=== PATIENT | male | born 1975 | race Caucasian/White ===

== ENCOUNTER 2022-11-07 12:41 | Inpatient (IN) | payer BC ==
--- OUTSIDE RECORDS SUMMARY | 2022-11-07 12:44 | XMS REPORT | Continuity of Care Document ---
:1975 Author Organization [facility] t Address [address] [place] [address] Care Team Providers Name Role Phone Ena Gray MD Primary Care Physician Ghulam Felipe MD Attending Clinician Ena Gray MD Attending Clinician Doctor Unassigned, [place] Attending Clinician Unavailable Lupis Price Attending Clinician LUPIS MYERS Attending Clinician Unavailable Lab, Adc Fam Pob I Attending Clinician Unavailable ENA GRAY Attending Clinician Unavailable WELLINGTON TURNER Attending Clinician Unavailable Yohan Ponce PA-C Attending Clinician Payers Payer Name Policy Type Policy Number Effective Date Expiration Date S ource Problems Condition Condition Condition Status Onset Resolution Last Treating Co mments Source Name Details Category Date Date Treatment Clinician Date Attention Attention Disease Active Uni vers deficit deficit 4-26 ity of disorder disorder 00:00: [place] (ADD) (ADD) 00 Medical without without Branch hyperactiv hyperactiv ity ity Seasonal Seasonal Disease Active 2015-06 Unive rs allergic allergic 0-14 ity of rhinitis rhinitis 00:00: [place] due to due to 00 Medical pollen pollen Branch Bronchitis Bronchitis Disease Active 2015-06 U nivers 0-14 ity of 00:00: [place] 00 Medical Branch Allergies, Adverse Reactions, Alerts This patient has no known allergies or adverse reactions. Social History Social Habit Start Date Stop Date Quantity Comments Source History [facility] o f Alcohol Frequency [place] edical Branch History SDOH University o f Alcohol Std [place] Medical Drinks Branch History [facility] o f Alcohol Binge [place] Medic al Branch Exposure to 2022-01-29 2022-02-08 Not sure University SARS-CoV-2 00:00:00 12:20:00 [facility] (event) Branch Alcohol intake 2022-02-08 2022-02-08 Current drinker Unive rsity of 00:00:00 00:00:00 of alcohol [facility] (finding) [place] Tobacco use and 2016-03-24 2016-03-24 Smokeless tobacco Un iversity of exposure 00:00:00 00:00:00 non-user [facility] Alcohol Comment 2016-03-24 2016-03-24 rare Universit y of 00:00:00 00:00:00 [facility] Sex Ass[birth year] At [birth year] Universit y of 00:00:00 00:00:00 [facility] Smoking Status Start Date Stop Date Source Never smoked tobacco [facility] Medications Ordered Filled Start Stop Current Ordering Indication Dosage Frequency Signature Comments Components Source Medication Medication Date Date Medication? Clinician (SIG) Name Name amphetamine Yes [id number] 30mg Take 1 Univers -dextroamph 9-13 capsule by it y of etamine 30 00:00: mouth [place] mg 24 hr 00 every Medical capsule morning. Branch amphetamine Yes [id number] 30mg Take 1 Univers -dextroamph 9-13 capsule by it y of etamine 30 00:00: mouth [place] mg 24 hr 00 every Medical capsule morning. Branch cefadroxil Yes [id number] 500mg Take 1 Univers 500 mg 8-31 capsule by ity of capsule 00:00: mouth in [place] the Medical morning Branch and 1 capsule in the evening. lisdexamfet 2021- Yes [id number] 60mg Take 1 Univers amine 60 mg 8-31 capsule by it y of capsule 00:00: mouth [place] 00 every Medical morning. Branch cefadroxil Yes [id number] 500mg Take 1 Univers 500 mg 8-31 capsule by ity of capsule 00:00: mouth in [place] the Medical morning Branch and 1 capsule in the evening. lisdexamfet 2021- Yes [id number] 60mg Take 1 Univers amine 60 mg 8-31 capsule by it y of capsule 00:00: mouth [place] 00 every Medical morning. Branch cefadroxil Yes [id number] 500mg Take 1 Univers 500 mg 8-31 capsule by ity of capsule 00:00: mouth in [place] [address] the Medical morning Branch and 1 capsule in the evening. lisdexamfet Yes [id number] 60mg Take 1 Univers amine 60 mg 8-31 capsule by it y of capsule 00:00: mouth [place] [address] every Medical morning. Branch OMEPRAZOLE Yes Take by [facility] ers MAGNESIUM 4-26 mouth. ity of (PRILOSEC 14:16: [place] OTC ORAL) Medical Branch cetirizine Yes 10mg Take 10 mg U nivers (ZYRTEC) 10 4-26 by mouth ity of mg tablet 14:16: daily. [place] [address] Medical Branch OMEPRAZOLE Yes Take by [facility] ers MAGNESIUM 4-26 mouth. ity of (PRILOSEC 14:16: [place] OTC ORAL) Medical Branch cetirizine Yes 10mg Take 10 mg U nivers (ZYRTEC) 10 4-26 by mouth ity of mg tablet 14:16: daily. [place] [address] Medical Branch OMEPRAZOLE Yes Take by [facility] ers MAGNESIUM 4-26 mouth. ity of (PRILOSEC 14:16: [place] OTC ORAL) Medical Branch cetirizine Yes 10mg Take 10 mg U nivers (ZYRTEC) 10 4-26 by mouth ity of mg tablet 14:16: daily. [place] [address] Medical Branch mometasone 2017-06 Yes [id number] 2 sprays Univers 50 0-25 in each ity of mcg/actuati 00:00: nostril [place] as on nasal 00 daily Medical spray Branch mometasone 2017-06 Yes [id number] 2 sprays Univers 50 0-25 in each ity of mcg/actuati 00:00: nostril [place] as on nasal 00 daily Medical spray Branch mometasone 2017-06 Yes [id number] 2 sprays Univers 50 0-25 in each ity of mcg/actuati 00:00: nostril [place] as on nasal 00 daily Medical spray Branch Immunizations Ordered Filled Immunization Date Status Comments [facility] e Immunization Name Name TDAP 2020-10-04 Completed University of 00:00:00 [facility] TDAP 2020-10-04 Completed University of 00:00:00 [facility] TDAP 2020-10-04 Completed University of 00:00:00 [facility] SARS-COV-2 COVID-19 2020-09-17 Completed Unive rsity of PFIZER VACCINE 00:00:00 [facility] SARS-COV-2 COVID-19 2020-09-17 Completed Unive rsity of PFIZER VACCINE 00:00:00 [facility] SARS-COV-2 COVID-19 2020-09-17 Completed Unive rsity of PFIZER VACCINE 00:00:00 [facility] SARS-COV-2 COVID-19 2020-08-27 Completed Unive rsity of PFIZER VACCINE 00:00:00 [facility] SARS-COV-2 COVID-19 2020-08-27 Completed Unive rsity of PFIZER VACCINE 00:00:00 [facility] SARS-COV-2 COVID-19 2020-08-27 Completed Unive rsity of PFIZER VACCINE 00:00:00 [facility] Procedures Procedure Date / Time Performing Clinician Source Performed INSURANCE CORRESPONDENCE 2022-02-11 05:01:00 Doctor Unassigned, [facility] [place] [facility] Encounters Start End Encounter Admission Attending Care Care Encounter Source Date/Time Date/Time Type Type Clinicians Facility Department ID 2022-11-07 2022-11-07 Telephone Destinee [facility] [id number] Univers 00:00:00 00:00:00 [facility] [id number] it y of Anselmo LAWSON 4.2.7.2.686 [place] as PEEWEE?BLEA [id number] [address] MEDICAL OFFICE BUILDING 2022-02-14 2022-02-14 Telephone FleiceRUST [id number] Univers 00:00:00 00:00:00 Ena HEALTH [id number] it y of [place] 4.2.7.2.686 [place] as PEEWEE?BLEA [phone] [address] MEDICAL OFFICE BUILDING 2022-02-11 2022-02-11 Orders Doctor ALMANZAR [id number] Univers 00:00:00 00:00:00 Only Unassigned, JOSEPH [id number] ity of [place] [facility] [id number] [place] as [id number] [address] 2022-02-08 2022-02-08 Office Ena Gray [facility] [id number] Univers 13:00:00 13:15:00 Visit Lupis Myers [facility] [id number] ity of [facility] 4.2.7.2.686 [place] as PEEWEE?BLEA [id number] [address] MEDICAL OFFICE [facility] 2022-02-08 2022-02-08 Outpatient R ANNIE [facility] [id number] Univers 13:00:00 13:00:00 LUPISLESVIA [facility] 2022-02-08 2022-02-08 Outpatient R ANNIE [facility] [id number] Univers 13:00:00 12:47:51 LUPIS ity [facility] 2022-02-08 2022-02-08 Telephone FeliceRUST [id number] Univers 00:00:00 00:00:00 Ena HEALTH [id number] it y of [facility] 4.2.7.2.686 Babatunde as PEEWEE?BLEA [id number] [facility] [address] [place] MEDICAL OFFICE [facility] 2022-02-07 2022-02-07 Refill FeliceRUST [id number] Univers 00:00:00 00:00:00 Ena HEALTH 350.1.13.10 it y of [facility] 4.2.7.2.686 Babatunde as PEEWEE?BLEA [phone] [facility] [address] [place] MEDICAL OFFICE [facility] 2022-01-02 2022-01-02 Orders Doctor ALMANZAR [id number] Univers 00:00:00 00:00:00 Only Unassigned, JOSEPH [id number] ity of [place] [facility] 4.2.7.2.686 Bab[place] as [id number] [address] 2021-12-16 2021-12-16 Orders Doctor YOHAN [id number] [id number] Univers 00:00:00 00:00:00 Only Unassigned, JOSEPH [id number] ity of [place] [facility] 4.2.7.2.686 Babatunde as [id number] [address] 2021-08-31 2021-08-31 Refill FeliceRUST [id number] Univers 00:00:00 00:00:00 [facility] [id number] it y of [facility] 4.2.7.2.686 Babatunde as PEEWEE?BLEA [id number] [address] OFFICE BUILDING 2020-10-06 2020-10-06 Telephone FeliceRUST [id number] Univers 00:00:00 00:00:00 [facility] [id number] it y of [place] 4.2.7.2.686 Babatunde as Professio [id number] [address] Office Building [facility] 2020-10-04 2020-10-04 Office FeliceRUST [id number] Univers 13:51:51 15:19:55 Visit [facility] [id number] it y of [place] 4.2.7.2.686 Babatunde as Professio [phone] [address] Office [facility] 2020-10-04 2020-10-04 Personnel Consultant Lab, Adc Fam Pob I [facility] 1.2. [id number] Univers 14:48:58 15:08:58 Visit Felice Ena [facility] [id number] ity of [place] 4.2.7.2.686 Babatunde as Professio [phone] [address] Office [facility] 2020-10-04 2020-10-04 Outpatient R GRAY [facility] [id number] Univers 14:15:00 14:15:00 [facility] 2020-10-04 2020-10-04 Orders Doctor ALMANZAR [id number] [id number] Univers 00:00:00 00:00:00 Only Unassigned, JOSEPH 350.1.13.10 ity of [place] [facility] 4.2.7.2.686 Babatunde as [id number] [address] 2020-09-17 2020-09-17 Outpatient R JOHNNY, [facility] [id number] Univers 08:10:00 08:10:00 [place] ity [facility] 2020-08-27 2020-08-27 [facility] [id number] Univers 08:10:00 08:10:00 [place] ity [facility] 2020-08-24 2020-08-24 Telephone GrayRUST [id number] Univers 00:00:00 00:00:00 Ena Health 350.1.13.10 it y of [place] 4.2.7.2.686 Babatunde as Professio [phone] [address] Office [facility] 2020-04-01 2020-04-01 Telephone Annie [facility] [id number] Univers 00:00:00 00:00:00 Lupis A Health 350.1.13.10 i ty of [place] 4.2.7.2.686 Babatunde as Professio [id number] [facility] nal [address] [place] [address] 2020-03-31 2020-03-31 Laboratory Lab, Adc Fam Pob I [facility] 1.2. [id number] [id number] Univers 16:27:59 16:47:59 Only Yohan Ponce Health 350.1.13.10 ity of [place] 4.2.7.2.686 Babatunde as Professio [phone] Tn dical nal [address] [place] [address] Office [facility] 2020-03-31 2020-03-31 Outpatient R [facility] [id number] Univers 16:40:00 16:40:00 ity of [facility] 2020-03-31 2020-03-31 Letter Doctor ALMANZAR 1.2.840.114 [id number] Univers 00:00:00 00:00:00 (Out) Unassigned, JOSEPH 350.1.13.10 ity of [place] [facility] 4.2.7.2.686 Bab[place]unde as [phone] [place] [address] Branch 2020-03-31 2020-03-31 Letter Doctor YOHAN 1.2.840.114 [id number] 00:00:00 00:00:00 (Out) Unassigned, JOSEPH 350.1.13.10 ity of [place] [facility] 4.2.7.2.686 [place] as [phone] [place] [address] Branch Results This patient has no known results.
[2022-11-07 13:15] LABS: Absolute Lymphocytes (CBC) 1.5 K/uL (0.7-4.9); Hematocrit 43.5 % (39.6-49.0); Lymphocytes % 26.6 % (15.3-44.8); MCV 72.6 fL (80-100); MPV 10.1 fL (7.6-11.3); RBC Red Blood Cell Count 5.99 M/uL (4.33-5.43)
[2022-11-07 13:35] LABS: ALT/SGPT 62 U/L (16-61); AST/SGOT 31 U/L (15-37); Albumin 3.8 g/dL (3.4-5.0); Alkaline Phosphatase 72 U/L (45-117); BUN Blood Urea Nitrogen 19 mg/dL (7-18); Bicarbonate 25 mEq/L (21-32); Bilirubin Direct 0.1 mg/dL (0-0.2); Bilirubin Indirect, Calculated 0.7 mg/dL (0.2-0.8); Bilirubin Total 0.8 mg/dL (0.2-1.0); Glomerular Filtration Rate 93 ml/min (=/>90); Glucose Level 226 mg/dL (74-106); Magnesium 1.9 mg/dL (1.6-2.4); Potassium 3.3 mEq/L (3.5-5.1); Protein, Total 8.4 g/dL (6.4-8.2); Sodium Level 132 mEq/L (136-145)
[2022-11-07 13:37] LABS: NT PRO-BNP < 5 pg/mL (<125)
[2022-11-07 13:38] LABS: Troponin High Sensitivity 62.4 pg/mL (<58.9)
--- NOTE | 2022-11-07 14:02 | EDPHYS ---
Physician Documentation [facility] Name: Edmund Sarabia Age: 47 yrs Sex: Male : 1975 Arrival Date: 11/07/2022 Time: 12:41 Bed 5 Private MD: ED Physician Jeremy Ruiz HPI: 11/07 14:50 This 47 yrs old Male presents to ER via Ambulatory with complaints of Chest Pain. kb 14:50 The patient or guardian reports chest pain that is located primarily in the substernal kb area. Onset: this morning, at 09:00. The pain radiates to the left arm. Associated signs and symptoms: Pertinent positives: shortness of breath. The chest pain is described as aching. Duration: The patient or guardian reports a single episode. Modifying factors: The symptoms are alleviated by NTG, X1. the symptoms are aggravated by nothing. Severity of pain: At its worst the pain was moderate in the emergency department the pain has resolved. The patient has not experienced similar symptoms in the past. The patient has not recently seen a physician. Historical: - Allergies: 12:45 No Known Allergies; jl7 - Home Meds: 12:45 None [Active]; jl7 - PMHx: 12:45 None; jl7 - Immunization history:: Adult Immunizations unknown. - Social history:: Smoking status: Patient denies any tobacco usage or history of. ROS: 14:48 Constitutional: Negative for fever, chills, and weight loss. kb 14:48 Cardiovascular: Positive for chest pain, Negative for edema, orthopnea, palpitations, paroxysmal nocturnal dyspnea. 14:48 Respiratory: Positive for shortness of breath. 14:48 All other systems are negative. Exam: 14:48 Constitutional: This is a well developed, well nourished patient who is awake, alert, kb and in no acute distress. Head/Face: Normocephalic, atraumatic. ENT: Moist Mucous membranes Chest/axilla: Normal chest wall appearance and motion. Cardiovascular: Regular rate and rhythm with a normal S1 and S2. No gallops, murmurs, or rubs. No pulse deficits. Respiratory: Respirations even and unlabored. No increased work of breathing. Talking in full sentences Abdomen/GI: Soft, non-tender. No distention Skin: Warm, dry with normal turgor. Normal color. MS/ Extremity: Pulses equal, no cyanosis. Neurovascular intact. Full, normal range of motion. Neuro: Awake and alert, GCS 15, oriented to person, place, time, and situation. Moves all extremities. Normal gait. Vital Signs: 12:43 BP 150 / 91; Pulse 80; Resp 15; Temp 97.9; Pulse Ox 96% ; Weight 90.72 kg; Height 6 ft. jl7 0 in. ; Pain 4/10; 13:06 BP 145 / 87; Pulse 85; Resp 15; Pulse Ox 96% ; jl7 19:41 BP 128 / 82; Pulse 73; Resp 17; Temp 98.1(O); Pulse Ox 96% on R/A; rv 12:43 Body Mass Index 27.12 (90.72 kg, 182.88 cm) jl7 12:43 Pain Scale: Adult jl7 MDM: 12:46 Patient medically screened. kb 14:48 Data reviewed: vital signs, nurses notes. kb 14:48 Differential diagnosis: abnormal EKG, acute myocardial infarction, coronary artery kb disease chest wall pain. 14:49 Consideration of Admission/Observation Patient was admitted/placed on observation. kb Management of patient was discussed with the following: Hospitalist: Jean Claude accepts pt for admission under Dr Perez. Historians other than the Patient: EMS: [facility]. Counseling: I had a detailed discussion with the patient and/or guardian regarding: the historical points, exam findings, and any diagnostic results supporting the discharge/admit diagnosis, lab results, radiology results, the need for further work-up and treatment in the hospital. 11/07 12:55 Order name: Basic Metabolic Panel; Complete Time: 13:39 kb 11/07 12:55 Order name: CBC with Diff; Complete Time: 13:21 kb 11/07 12:55 Order name: D-Dimer; Complete Time: 13:21 kb 11/07 12:55 Order name: LFT's; Complete Time: 13:39 kb 11/07 12:55 Order name: Magnesium; Complete Time: 13:39 kb 11/07 12:55 Order name: NT PRO-BNP; Complete Time: 13:39 kb 11/07 12:55 Order name: Troponin HS; Complete Time: 13:39 kb 11/07 16:19 Order name: Hemoglobin A1c; Complete Time: 17:46 EDMS 11/07 16:19 Order name: Magnesium; Complete Time: 17:08 EDNE 11/07 16:19 Order name: Phosphorus; Complete Time: 17:08 [facility]NE 11/07 16:19 Order name: T4 Free; Complete Time: 17:08 [facility] 11/07 16:19 Order name: Thyroid Stimulating Hormone; Complete Time: 17:08 [facility] 11/07 16:19 Order name: Urinalysis w/ reflexes [facility] 11/07 16:19 Order name: Basic Metabolic Panel [facility] 11/07 16:19 Order name: Basic Metabolic Panel [facility] 11/07 16:20 Order name: CBC with Automated Diff [facility] 11/07 16:20 Order name: CBC with Automated Diff [facility] 11/07 16:20 Order name: Lipid Profile [facility] 11/07 16:20 Order name: Lipid Profile [facility] 11/07 16:20 Order name: Troponin High Sensitivity [facility] 11/07 16:20 Order name: Troponin High Sensitivity [facility] 11/07 16:20 Order name: Troponin High Sensitivity [facility] 11/07 12:55 Order name: XRAY Chest (1 view); Complete Time: 14:34 kb 11/07 16:19 Order name: Echo with Doppler [facility] 11/07 12:55 Order name: EKG; Complete Time: 12:56 kb 11/07 16:19 Order name: CONS Physician Consult [facility] 11/07 16:19 Order name: Heart Healthy [facility] 11/07 12:55 Order name: Cardiac monitoring; Complete Time: 13:07 kb 11/07 12:55 Order name: EKG - Nurse/Tech; Complete Time: 13:07 kb 11/07 12:55 Order name: IV Saline Lock; Complete Time: 13:07 kb 11/07 12:55 Order name: Labs collected and sent; Complete Time: 13:07 kb 11/07 12:55 Order name: O2 Per Protocol; Complete Time: 13:07 kb 11/07 12:55 Order name: O2 Sat Monitoring; Complete Time: 13:07 kb Administered Medications: 15:06 Drug: Aspirin PO Chewable Tablet 324 mg Route: PO; ll1 19:43 Follow up: Response: No adverse reaction rv Disposition: 11/08 08:31 Co-signature as Attending Physician, Jeremy Ruiz MD I reviewed the patient's care rn provided by the Advanced Practice Provider and agree with the diagnosis and treatment plan. Disposition Summary: 11/07/22 14:01 Hospitalization Ordered Hospitalization Status: Inpatient Admission kb Provider: Caleb Perez Condition: Stable kb Problem: new kb Symptoms: are unchanged kb Bed/Room Type: Standard kb Location: Telemetry/MedSurg (Inpatient)(11/07/22 17:52) bd Room Assignment: 214(11/07/22 17:52) bd Diagnosis - Chest pain, unspecified - NSTEMI kb Forms: - Medication Reconciliation Form kb - SBAR form kb Signatures: Dispatcher [employer] EDMS Judie Teixeira, SUSANA-C PHOTOVOLTAIC PANEL INSTALLER-Ckb Aleida Caba Roman, MD MD rn Orville Posadas RN RN jl7 Hue Mccormick RN RN ll1 Giles Jeffers RN rv Corrections: (The following items were deleted from the chart) 11/07 14:50 14:48 The patient was not given aspirin in the Emergency Department. Administered by EMS. jovani 17:08 14:01 Telemetry/MedSurg (Inpatient) jovani jl7 17:08 14:01 jovani jl7 17:52 17:08 [facility] ER HOLD jl7 bd 17:52 17:08 ERHOLD- jl7 bd
--- NOTE | 2022-11-07 14:02 | ER ---
Nurse's Notes [facility] Name: Edmund Sarabia Age: 47 yrs Sex: Male : 1975 Arrival Date: 11/07/2022 Time: 12:41 Bed 5 Private MD: Diagnosis: Chest pain, unspecified-NSTEMI Presentation: 11/07 12:43 Chief complaint: EMS states: Toned out for chest pain, squeezing, radiates to left arm, jl7 rated 5/10; 1 nitro given in route, pain down to 4/10. BGL 218, no hx. Coronavirus screen: At this time, the client does not indicate any symptoms associated with coronavirus-19. Ebola Screen: No symptoms or risks identified at this time. Initial Sepsis Screen: Does the patient meet any 2 criteria? No. Patient's initial sepsis screen is negative. Does the patient have a suspected source of infection? No. Patient's initial sepsis screen is negative. Risk Assessment: Do you want to hurt yourself or someone else? Patient reports no desire to harm self or others. Onset of symptoms was November 07, 2022 at 09:30. 12:43 Method Of Arrival: Ambulatory jl7 12:43 Acuity: IRASEMA 2 jl7 Triage Assessment: 13:06 General: Appears in no apparent distress. uncomfortable, Behavior is cooperative, jl7 appropriate for age, anxious. Pain: Complains of pain in anterior aspect of left upper chest Pain radiates to left arm Pain currently is 4 out of 10 on a pain scale. at worst was 5 out of 10 on a pain scale. Quality of pain is described as squeezing, tingling, Pain began 4 hours ago. Neuro: Level of Consciousness is awake, alert, obeys commands, Oriented to person, place, time, situation. Cardiovascular: Patient's skin is warm and dry. Rhythm is regular. Respiratory: Reports shortness of breath Airway is patent Respiratory effort is even, unlabored, Respiratory pattern is regular, symmetrical. Derm: Skin is pink, warm \T\ dry. Historical: - Allergies: 12:45 No Known Allergies; jl7 - Home Meds: 12:45 None [Active]; jl7 - PMHx: 12:45 None; jl7 - Immunization history:: Adult Immunizations unknown. - Social history:: Smoking status: Patient denies any tobacco usage or history of. Screenin:07 [facility] ED Fall Risk Assessment (Adult) History of falling in the last 3 months, jl7 including since admission No falls in past 3 months (0 pts) Score/Fall Risk Level 0 - 2 = Low Risk Oriented to surroundings, Maintained a safe environment. Abuse screen: Denies threats or abuse. Denies injuries from another. Nutritional screening: No deficits noted. Tuberculosis screening: No symptoms or risk factors identified. Assessment: 15:06 Reassessment: No changes from previously documented assessment. Patient and/or family ll1 updated on plan of care and expected duration. Pain level reassessed. 17:59 Reassessment: Attempted to call report, Jesenia Schulz RN will be the nurse, she jl7 will call back after hanging TPN on another pt. Vital Signs: 12:43 BP 150 / 91; Pulse 80; Resp 15; Temp 97.9; Pulse Ox 96% ; Weight 90.72 kg; Height 6 ft. jl7 0 in. ; Pain 4/10; 13:06 BP 145 / 87; Pulse 85; Resp 15; Pulse Ox 96% ; jl7 19:41 BP 128 / 82; Pulse 73; Resp 17; Temp 98.1(O); Pulse Ox 96% on R/A; rv 12:43 Body Mass Index 27.12 (90.72 kg, 182.88 cm) jl7 12:43 Pain Scale: Adult jl7 ED Course: 12:43 Patient arrived in ED. jl7 12:45 Triage completed. jl7 12:45 Arm band placed on right wrist. jl7 12:46 Judie Teixeira FNP-C [facility]. kb 12:46 Jeremy Ruiz MD is Attending Physician. kb 13:00 Orville Posadas RN is Primary Nurse. jl7 13:07 Patient has correct armband on for positive identification. Placed in gown. Bed in low jl7 position. Call light in reach. Side rails up X 1. Client placed on continuous cardiac and pulse oximetry monitoring. NIBP monitoring applied. 13:07 Initial lab(s) drawn, by ED staff, sent to lab. EKG done, by ED staff, reviewed by eileen ARRIETA. Inserted saline lock: 20 gauge in right antecubital area, using aseptic technique. Blood collected. Patient maintains SpO2 saturation greater than 95% on room air. 13:29 XRAY Chest (1 view) In Process Unspecified. EDMS 14:01 Caleb Perez is Hospitalizing Provider. kb 19:08 Primary Nurse role handed off by Orville Posadas, PARMINDER jl7 19:41 Giles Jeffers, RN is Primary Nurse. rv 19:59 No provider procedures requiring assistance completed. Patient admitted, IV remains in rv place. Administered Medications: 15:06 Drug: Aspirin PO Chewable Tablet 324 mg Route: PO; ll1 19:43 Follow up: Response: No adverse reaction rv Medication: 13:07 VIS not applicable for this client. jl7 Outcome: 14:01 Decision to Hospitalize by Provider. kb 19:59 Admitted to Med/surg accompanied by tech, via wheelchair, room 214, with chart, Report rv called to Isaac ZURITA 19:59 Condition: good 19:59 Instructed on the need for admit. 20:00 Patient left the ED. rv Signatures: Dispatcher [employer] EDMS Judie Teixeira, DIALYSIS SOCIAL WORKER-C DIALYSIS SOCIAL WORKER-Ckb Orville Posadas, RN RN jl7 Giles Jeffers, RN RN Hue Nunez RN RN ll1
--- NOTE | 2022-11-07 14:32 | RAD REPORT ---
EXAM DESCRIPTION: Roland Single View11/07/2022 1:28 pm CLINICAL HISTORY: Chest pain COMPARISON: none FINDINGS: The lungs appear clear of acute infiltrate. The heart is normal size IMPRESSION: No acute abnormalities displayed
[2022-11-07] MEDS ORDERED: ASPIRIN 81 MG CHEWABLE TABLET ONE (15:11)
[2022-11-07] MEDS ORDERED: HYDROCODONE/APAP 5/325 MG TAB PO PRN (16:14)
[2022-11-07] MEDS ORDERED: ONDANSETRON 4 MG/2 ML VIAL IV PRN (16:17)
[2022-11-07] MEDS ORDERED: POTASSIUM CL SA 10 MEQ TAB PO ONE (16:20)
--- NOTE | 2022-11-07 16:20 | P.HP ---
Certification for Inpatient Patient admitted to: Observation With expected LOS: <2 Midnights Patient will require the following post-hospital care: None Practitioner: I am a practitioner with admitting privileges, knowledge of patient current condition, hospital course, and medical plan of care. Services: Services provided to patient in accordance with Admission requirements found in Title 42 Section 412.3 of the Code of Federal Regulations Patient History Date of Service: 11/07/22 Reason for admission: chest pain History of Present Illness: Patient is a 47-year-old male with no known past medical history presents with complaint of chest pain located in the substernal area onset this morning while at work. Patient reported that he was standing when he started experiencing pain at work today. Patient rated pain as 6/10 in severity and described pain as tightness in quality. Patient stated that pain radiates to the back of his neck. Patient reported associated signs and symptoms of headache, left hand numbness and dizziness. Patient denies any other signs or symptoms. Symptoms are aggravated or relieved by nothing. Patient was brought to the hospital for medical evaluation. Allergies No Known Allergies Allergy (Unverified 11/07/22 17:05) - Past Medical/Surgical History Past Surgical History: Reviewed- Non-Contributory - Family History Family History: Reviewed- Non-Contributory - Social History Smoking Status: Never smoker Alcohol use: Yes CD- Drugs: No Caffeine use: No Place of Residence: Home Review of Systems General: Unremarkable Eyes: Unremarkable ENT: Unremarkable Respiratory: Unremarkable Cardiovascular: Chest Pain Gastrointestinal: Unremarkable Genitourinary: Unremarkable Musculoskeletal: Neck Pain Integumentary: Unremarkable Neurological: Numbness, Other (Headache, dizziness) Physical Examination - Physical Exam General: Alert, In no apparent distress, Oriented x3, Cooperative HEENT: Atraumatic, PERRLA, Mucous membr. moist/pink, EOMI, Sclerae nonicteric Neck: Supple, 2+ carotid pulse no bruit, No LAD, Without JVD or thyroid abnormality Respiratory: Clear to auscultation bilaterally, Normal air movement Cardiovascular: No edema, Regular rate/rhythm, Normal S1 S2 Capillary refill: <2 Seconds Gastrointestinal: Normal bowel sounds, Soft and benign, No tenderness Musculoskeletal: No clubbing, No swelling, No tenderness Integumentary: No rashes, No tenderness/swelling Neurological: Normal speech, Normal tone, Normal affect Lymphatics: No axilla or inguinal lymphadenopathy - Studies Laboratory Data (last 24 hrs) 11/07/22 13:02: WBC 5.70, Hgb 14.1, Hct 43.5, Plt Count 195 11/07/22 13:02: Sodium 132 L, Potassium 3.3 L, BUN 19 H, Creatinine 0.99, Glucose 226 H, Magnesium 1.9, Total Bilirubin 0.8, AST 31, ALT 62 H, Alkaline Phosphatase 72 Assessment and Plan - Plan --Chest pain. To rule out ACS. Troponin elevated--62.4. Will trend serial troponins. Telemetry to monitor for any significant arrhythmia. Echocardiogram pending to assess cardiac structures and functions. Patient placed on weight- based Lovenox subQ. Cardiology consulted. We will await further recommendations. --New onset DM2. Hemoglobin A1c is 11.8. BS monitoring with sliding scale insulin. Diabetic education consult initiated. --Hypokalemia. Replete as needed. --Acute pain. We will manage pain with current pain medication regimen. --Headache. Tylenol as needed. --DVT prophylaxis with Lovenox subQ. Discharge Plan: Home Plan to discharge in: 48 Hours - Advance Directives Does patient have a Living Will: No Does patient have a Durable POA for Healthcare: No - Code Status/Comfort Care Code Status Assessed: Yes Physician Review: Patient Assessed, Agree with Above Assessment and Plan Critical Care: No
[2022-11-07] MEDS ORDERED: ENOXAPARIN 40 MG/0.4 ML SQ SCH (17:00)
[2022-11-07 17:07] LABS: Magnesium 1.9 mg/dL (1.6-2.4); Phosphorus 3.1 mg/dL (2.5-4.9); Thyroid Stimulating Hormone 1.29 uIU/mL (0.358-3.740)
[2022-11-07] MEDS ORDERED: ENOXAPARIN 80 MG/0.8 ML SQ SCH ×2 (18:44→21:00)
[2022-11-07] MEDS ORDERED: GLUCAGON 1 MG/VIAL IM PRN (19:17)
[2022-11-07] MEDS ORDERED: D50W 25 GM/50 ML SYRINGE IV PRN (19:17)
[2022-11-07] MEDS: ACETAMINOPHEN 325 MG TABLET PO PRN (20:54)
[2022-11-07] MEDS: ENOXAPARIN 100 MG/ML SYR SQ SCH (20:55)
[2022-11-07 21:06] VITALS: BMI 26.9
[2022-11-07] MEDS: INSULIN -REGULAR HUMAN 50 UNIT/0.5 ML ML SQ SCH (22:35)
[2022-11-08 03:40] LABS: Absolute Lymphocytes (CBC) 2.3 K/uL (0.7-4.9); Hematocrit 42.3 % (39.6-49.0); Lymphocytes % 39.6 % (15.3-44.8); MCV 72.6 fL (80-100); MPV 10.8 fL (7.6-11.3); RBC Red Blood Cell Count 5.82 M/uL (4.33-5.43)
[2022-11-08 03:59] LABS: BUN Blood Urea Nitrogen 21 mg/dL (7-18); Bicarbonate 28 mEq/L (21-32); Glomerular Filtration Rate 92 ml/min (=/>90); Glucose Level 181 mg/dL (74-106); HDL Cholesterol 25 mg/dL (40-60); Potassium 3.8 mEq/L (3.5-5.1); Sodium Level 135 mEq/L (136-145)
[2022-11-08 04:15] LABS: LDL, Direct 81 mg/dL (100-129)
[2022-11-08] MEDS ORDERED: POTASSIUM CL SA 10 MEQ TAB PO ONE (09:00)
[2022-11-08] MEDS: ENOXAPARIN 100 MG/ML SYR SQ SCH (09:14)
[2022-11-08] MEDS: INSULIN -REGULAR HUMAN 50 UNIT/0.5 ML ML SQ SCH ×4 (09:14→21:23)
[2022-11-08] MEDS: ACETAMINOPHEN 325 MG TABLET PO PRN (09:14)
[2022-11-08] MEDS: ASPIRIN 81 MG CHEWABLE TABLET PO SCH (09:14)
[2022-11-08] MEDS: PANTOPRAZOLE 40MG TABLET PO SCH (10:28)
--- NOTE | 2022-11-08 11:09 | CON ---
Date of Consultation: 11/08/2022 Reason For Consultation: [id number] myocardial infarction. History Of Present Illness: Mr. Sarabia is 47. He is unaware that he has any past medical history. He came into the hospital with chest pain radiating to the left arm, numbness in the left arm, positi ve troponin of 65, hypokalemic. His glucose was 280, triglyceride was 645. He denied diabetes himse lf. Denied hypertension, dyslipidemia. Denied family history and denied tobacco use. 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 Never has any past medical history or cardiac history before until no w. Past Medical History: Negative. Allergies: NONE. Medications: At home none. Review of Systems: Negative. Social History: Negative. Family History: Negative. Physical Examination: Vital Signs: Stable, afebrile. HEENT: Negative. Neck: Supple with no bruit. Chest: Clear. Cardiac: Reveals regular rhythm and rate. No murmurs, gallops, or rubs. Abdomen: Benign. Extremities: Revealed no clubbing, cyanosis, or edema. Diagnostic Data: EKG is nonspecific. Chest x-ray is negative. Glucose was 280, triglyceride of 645 . Troponin is 65. Potassium is 3.3. Impression And Plan: 1.Non-ST segment elevation myocardial infarction. 2.New onset diabetes. 3.New onset hypertriglyceridemia. 4.Hypokalemia. Needs to be corrected. He needs to be on Lovenox, aspirin, insulin, Tricor. We tess l plan a heart catheterization on him sometimes either today or tomorrow. Echocardiogram is pending. The patient understands the risk and the benefits of the procedure and he agrees to proceed. VIOLA/QUETA Voice ID: [id number] Report ID: [id number]
[2022-11-08] MEDS ORDERED: LIDOCAINE 1% 20 ML MDV ONE (13:32)
[2022-11-08] MEDS ORDERED: HEPA 1000U/500MLS 2,000 UNIT/1,000 ML BAG IV ONE (13:32)
[2022-11-08] MEDS ORDERED: FENTANYL CITR 100 MCG/2 ML ONE (13:33)
[2022-11-08] MEDS ORDERED: MIDAZOLAM HCL 2 MG/2 ML INJ ONE (13:33)
[2022-11-08] MEDS ORDERED: TICAGRELOR 90 MG TABLET PO ONE (13:34)
[2022-11-08] MEDS ORDERED: ASPIRIN 325 MG TAB ONE (13:34)
[2022-11-08] MEDS ORDERED: VERAPAMIL HCL 10 MG/4 ML VIAL IV ONE (13:34)
[2022-11-08] MEDS ORDERED: HEPARIN 5000 UNIT/ML 1 ML VIAL ONE (13:34)
[2022-11-08] MEDS ORDERED: CLOPIDOGREL 75 MG TABLET ONE (13:34)
[2022-11-08] MEDS ORDERED: HEPARIN 10,000 UNIT/10 ML VIAL IV ONE (13:34)
[2022-11-08] MEDS ORDERED: ATROPINE SULF 1 MG/10 ML SYR IV ONE (13:35)
[2022-11-08] MEDS ORDERED: NA CHLORIDE 0.9% 500 ML ONE (13:42)
--- NOTE | 2022-11-08 13:53 | P.PN ---
Subjective Date of Service: 11/08/22 Chief Complaint: chest pain Patient reports 2 intermittent episodes of of mild left-sided chest pain. He is also complaining of headache. Physical Examination - Vital Signs Temperature: 97.6 F Blood Pressure: 138/79 Pulse: 73 Respirations: 18 Pulse Ox (%): 96 - Physical Exam General: Alert, In no apparent distress, Oriented x3 HEENT: Mucous membr. moist/pink Neck: JVD not distended Respiratory: Clear to auscultation bilaterally, Normal air movement Cardiovascular: No edema, Regular rate/rhythm, Normal S1 S2, No murmurs Gastrointestinal: Normal bowel sounds, Soft and benign, Non-distended, No tenderness Musculoskeletal: No swelling, No tenderness Integumentary: No rashes, No cyanosis Neurological: Normal speech, Normal strength at 5/5 x4 extr Assessment And Plan - Current Problems (Diagnosis) (1) Chest pain Current Visit: Yes Status: Acute (2) Hypertriglyceridemia Current Visit: Yes Status: Chronic (3) Type 2 diabetes mellitus Current Visit: Yes Status: Chronic - Plan Troponin mildly elevated. Seen by cardiology who recommended cardiac cath today. Echocardiogram ordered. Hold Lovenox for cardiac cath today Newly diagnosed diabetes. Insulin sliding scale for glucose management. Start Lantus insulin. Monitor fingerstick glucose. Headache likely related to nitroglycerin. Blood pressure readings improved. Start fenofibrate.
--- NOTE | 2022-11-08 14:39 | EKG ---
Test Date: 2022-11-07 Test Time: 12:56:11 Cafeteria Cashier: JAZZ MEASUREMENT RESULTS: Intervals: Rate: 84 WA: 148 QRSD: 90 QT: 352 QTc: 415 [place]: P: 53 WA: 148 QRS: 22 T: 49 INTERPRETIVE STATEMENTS: Normal sinus rhythm T wave abnormality, consider inferior ischemia Abnormal ECG No previous ECG available for comparison Electronically Signed On 11-08-22 14:36:56 CDT by Tucker Pablo
--- NOTE | 2022-11-08 15:55 | OP ---
Date of Procedure: 11/08/2022 Surgeon: VEENA JACK Procedures Performed: 1.Selective coronary angiogram. 2.Left heart catheterization. 3.Balloon angioplasty of totally occluded proximal right PDA. I used 3.0 x 8 mm Compliant balloon. Indication: Non-ST elevation myocardial infarction. Access: Right radial artery 6-Ugandan closed with TR band. Complications: None. Bleeding: Less than 20 mL. Sedation: None. Description Of Procedure: After risks, benefits, alternatives were explained, the patient agreed to procedure and signed informed consent. The patient was brought into the cardiac catheterization [facility], prepped and draped in the usual sterile fashion. Then, I accessed right radial artery using pediatric micropuncture kit and ultrasound guidance and placed a 6-Ugandan Slender sheath and then too k 5-Ugandan [place] 4.0 catheter into the aortic root over a J-wire, engaged the left main and took gloria dard views and then the RCA and took standard views. Then, the catheter was advanced over the wire i nto the LV, measured the LVEDP, pullback did not record any gradient. The patient already received a full dose of Lovenox around 9 o'clock in the morning, so we gave partial dose of heparin 5000 only a nd then took a 6-Ugandan JR4 guide into the aortic root over a J-wire, engaged the RCA, took a Run-Thr ough wire into the PDA and with the wire passing, there was improvement of flow significantly and the n I took a 3.0 x 8 mm balloon and there was no significant disease. I did balloon angioplasty and th en removed the balloon and did an angiogram. The artery was 100% open with 0% residual stenosis and RUBI-3 flow, improving from RUBI-0 to RUBI-3 flow. I then removed the wire. Final angiogram was sat isfactory. I removed the guide and the sheath, and placed TR band with hemostasis. Findings: 1.Left main; large and normal. 2.LAD; normal proximal and mid segment and then luminal irregularities. Normal diagonal branches. 3.Left circumflex; moderate-sized vessel with luminal irregularities and the OM1 branch has proximal 30% stenosis. 4.RCA; large and dominant with proximal 20% stenosis. Then, the PLV has mid 40% stenosis and PDA wa s proximal 100% occluded with RUBI-0 flow, status post successful balloon angioplasty with restoratio n of RUBI-3 flow and 0% residual stenosis. Conclusion: 1.Severe right PDA stenosis, status post successful balloon angioplasty, likely the occlusion was du e to a thrombus as there is no significant disease of the area of 100% stenosis. 2.Moderate coronary artery disease otherwise. Plan: I recommend dual antiplatelet therapy and another 24 hours of IV heparin for therapeutic PTT a nd then the patient mostly needs high-dose statin and to follow up with me in the office in 4 weeks p ost discharge. At that time, we will obtain an echo. /QUETA Voice ID: [id number] Report ID: [id number]
[2022-11-08] MEDS ORDERED: D10W 250 ML BAG IV PRN (17:00)
[2022-11-08 20:53] LABS: Protime INR 1.03
[2022-11-08] MEDS: TICAGRELOR 90 MG TABLET PO SCH (21:23)
[2022-11-08 21:25] LABS: Urine Bilirubin NEGATIVE (Negative); Urine Blood Negative (Negative); Urine Clarity Clear (Clear); Urine Color Light-Yellow (Yellow); Urine Glucose 4+ (Negative); Urine Protein NEGATIVE (Negative); Urine Urobilinogen Normal (Normal)
[2022-11-08] MEDS: HEPARIN/D5W 25,000 UNIT/500 ML BAG IV PRN (21:30)
[2022-11-09 01:42] LABS: Potassium 3.6 mEq/L (3.5-5.1)
[2022-11-09] MEDS: PANTOPRAZOLE 40MG TABLET PO SCH (06:33)
--- NOTE | 2022-11-09 07:12 | ECHO ---
HEIGHT: 6 ft 0 in WEIGHT: 198 lb 6.4 oz DATE OF STUDY: 11/08/[address]: Rubén Aguirre 2-DIMENSIONAL: YES M.MODE: YES DOPPLER: YES COLOR FLOW: YES TDS: YES PORTABLE: YES DEFINITY: BUBBLE STUDY: DIAGNOSIS: CHEST PAIN CARDIAC HISTORY: CATHERIZATION: NO SURGERY: NO PROSTHETIC VALVE: NO PACEMAKER: NO MEASUREMENTS (cm) DIASTOLIC (NORMALS) SYSTOLIC (NORMALS) IVSd 1.1 (0.6-1.2) LA Diam 2.4 (1.9-4.0) LVEF 54% LVIDd 4.0 (3.5-5.7) LVIDs 2.9 (2.0-3.5) %FS 27% LVPWd 1.1 (0.6-1.2) Ao Diam 2.8 (2.0-3.7) 2 DIMENSIONAL ASSESSMENT: RIGHT ATRIUM: NORMAL LEFT ATRIUM: NORMAL RIGHT VENTRICLE: NORMAL LEFT VENTRICLE: NORMAL TRICUSPID VALVE: NORMAL MITRAL VALVE: NORMAL PULMONIC VALVE: NORMAL AORTIC VALVE: NORMAL PERICARDIAL EFFUSION: NONE AORTIC ROOT: NORMAL LEFT VENTRICULAR WALL MOTION: UNABLE TO ACCURATELY EVALUATE DOPPLER/COLOR FLOW: APPEARS NORMAL COMMENTS: 1. VERY POOR WINDOWS 2. OVERALL LEFT VENTRICULAR EJECTION FRACTION APPEARS NORMAL TECHNOLOGIST: RICHAR ESCOBEDO
[2022-11-09] MEDS ORDERED: FENOFIBRATE 160 MG TAB PO SCH (09:00)
[2022-11-09] MEDS ORDERED: POTASSIUM CL SA 10 MEQ TAB PO ONE (09:00)
[2022-11-09 09:06] VITALS: O2SAT 95
[2022-11-09] MEDS: ASPIRIN 81 MG CHEWABLE TABLET PO SCH (10:30)
[2022-11-09] MEDS: INSULIN -REGULAR HUMAN 50 UNIT/0.5 ML ML SQ SCH ×3 (10:37→17:04)
[2022-11-09] MEDS: TICAGRELOR 90 MG TABLET PO SCH ×2 (10:37→20:25)
--- NOTE | 2022-11-09 11:04 | PN ---
Date of Progress Note: 11/09/2022 Mr. Sarabia came in with a non-STEMI. A heart catheterization yesterday revealed a completely occlude d posterior descending artery of the RCA. However, Dr. Pablo was attempting to open up the artery; the artery opened up spontaneously. It was thought that this was a thrombus or maybe a small rupture d plaque. Nevertheless, patient was taken back to the floor. He is on heparin now for 24 hours. Th is will at 9 p.m. tonight, after which he goes home. He is not having any symptoms. At this point, his right wrist entry site is intact. Telemetry is normal. His blood pressure is normal. He has no chest pain. He will be going home on an aspirin, statin, Brilinta, antidiabetic medicine, an d antihypertriglyceridemia medicine. Case was discussed with Dr. Perez. He will see us in the offi ce in 2 weeks. VIOLA/QUETA Voice ID: [id number] Report ID: [id number]
[2022-11-09 16:27] VITALS: TEMP 98.1
--- NOTE | 2022-11-09 16:30 | P.DS ---
Admission Date: 11/08/22 Discharge Date: 11/09/22 Disposition: ROUTINE DISCHARGE Reason for Admission: chest pain - Problems (1) Chest pain Current Visit: Yes Status: Acute (2) Hypertriglyceridemia Current Visit: Yes Status: Chronic (3) Type 2 diabetes mellitus Current Visit: Yes Status: Chronic (4) CAD (coronary artery disease) Current Visit: Yes Status: Acute Brief History of Present Illness: Patient is a 47-year-old male with no known past medical history presented with complaint of chest pain located in the substernal area onset this morning while at work. Patient reported that he was standing when he started experiencing pain at work today. Patient rated pain as 6/10 in severity and described pain as tightness in quality. Patient stated that pain radiates to the back of his neck. Patient reported associated signs and symptoms of headache, left hand numbness and dizziness. Patient denies any other signs or symptoms. Symptoms are aggravated or relieved by nothing. Patient was brought to the hospital for medical evaluation. His initial troponin was mildly elevated. EKG did not meet STEMI criteria. Patient was hospitalized for further management. Hospital Course: Patient admitted to the medical floor and started on full dose Lovenox, aspirin and Lipitor. Lipid profile showed elevated triglyceride. LDL of 81. Patient was seen and evaluated by cardiology who performed cardiac cath which showed 100% occlusion of the PDA suspected to be secondary to a clot. Balloon angioplasty was done. Patient treated with heparin drip for another 24 hours postcardiac cath. His hemoglobin A1c was elevated to 11. Patient was treated with insulin sliding scale. He is discharged with Lantus insulin and metformin. Patient informed to monitor his blood sugar at home. Diabetic teaching done. Vitals have been stable stable. Patient is deemed stable for discharge. Vital Signs/Physical Exam: Temp Pulse Resp BP Pulse Ox 97.6 F 70 16 118/70 95 11/09/22 12:00 11/09/22 12:00 11/09/22 12:00 11/09/22 12:11/09/22 12:00 General: Alert, In no apparent distress, Oriented x3 HEENT: Mucous membr. moist/pink Neck: JVD not distended Respiratory: Clear to auscultation bilaterally, Normal air movement Cardiovascular: No edema, Regular rate/rhythm, Normal S1 S2 Gastrointestinal: Normal bowel sounds, Soft and benign, Non-distended, No tenderness Musculoskeletal: No swelling, No tenderness Integumentary: No rashes, No cyanosis Neurological: Normal strength at 5/5 x4 extr, Cranial nerves 3-12 intact Lymphatics: No axilla or inguinal lymphadenopathy Laboratory Data at Discharge: WBC 5.70 thou/uL (4.3-10.9) 11/08/22 02:52 Hgb 13.8 g/dL (13.6-17.9) 11/08/22 02:52 Hct 42.3 % (39.6-49.0) 11/08/22 02:52 Plt Count 195 thou/uL (152-406) 11/08/22 02:52 PT 11.3 SECONDS (9.5-12.5) 11/08/22 20:17 INR 1.03 11/08/22 20:17 APTT 42.2 SECONDS (24.3-36.9) H 11/09/22 15:25 Sodium 137 mEq/L (136-145) 11/09/22 01:16 Potassium 3.6 mEq/L (3.5-5.1) 11/09/22 01:16 BUN 21 mg/dL (7-18) H 11/09/22 01:16 Creatinine 0.95 mg/dL (0.70-1.30) 11/09/22 01:16 Glucose 223 mg/dL (74-106) H 11/09/22 01:16 Phosphorus 3.1 mg/dL (2.5-4.9) 11/07/22 16:34 Magnesium 1.9 mg/dL (1.6-2.4) 11/07/22 16:34 Total Bilirubin 0.8 mg/dL (0.2-1.0) 11/07/22 13:02 AST 31 U/L (15-37) 11/07/22 13:02 ALT 62 U/L (16-61) H 11/07/22 13:02 Alkaline Phosphatase 72 U/L (45-117) 11/07/22 13:02 Triglycerides 645 mg/dL (<150) H 11/08/22 02:52 Cholesterol 175 mg/dL (<200) 11/08/22 02:52 LDL Cholesterol Direct 81 mg/dL (100-129) L 11/08/22 02:52 HDL Cholesterol 25 mg/dL (40-60) L 11/08/22 02:52 Cholesterol/HDL Ratio 7.00 11/08/22 02:52 Home Medications: Alcohol Antiseptic Pads [Alcohol Swabs] 1 each TP DAILY #1 box 11/09/22 Aspirin Chewable [Aspirin Chewable*] 81 mg PO DAILY #30 tab.chew 11/09/22 Blood Sugar Diagnostic [Blood Glucose Test Strip] 1 each MC DAILY #30 strip 11/09/22 Blood-Glucose Meter [Blood Glucose Monitoring] 1 each MC DAILY #1 ea 11/09/22 Fenofibrate 160 mg PO DAILY #30 tab 11/09/22 Insulin Detemir [Levemir Flexpen] 15 unit SQ DAILY #15 ml 11/09/22 Lancets [Lancets Thin] 1 each MC DAILY #100 ea 11/09/22 Metformin HCl 500 mg PO BID #60 tab 11/09/22 Pantoprazole [Protonix Tab*] 40 mg PO DAILYAC #30 tab 11/09/22 Pen Needle, Diabetic [Insulin Pen Needle] 1 dis.ndl MC DAILY #100 dis.ndl 11/09/22 Ticagrelor [Brilinta*] 90 mg PO BID #30 tab 11/09/22 New Medications: Alcohol Antiseptic Pads [Alcohol Swabs] 1 each TP DAILY #1 box Aspirin Chewable [Aspirin Chewable*] 81 mg PO DAILY #30 tab.chew Blood-Glucose Meter [Blood Glucose Monitoring] 1 each MC DAILY #1 ea Blood Sugar Diagnostic [Blood Glucose Test Strip] 1 each MC DAILY #30 strip Ticagrelor [Brilinta*] 90 mg PO BID #30 tab Fenofibrate 160 mg PO DAILY #30 tab Pen Needle, Diabetic [Insulin Pen Needle] 1 dis.ndl MC DAILY #100 dis.ndl Lancets [Lancets Thin] 1 each MC DAILY #100 ea Insulin Detemir [Levemir Flexpen] 15 unit SQ DAILY #15 ml Metformin HCl 500 mg PO BID #60 tab Pantoprazole [Protonix Tab*] 40 mg PO DAILYAC #30 tab Diet: ADA Activity: Ad janusz Followup: Lasha Viveros MD [Primary Care Provider] - Tucker Pablo MD [ACTIVE - CAN ADMIT] - 1-2 Weeks Time spent managing pt's care (in minutes): 36
[2022-11-09] MEDS: HEPARIN/D5W 25,000 UNIT/500 ML BAG IV PRN (19:50)
[2022-11-09 22:04] VITALS: BP 125/74
== END 2022-11-09 21:35 | disposition home or self-care (01) | DRG 251 ==
LOC: ER 12:41 → ERHOLD 16:12 → 2ND 20:02 → OBSVTOIN 11-08 16:15
PROVIDERS: ADMIT Internal Medicine; ATTEND Internal Medicine
PROC: 02703ZZ Dilation of Coronary Artery, One Artery, Percutaneous Approach (ICD-10-PCS; principal; 2022-11-08)
PROC: 4A023N7 Measurement of Cardiac Sampling and Pressure, Left Heart, Percutaneous Approach (ICD-10-PCS; 2022-11-08)
PROC: B2111ZZ Fluoroscopy of Multiple Coronary Arteries using Low Osmolar Contrast (ICD-10-PCS; 2022-11-08)
DX: I21.4 Non-ST elevation (NSTEMI) myocardial infarction (principal); I74.8 Embolism and thrombosis of other arteries; E11.9 Type 2 diabetes mellitus without complications; E87.6 Hypokalemia; E78.1 Pure hyperglyceridemia; Z79.4 Long term (current) use of insulin; Z79.82 Long term (current) use of aspirin; Z79.84 Long term (current) use of oral hypoglycemic drugs; Z79.899 Other long term (current) drug therapy
CPT/HCPCS: 36415; 71045; 76937; 80048; 80061; 80076; 81003; 82947; 83036; 83735; 83880; 84100; 84439; 84443; 84484; 85025; 85379; 85610; 85730; 92920; 93005; 93306; 93458; 99285; C1725; C1893; G0378; J0461; J1644; J1650; J1815; J2001; J2250; J3010; J7040; Q9966

== ENCOUNTER 2024-02-21 09:09 | Observation (INO) | payer BC ==
--- OUTSIDE RECORDS SUMMARY | 2024-02-21 09:15 | XMS REPORT | Continuity of Care Document ---
Author Name Unknown Address [address] [facility] [place] [address] [facility] thconnect Address [address] [facility] [address] [place] [address] Care Team Providers Care Craniologist Name Role Phone Lasha Gray MD Primary Care Physician [phone] BOGDAN FERNANDEZ Attending Clinician Unavailabl Elda Cruz MD Attending Clinician [phone] Kota Hassan MD Attending Clinician [phone] Caleb Glez MD Attending Clinician [phone] CALEB GLEZ Attending Clinician Unavaila beto [facility] Attending Clinician Unavailable EDWARD CONLEY Attending Clinician Unavailable EDWARD CONLEY Attending Clinician Unavailable Edward Conley MD Attending Clinician [phone] ELDA CARDENAS Attending Clinician Unavailable ELDA CARDENAS Attending Clinician Unavailable Doctor Unassigned, [place] Attending Clinician U Bogdan Mendez MD Attending Clinician [phone] LE ESCOBEDO Attending Clinician Unavailab LE Montano Attending Clinician Unavailab melvin Gaffney MD, Selina West Attending Clinician + [phone] Elif Jones Attending Clinician [phone] ELIF VILLEDA Attending Clinician Unavailable Emilie Patricio MD Attending Clinician Lasha Gray MD Attending Clinician [phone] Lab, Ang - Db Attending Clinician Unavailable Lupis Price Attending Clinician [phone] LUPIS VALENCIA Attending Clinician Unavailable LASHA GRAY Attending Clinician Unavailable Ghulam Felipe MD Attending Clinician + [phone] Lab, Adc Fam Pob I Attending Clinician Unavailab WELLINGTON Story Attending Clinician Unavailable Dandy Ponce PA-C Attending Clinician [phone] EDWARD CONLEY Admitting Clinician Unavailable Payers Payer Name Policy Type Policy Number Effective Date Expirati on Date Source [facility] [id number] 2015 00:00:00 Problems Condition Name Condition Details Condition Category Status Onset Date Resolution Date Last Treatment Date Treating Clinician Comments Source Encounter for diagnostic colonoscop y due to change in bowel habits Encounter for diagnostic colonoscop y due to change in bowel habits Disease Active 11-14 00:00: 00 [facility] Gastroesop hageal reflux disease, unspecifie d whether esophagiti s present Gastroesop hageal reflux disease, unspecifie d whether esophagiti s present Disease Active 10-24 00:00: 00 [facility] Black stools Black stools Disease Active 10-24 00:00: 00 [facility] Colon cancer screening Colon cancer screening Disease Active 10-24 00:00: 00 [facility] Type 2 diabetes mellitus without complicati on, without long-term current use of insulin Type 2 diabetes mellitus without complicati on, without long-term current use of insulin Disease Active 11-13 00:00: 00 [facility] Coronary artery disease involving [place] coronary artery of [place] heart with angina pectoris Coronary artery disease involving [place] coronary artery of [place] heart with angina pectoris Disease Active 11-13 00:00: 00 [facility] Attention deficit disorder (ADD) without hyperactiv ity Attention deficit disorder (ADD) without hyperactiv ity Disease Active 4-26 00:00: 00 [facility] Seasonal allergic rhinitis due to pollen Seasonal allergic rhinitis due to pollen Disease Active 2015-06 0 00:00: 00 [facility] Bronchitis Bronchitis Disease Active 2015-06 00:00: 00 [facility] Allergies, Adverse Reactions, Alerts Allergy Name Allergy Type Status Severity Reaction(s) Onset Date Inactive Date Treating Clinician Comments Source NO KNOWN ALLERGIE S Drug Class Active [facility] Social History Social Habit Start Date Stop Date Quantity Comments Source History SDOH Alcohol Frequency [facility] History SDOH Alcohol Binge [facility] Alcoholic beverage intake 2024-02-14 00:00:00 2024-02-14 00:00:00 Current drinker of alcohol (finding) [facility] Alcohol intake 2023-09-28 00:00:00 2023-09-28 00:00:00 Current drinker of alcohol (finding) [facility] History of Social function 2023-09-28 00:00:00 2023-09-28 00:00:00 [facility] Exposure to SARS-CoV-2 (event) 2022-01-29 00:00:00 2022-02-08 12:20:00 Not sure [facility] Tobacco use and exposure 2016-03-24 00:00:00 2016-03-24 00:00:00 Smokeless tobacco non-user [facility] Alcohol Comment 2016-03-24 00:00:00 2016-03-24 00:00:00 rare [facility] Sex assigned at 1975 00:00:00 1975 00:00:00 [facility] Smoking Status Start Date Stop Date Source Never smoked tobacco [facility] Medications Ordered Medication Name Filled Medication Name Start Date Stop Date Current Medication? Ordering Clinician Indication Dosage Frequency Signature (SIG) Comments Components Source SUCRALFATE 1 gram tablet 02-17 00:00: 00 Yes [id number] 1g TAKE 1 TABLET BY MOUTH FOUR TIMES DAILY [facility] FAMOTIDINE 20 mg tablet 02-12 00:00: 00 Yes [id number] TAKE 1 TABLET BY MOUTH TWICE DAILY NEEDED FOR HEARTBURN [facility] NAPROXEN 500 mg tablet 01-31 00:00: 00 Yes [id number] TAKE 1 TABLET BY MOUTH TWICE DAILY WITH MEALS NEEDED FOR MODERATE PAIN OR HEADACHE [facility] FAMOTIDINE 20 mg tablet 01-31 00:00: 00 02-12 00:00 :00 No [id number] TAKE 1 TABLET BY MOUTH TWICE DAILY NEEDED FOR HEARTBURN [facility] Fenofibrate 160 mg tablet 01-13 00:00: 00 Yes [id number] 160mg Take 1 tablet by mouth in the morning. [facility] metFORMIN 500 mg tablet 01-13 00:00: 00 Yes [id number] TAKE 2 TABLETS BY MOUTH IN THE MORNING [facility] sucralfate 1 gram tablet 01-13 00:00: 00 02-17 00:00 :00 No [id number] 1g Take 1 tablet by mouth 4 (four) times daily. [facility] famotidine 20 mg tablet 01-13 00:00: 00 01-31 00:00 :00 No [id number] 20mg Take 1 tablet by mouth 2 (two) times daily as needed for Heartburn. [facility] naproxen 500 mg tablet 01-13 00:00: 00 01-31 00:00 :00 No [id number] 500mg Take 1 tablet by mouth 2 (two) times daily with meals as needed for Pain (scale 4-6) (Headache) . [facility] diatrizoate sonu-diatriz oat sod (GASTROGRAF IN) 66-10 % oral solution 20 mL 12-13 19:45: 00 12-13 19:55 :00 No [id number] 20mL 20 mL, Oral, ONCE, 1 dose, On Sun12/14/23 at 1445, Routine [facility] iopamidol (ISOVUE 370-500 mL) injection 84 mL 12-13 19:41: 00 12-13 20:00 :00 No [id number] 84mL 84 mL, Intravenou s, ONCE, 1 dose, On Sun12/14/23 at 1500, Routine [facility] acetaminoph en (OFIRMEV) IV piggyback 1,000 mg 12-13 19:15: 00 12-13 19:09 :00 No 1000mg 1,000 mg, IV Piggyback, at 400 mL/hr Administer over 15 Minutes, ONCE, 1 dose, On Sun12/14/23 at 1415, Routine, Is the patient strict NPO and unable to tolerate oral medication s? Yes [facility] NaCl 0.9% (NS) bolus infusion 1,000 mL 12-13 19:15: 00 12-13 20:00 :00 No 1000mL at 999 mL/hr, 1,000 mL, IV Infusion, ONCE, 1 dose, On Sun12/14/23 at 1415, HUGO [facility] ondansetron (ZOFRAN (PF)) injection 4 mg 12-13 18:30: 00 12-13 18:52 :00 No 4mg 4 mg, Slow IV Push, ONCE, 1 dose, On Sun12/14/23 at 1330, HUGO [facility] water for irrigation irrigation solution 12-13 12:34: 00 12-13 13:45 :47 No PRN, Starting on Sun12/14/23 at 0734, Until Sun12/14/23 at 0845, Routine, Intra-op [facility] simethicone (GAS RELIEF (SIMETHICON E)) 40 mg/0.6 mL drops 12-13 12:34: 00 12-13 13:45 :47 No PRN, Starting on Sun12/14/23 at 0734, Until Sun12/14/23 at 0845, Routine, Intra-op [facility] lactated ringers IV infusion 1,000 mL 12-13 11:45: 00 12-13 11:48 :00 No 1000mL at 42 mL/hr, 1,000 mL, IV Infusion, ONCE, 1 dose, On Sun12/14/23 at 0645, Routine, DSU Pre-op [facility] ondansetron 4 mg disintegrat ing tablet 12-13 00:00: 00 Yes [id number] 4mg Take 1 tablet by mouth every 8 (eight) hours as needed for Nausea and Vomiting (N/V). [facility] amoxicillin -clavulanat e 875-125 mg per tablet 12-13 00:00: 00 12-19 04:59 :00 Yes [id number] 1{tbl} Take 1 tablet by mouth every 12 (twelve) hours for 5 days. [facility] cetirizine (ZYRTEC) 10 mg tablet 11-26 13:19: 58 Yes 10mg Take 1 tablet by mouth at bedtime as needed. [facility] empaglifloz in (JARDIANCE) 25 mg Tab tablet 11-22 00:00: 00 Yes [id number] 25mg Take 1 tablet by mouth in the morning. [facility] semaglutide (OZEMPIC) 0.25 mg or 0.5 mg (2 mg/3 mL) PnIj 11-22 00:00: 00 Yes [id number] .5mg inject 0.5 mg under the skin weekly. DX E11.9 [facility] metFORMIN 500 mg tablet 11-22 00:00: 00 01-13 00:00 :00 No [id number] TAKE 1 TABLET BY MOUTH IN THE MORNING AND IN THE EVENING WITH MEALS [facility] Insulin Detemir (LEVEMIR FLEXPEN) 100 unit/mL (3 mL) injection 11-22 00:00: 00 11-22 00:00 :00 No [id number] 15U inject 15 Units under the skin in the morning. [facility] pantoprazol e 40 mg EC tablet 10-24 00:00: 00 04-23 05:59 :00 No [id number] 40mg Take 1 tablet by mouth in the morning and 1 tablet in the evening. Do all this for 180 days. [facility] peg-electro lyte soln 236-22.74-6 .74 -5.86 gram solution 2024-0 5-16 00:00: 00 12-13 00:00 :00 No [id number] Take as directed before colonoscop y [facility] semaglutide (OZEMPIC) 0.25 mg or 0.5 mg (2 mg/3 mL) PnIj 5-15 00:00: 00 11-22 00:00 :00 No [id number] .5mg inject 0.5 mg under the skin weekly. DX E11.9 [facility] metFORMIN 500 mg tablet 10-07 00:00: 00 11-22 00:00 :00 No [id number] TAKE 1 TABLET BY MOUTH IN THE MORNING AND IN THE EVENING WITH MEALS [facility] Fenofibrate 160 mg tablet 09-30 00:00: 00 01-13 00:00 :00 No [id number] 160mg TAKE 1 TABLET BY MOUTH IN THE MORNING [facility] pantoprazol e 40 mg EC tablet 09-27 00:00: 00 Yes [id number] 40mg Take 1 tablet by mouth in the morning. [facility] empaglifloz in (JARDIANCE) 25 mg Tab 2- 00:00: 00 11-22 00:00 :00 No [id number] 25mg Take 1 tablet by mouth in the morning. [facility] semaglutide (OZEMPIC) 0.25 mg or 0.5 mg (2 mg/3 mL) Ij 2-02 00:00: 00 10-22 00:00 :00 No [id number] .5mg inject 0.5 mg under the skin weekly. [facility] metFORMIN 500 mg tablet 2- 00:00: 00 10-07 00:00 :00 No [id number] 500mg Take 1 tablet by mouth in the morning and 1 tablet in the evening. Take with meals. [facility] lisdexamfet amine 60 mg capsule 2022-06 2- 00:00: 00 Yes [id number] 60mg Take 1 capsule by mouth every morning. [facility] Insulin Detemir (LEVEMIR FLEXPEN) 100 unit/mL (3 mL) injection 2022-06 0-18 00:00: 00 11-22 00:00 :00 No [id number] 15U inject 15 Units under the skin in the morning. [facility] lisdexamfet amine 60 mg capsule 2022-06 018 00:00: 00 05-17 00:00 :00 No [id number] 60mg Take 1 capsule by mouth every morning. [facility] metFORMIN 500 mg tablet 03-09 00:00: 00 07-13 00:00 :00 No [id number] 500mg Take 1 tablet by mouth in the morning and 1 tablet in the evening. Take with meals. [facility] empaglifloz in (JARDIANCE) 25 mg Tab 03-09 00:00: 00 07-13 00:00 :00 No [id number] 25mg Take 1 tablet by mouth in the morning. [facility] Insulin Detemir (LEVEMIR FLEXPEN) 100 unit/mL (3 mL) injection 03-09 00:00: 00 03-28 00:00 :00 No [id number] 15U inject 15 Units under the skin in the morning. [facility] empaglifloz in (JARDIANCE) 10 mg 01-05 00:00: 00 03-09 00:00 :00 No [id number] 10mg Take 1 tablet by mouth in the morning. [facility] lisdexamfet amine 60 mg capsule 12-25 00:00: 00 03-28 00:00 :00 No [id number] 60mg Take 1 capsule by mouth every morning. [facility] metFORMIN 500 mg tablet 12-25 00:00: 00 03-09 00:00 :00 No [id number] 500mg Take 1 tablet by mouth in the morning and 1 tablet in the evening. Take with meals. [facility] Fenofibrate 160 mg tablet 12 00:00: 00 09-30 00:00 :00 No [id number] 160mg Take 1 tablet by mouth in the morning. [facility] rosuvastati n 20 mg tablet 11-29 00:00: 00 Yes 20mg Take 1 tablet by mouth in the morning. [facility] metFORMIN 500 mg tablet 11-10 00:00: 00 12-25 00:00 :00 No [facility] Alcohol Swabs PadM 11-09 00:00: 00 Yes [facility] MICRO THIN LANCETS 33 gauge Misc 11-09 00:00: 00 Yes [facility] BD ULTRAFINE III MINI PEN 31 gauge x 3/16" Ndle 11-09 00:00: 00 Yes [facility] aspirin 81 mg chewable tablet 11-09 00:00: 00 12-13 00:00 :00 No [facility] LEVEMIR FLEXPEN 100 unit/mL (3 mL) injection 11-09 00:00: 00 03-09 00:00 :00 No [facility] BRILINTA 90 mg tablet 11-09 00:00: 00 12-25 00:00 :00 No [facility] Fenofibrate 160 mg tablet 11-09 00:00: 00 12-20 00:00 :00 No [facility] amphetamine -dextroamph etamine 30 mg 24 hr capsule 9-13 00:00: 00 12-25 00:00 :00 No [id number] 30mg Take 1 capsule by mouth every morning. [facility] cefadroxil 500 mg capsule 02-08 00:00: 00 12-13 00:00 :00 No [id number] 500mg Take 1 capsule by mouth in the morning and 1 capsule in the evening. [facility] lisdexamfet amine 60 mg capsule 02-08 00:00: 00 12-25 00:00 :00 No [id number] 60mg Take 1 capsule by mouth every morning. [facility] cetirizine (ZYRTEC) 10 mg tablet 10-04 14:16: Yes 10mg Take 10 mg by mouth daily. [facility] OMEPRAZOLE MAGNESIUM (PRILOSEC OTC ORAL) 10-04 14:16: 09-27 00:00 :00 No Take by mouth. [facility] mometasone 50 mcg/actuati on nasal spray 2017-06 00:00: 00 12-13 00:00 :00 No [id number] 2 sprays in each nostril daily [facility] Immunizations Ordered Immunization Name Filled Immunization Name Date Status Comments Source SARS-COV-2 COVID-19 PFIZER VACCINE 2021-05-25 00:00:00 Completed [facility] SARS-COV-2 COVID-19 PFIZER VACCINE 2021-05-25 00:00:00 Completed [facility] SARS-COV-2 COVID-19 PFIZER VACCINE 2021-05-25 00:00:00 Completed [facility] TDAP 2020-10-04 00:00:00 Completed [facility] TDAP 2020-10-04 00:00:00 Completed [facility] TDAP 2020-10-04 00:00:00 Completed [facility] TDAP 2020-10-04 00:00:00 Completed [facility] TDAP 2020-10-04 00:00:00 Completed [facility] TDAP 2020-10-04 00:00:00 Completed [facility] TDAP 2020-10-04 00:00:00 Completed [facility] TDAP 2020-10-04 00:00:00 Completed [facility] TDAP 2020-10-04 00:00:00 Completed [facility] TDAP 2020-10-04 00:00:00 Completed [facility] TDAP 2020-10-04 00:00:00 Completed [facility] TDAP 2020-10-04 00:00:00 Completed [facility] TDAP 2020-10-04 00:00:00 Completed [facility] TDAP 2020-10-04 00:00:00 Completed [facility] TDAP 2020-10-04 00:00:00 Completed [facility] TDAP 2020-10-04 00:00:00 Completed [facility] SARS-COV-2 COVID-19 PFIZER VACCINE 2020-09-17 00:00:00 Completed [facility] SARS-COV-2 COVID-19 PFIZER VACCINE 2020-09-17 00:00:00 Completed [facility] SARS-COV-2 COVID-19 PFIZER VACCINE 2020-09-17 00:00:00 Completed [facility] SARS-COV-2 COVID-19 PFIZER VACCINE 2020-09-17 00:00:00 Completed [facility] SARS-COV-2 COVID-19 PFIZER VACCINE 2020-09-17 00:00:00 Completed [facility] SARS-COV-2 COVID-19 PFIZER VACCINE 2020-09-17 00:00:00 Completed [facility] SARS-COV-2 COVID-19 PFIZER VACCINE 2020-09-17 00:00:00 Completed [facility] SARS-COV-2 COVID-19 PFIZER VACCINE 2020-09-17 00:00:00 Completed [facility] SARS-COV-2 COVID-19 PFIZER VACCINE 2020-09-17 00:00:00 Completed [facility] SARS-COV-2 COVID-19 PFIZER VACCINE 2020-09-17 00:00:00 Completed [facility] SARS-COV-2 COVID-19 PFIZER VACCINE 2020-09-17 00:00:00 Completed [facility] SARS-COV-2 COVID-19 PFIZER VACCINE 2020-09-17 00:00:00 Completed [facility] SARS-COV-2 COVID-19 PFIZER VACCINE 2020-09-17 00:00:00 Completed [facility] SARS-COV-2 COVID-19 PFIZER VACCINE 2020-09-17 00:00:00 Completed [facility] SARS-COV-2 COVID-19 PFIZER VACCINE 2020-09-17 00:00:00 Completed [facility] SARS-COV-2 COVID-19 PFIZER VACCINE 2020-09-17 00:00:00 Completed [facility] SARS-COV-2 COVID-19 PFIZER VACCINE 2020-08-27 00:00:00 Completed [facility] SARS-COV-2 COVID-19 PFIZER VACCINE 2020-08-27 00:00:00 Completed [facility] SARS-COV-2 COVID-19 PFIZER VACCINE 2020-08-27 00:00:00 Completed [facility] SARS-COV-2 COVID-19 PFIZER VACCINE 2020-08-27 00:00:00 Completed [facility] SARS-COV-2 COVID-19 PFIZER VACCINE 2020-08-27 00:00:00 Completed [facility] SARS-COV-2 COVID-19 PFIZER VACCINE 2020-08-27 00:00:00 Completed [facility] SARS-COV-2 COVID-19 PFIZER VACCINE 2020-08-27 00:00:00 Completed [facility] SARS-COV-2 COVID-19 PFIZER VACCINE 2020-08-27 00:00:00 Completed [facility] SARS-COV-2 COVID-19 PFIZER VACCINE 2020-08-27 00:00:00 Completed [facility] SARS-COV-2 COVID-19 PFIZER VACCINE 2020-08-27 00:00:00 Completed [facility] SARS-COV-2 COVID-19 PFIZER VACCINE 2020-08-27 00:00:00 Completed [facility] SARS-COV-2 COVID-19 PFIZER VACCINE 2020-08-27 00:00:00 Completed [facility] SARS-COV-2 COVID-19 PFIZER VACCINE 2020-08-27 00:00:00 Completed [facility] SARS-COV-2 COVID-19 PFIZER VACCINE 2020-08-27 00:00:00 Completed [facility] SARS-COV-2 COVID-19 PFIZER VACCINE 2020-08-27 00:00:00 Completed [facility] SARS-COV-2 COVID-19 PFIZER VACCINE 2020-08-27 00:00:00 Completed [facility] SARS-COV-2 COVID-19 PFIZER VACCINE Unknown Completed [facility] SARS-COV-2 COVID-19 PFIZER VACCINE Unknown Completed [facility] TDAP Unknown Completed [facility] SARS-COV-2 COVID-19 PFIZER VACCINE Unknown Completed [facility] SARS-COV-2 COVID-19 PFIZER VACCINE Unknown Completed [facility] SARS-COV-2 COVID-19 PFIZER VACCINE Unknown Completed [facility] TDAP Unknown Completed [facility] SARS-COV-2 COVID-19 PFIZER VACCINE Unknown Completed [facility] SARS-COV-2 COVID-19 PFIZER VACCINE Unknown Completed [facility] SARS-COV-2 COVID-19 PFIZER VACCINE Unknown Completed [facility] TDAP Unknown Completed [facility] SARS-COV-2 COVID-19 PFIZER VACCINE Unknown Completed [facility] SARS-COV-2 COVID-19 PFIZER VACCINE Unknown Completed [facility] SARS-COV-2 COVID-19 PFIZER VACCINE Unknown Completed [facility] TDAP Unknown Completed [facility] SARS-COV-2 COVID-19 PFIZER VACCINE Unknown Completed [facility] SARS-COV-2 COVID-19 PFIZER VACCINE Unknown Completed [facility] SARS-COV-2 COVID-19 PFIZER VACCINE Unknown Completed [facility] TDAP Unknown Completed [facility] SARS-COV-2 COVID-19 PFIZER VACCINE Unknown Completed [facility] SARS-COV-2 COVID-19 PFIZER VACCINE Unknown Completed [facility] SARS-COV-2 COVID-19 PFIZER VACCINE Unknown Completed [facility] TDAP Unknown Completed [facility] SARS-COV-2 COVID-19 PFIZER VACCINE Unknown Completed [facility] SARS-COV-2 COVID-19 PFIZER VACCINE Unknown Completed [facility] SARS-COV-2 COVID-19 PFIZER VACCINE Unknown Completed [facility] TDAP Unknown Completed [facility] SARS-COV-2 COVID-19 PFIZER VACCINE Unknown Completed [facility] SARS-COV-2 COVID-19 PFIZER VACCINE Unknown Completed [facility] SARS-COV-2 COVID-19 PFIZER VACCINE Unknown Completed [facility] TDAP Unknown Completed [facility] SARS-COV-2 COVID-19 PFIZER VACCINE Unknown Completed [facility] SARS-COV-2 COVID-19 PFIZER VACCINE Unknown Completed [facility] SARS-COV-2 COVID-19 PFIZER VACCINE Unknown Completed [facility] TDAP Unknown Completed [facility] SARS-COV-2 COVID-19 PFIZER VACCINE Unknown Completed [facility] SARS-COV-2 COVID-19 PFIZER VACCINE Unknown Completed [facility] SARS-COV-2 COVID-19 PFIZER VACCINE Unknown Completed [facility] TDAP Unknown Completed [facility] SARS-COV-2 COVID-19 PFIZER VACCINE Unknown Completed [facility] SARS-COV-2 COVID-19 PFIZER VACCINE Unknown Completed [facility] SARS-COV-2 COVID-19 PFIZER VACCINE Unknown Completed [facility] TDAP Unknown Completed [facility] SARS-COV-2 COVID-19 PFIZER VACCINE Unknown Completed [facility] SARS-COV-2 COVID-19 PFIZER VACCINE Unknown Completed [facility] SARS-COV-2 COVID-19 PFIZER VACCINE Unknown Completed [facility] TDAP Unknown Completed [facility] SARS-COV-2 COVID-19 PFIZER VACCINE Unknown Completed [facility] SARS-COV-2 COVID-19 PFIZER VACCINE Unknown Completed [facility] SARS-COV-2 COVID-19 PFIZER VACCINE Unknown Completed [facility] TDAP Unknown Completed [facility] SARS-COV-2 COVID-19 PFIZER VACCINE Unknown Completed [facility] SARS-COV-2 COVID-19 PFIZER VACCINE Unknown Completed [facility] SARS-COV-2 COVID-19 PFIZER VACCINE Unknown Completed [facility] TDAP Unknown Completed [facility] SARS-COV-2 COVID-19 PFIZER VACCINE Unknown Completed [facility] SARS-COV-2 COVID-19 PFIZER VACCINE Unknown Completed [facility] SARS-COV-2 COVID-19 PFIZER VACCINE Unknown Completed [facility] TDAP Unknown Completed [facility] SARS-COV-2 COVID-19 PFIZER VACCINE Unknown Completed [facility] SARS-COV-2 COVID-19 PFIZER VACCINE Unknown Completed [facility] SARS-COV-2 COVID-19 PFIZER VACCINE Unknown Completed [facility] TDAP Unknown Completed [facility] SARS-COV-2 COVID-19 PFIZER VACCINE Unknown Completed [facility] SARS-COV-2 COVID-19 PFIZER VACCINE Unknown Completed [facility] SARS-COV-2 COVID-19 PFIZER VACCINE Unknown Completed [facility] TDAP Unknown Completed [facility] SARS-COV-2 COVID-19 PFIZER VACCINE Unknown Completed [facility] SARS-COV-2 COVID-19 PFIZER VACCINE Unknown Completed [facility] SARS-COV-2 COVID-19 PFIZER VACCINE Unknown Completed [facility] TDAP Unknown Completed [facility] SARS-COV-2 COVID-19 PFIZER VACCINE Unknown Completed [facility] SARS-COV-2 COVID-19 PFIZER VACCINE Unknown Completed [facility] SARS-COV-2 COVID-19 PFIZER VACCINE Unknown Completed [facility] TDAP Unknown Completed [facility] SARS-COV-2 COVID-19 PFIZER VACCINE Unknown Completed [facility] SARS-COV-2 COVID-19 PFIZER VACCINE Unknown Completed [facility] SARS-COV-2 COVID-19 PFIZER VACCINE Unknown Completed [facility] TDAP Unknown Completed [facility] SARS-COV-2 COVID-19 PFIZER VACCINE Unknown Completed [facility] SARS-COV-2 COVID-19 PFIZER VACCINE Unknown Completed [facility] SARS-COV-2 COVID-19 PFIZER VACCINE Unknown Completed [facility] TDAP Unknown Completed [facility] SARS-COV-2 COVID-19 PFIZER VACCINE Unknown Completed [facility] SARS-COV-2 COVID-19 PFIZER VACCINE Unknown Completed [facility] SARS-COV-2 COVID-19 PFIZER VACCINE Unknown Completed [facility] TDAP Unknown Completed [facility] SARS-COV-2 COVID-19 PFIZER VACCINE Unknown Completed [facility] SARS-COV-2 COVID-19 PFIZER VACCINE Unknown Completed [facility] SARS-COV-2 COVID-19 PFIZER VACCINE Unknown Completed [facility] TDAP Unknown Completed [facility] SARS-COV-2 COVID-19 PFIZER VACCINE Unknown Completed [facility] SARS-COV-2 COVID-19 PFIZER VACCINE Unknown Completed [facility] SARS-COV-2 COVID-19 PFIZER VACCINE Unknown Completed [facility] TDAP Unknown Completed [facility] SARS-COV-2 COVID-19 PFIZER VACCINE Unknown Completed [facility] SARS-COV-2 COVID-19 PFIZER VACCINE Unknown Completed [facility] SARS-COV-2 COVID-19 PFIZER VACCINE Unknown Completed [facility] TDAP Unknown Completed [facility] SARS-COV-2 COVID-19 PFIZER VACCINE Unknown Completed [facility] SARS-COV-2 COVID-19 PFIZER VACCINE Unknown Completed [facility] SARS-COV-2 COVID-19 PFIZER VACCINE Unknown Completed [facility] TDAP Unknown Completed [facility] SARS-COV-2 COVID-19 PFIZER VACCINE Unknown Completed [facility] SARS-COV-2 COVID-19 PFIZER VACCINE Unknown Completed [facility] SARS-COV-2 COVID-19 PFIZER VACCINE Unknown Completed [facility] TDAP Unknown Completed [facility] SARS-COV-2 COVID-19 PFIZER VACCINE Unknown Completed [facility] SARS-COV-2 COVID-19 PFIZER VACCINE Unknown Completed [facility] SARS-COV-2 COVID-19 PFIZER VACCINE Unknown Completed [facility] TDAP Unknown Completed [facility] SARS-COV-2 COVID-19 PFIZER VACCINE Unknown Completed [facility] SARS-COV-2 COVID-19 PFIZER VACCINE Unknown Completed [facility] SARS-COV-2 COVID-19 PFIZER VACCINE Unknown Completed [facility] TDAP Unknown Completed [facility] SARS-COV-2 COVID-19 PFIZER VACCINE Unknown Completed [facility] SARS-COV-2 COVID-19 PFIZER VACCINE Unknown Completed [facility] SARS-COV-2 COVID-19 PFIZER VACCINE Unknown Completed [facility] TDAP Unknown Completed [facility] SARS-COV-2 COVID-19 PFIZER VACCINE Unknown Completed [facility] SARS-COV-2 COVID-19 PFIZER VACCINE Unknown Completed [facility] SARS-COV-2 COVID-19 PFIZER VACCINE Unknown Completed [facility] TDAP Unknown Completed [facility] SARS-COV-2 COVID-19 PFIZER VACCINE Unknown Completed [facility] SARS-COV-2 COVID-19 PFIZER VACCINE Unknown Completed [facility] SARS-COV-2 COVID-19 PFIZER VACCINE Unknown Completed [facility] TDAP Unknown Completed [facility] SARS-COV-2 COVID-19 PFIZER VACCINE Unknown Completed [facility] SARS-COV-2 COVID-19 PFIZER VACCINE Unknown Completed [facility] SARS-COV-2 COVID-19 PFIZER VACCINE Unknown Completed [facility] TDAP Unknown Completed [facility] SARS-COV-2 COVID-19 PFIZER VACCINE Unknown Completed [facility] SARS-COV-2 COVID-19 PFIZER VACCINE Unknown Completed [facility] SARS-COV-2 COVID-19 PFIZER VACCINE Unknown Completed [facility] TDAP Unknown Completed [facility] SARS-COV-2 COVID-19 PFIZER VACCINE Unknown Completed [facility] SARS-COV-2 COVID-19 PFIZER VACCINE Unknown Completed [facility] SARS-COV-2 COVID-19 PFIZER VACCINE Unknown Completed [facility] TDAP Unknown Completed [facility] SARS-COV-2 COVID-19 PFIZER VACCINE Unknown Completed [facility] SARS-COV-2 COVID-19 PFIZER VACCINE Unknown Completed [facility] SARS-COV-2 COVID-19 PFIZER VACCINE Unknown Completed [facility] TDAP Unknown Completed [facility] SARS-COV-2 COVID-19 PFIZER VACCINE Unknown Completed [facility] SARS-COV-2 COVID-19 PFIZER VACCINE Unknown Completed [facility] SARS-COV-2 COVID-19 PFIZER VACCINE Unknown Completed [facility] TDAP Unknown Completed [facility] SARS-COV-2 COVID-19 PFIZER VACCINE Unknown Completed [facility] SARS-COV-2 COVID-19 PFIZER VACCINE Unknown Completed [facility] SARS-COV-2 COVID-19 PFIZER VACCINE Unknown Completed [facility] TDAP Unknown Completed [facility] SARS-COV-2 COVID-19 PFIZER VACCINE Unknown Completed [facility] SARS-COV-2 COVID-19 PFIZER VACCINE Unknown Completed [facility] SARS-COV-2 COVID-19 PFIZER VACCINE Unknown Completed [facility] TDAP Unknown Completed [facility] SARS-COV-2 COVID-19 PFIZER VACCINE Unknown Completed [facility] SARS-COV-2 COVID-19 PFIZER VACCINE Unknown Completed [facility] SARS-COV-2 COVID-19 PFIZER VACCINE Unknown Completed [facility] TDAP Unknown Completed [facility] SARS-COV-2 COVID-19 PFIZER VACCINE Unknown Completed [facility] SARS-COV-2 COVID-19 PFIZER VACCINE Unknown Completed [facility] SARS-COV-2 COVID-19 PFIZER VACCINE Unknown Completed [facility] TDAP Unknown Completed [facility] SARS-COV-2 COVID-19 PFIZER VACCINE Unknown Completed [facility] SARS-COV-2 COVID-19 PFIZER VACCINE Unknown Completed [facility] SARS-COV-2 COVID-19 PFIZER VACCINE Unknown Completed [facility] TDAP Unknown Completed [facility] SARS-COV-2 COVID-19 PFIZER VACCINE Unknown Completed [facility] SARS-COV-2 COVID-19 PFIZER VACCINE Unknown Completed [facility] SARS-COV-2 COVID-19 PFIZER VACCINE Unknown Completed [facility] TDAP Unknown Completed [facility] SARS-COV-2 COVID-19 PFIZER VACCINE Unknown Completed [facility] SARS-COV-2 COVID-19 PFIZER VACCINE Unknown Completed [facility] SARS-COV-2 COVID-19 PFIZER VACCINE Unknown Completed [facility] TDAP Unknown Completed [facility] SARS-COV-2 COVID-19 PFIZER VACCINE Unknown Completed [facility] SARS-COV-2 COVID-19 PFIZER VACCINE Unknown Completed [facility] SARS-COV-2 COVID-19 PFIZER VACCINE Unknown Completed [facility] TDAP Unknown Completed [facility] SARS-COV-2 COVID-19 PFIZER VACCINE Unknown Completed [facility] SARS-COV-2 COVID-19 PFIZER VACCINE Unknown Completed [facility] SARS-COV-2 COVID-19 PFIZER VACCINE Unknown Completed [facility] TDAP Unknown Completed [facility] SARS-COV-2 COVID-19 PFIZER VACCINE Unknown Completed [facility] SARS-COV-2 COVID-19 PFIZER VACCINE Unknown Completed [facility] SARS-COV-2 COVID-19 PFIZER VACCINE Unknown Completed [facility] TDAP Unknown Completed [facility] SARS-COV-2 COVID-19 PFIZER VACCINE Unknown Completed [facility] SARS-COV-2 COVID-19 PFIZER VACCINE Unknown Completed [facility] SARS-COV-2 COVID-19 PFIZER VACCINE Unknown Completed [facility] TDAP Unknown Completed [facility] SARS-COV-2 COVID-19 PFIZER VACCINE Unknown Completed [facility] SARS-COV-2 COVID-19 PFIZER VACCINE Unknown Completed [facility] SARS-COV-2 COVID-19 PFIZER VACCINE Unknown Completed [facility] TDAP Unknown Completed [facility] SARS-COV-2 COVID-19 PFIZER VACCINE Unknown Completed [facility] SARS-COV-2 COVID-19 PFIZER VACCINE Unknown Completed [facility] SARS-COV-2 COVID-19 PFIZER VACCINE Unknown Completed [facility] TDAP Unknown Completed [facility] SARS-COV-2 COVID-19 PFIZER VACCINE Unknown Completed [facility] SARS-COV-2 COVID-19 PFIZER VACCINE Unknown Completed [facility] SARS-COV-2 COVID-19 PFIZER VACCINE Unknown Completed [facility] TDAP Unknown Completed [facility] SARS-COV-2 COVID-19 PFIZER VACCINE Unknown Completed [facility] Vital Signs Vital Name Observation Time Observation Value Comments S ource Systolic blood pressure 2024-02-14 14:33:00 125 mm[Hg] [facility] Diastolic blood pressure 2024-02-14 14:33:00 81 mm[Hg] [facility] Heart rate 2024-02-14 14:33:00 66 /min [facility] Body temperature 2024-02-14 14:33:00 35.89 Patience [facility] Respiratory rate 2024-02-14 14:33:00 18 /min [facility] Body height 2024-02-14 14:33:00 182.9 cm [facility] Body weight 2024-02-14 14:33:00 89.994 kg [facility] BMI 2024-02-14 14:33:00 26.91 kg/m2 [facility] Oxygen saturation in Arterial blood by Pulse oximetry 2024-02-14 14:33:00 98 /min [facility] Systolic blood pressure 2024-01-24 13:06:00 125 mm[Hg] [facility] Diastolic blood pressure 2024-01-24 13:06:00 77 mm[Hg] [facility] Heart rate 2024-01-24 13:06:00 77 /min [facility] Respiratory rate 2024-01-24 13:06:00 18 /min [facility] Body height 2024-01-24 13:06:00 182[facility]9 [facility] 2024-01-24 13:06:00 91.173 kg [facility] BMI 2024-01-24 13:06:00 27.26 kg[facility] Oxygen saturation in Arterial blood by Pulse oximetry 2024-01-24 13:06:00 95 /min [facility] Systolic blood pressure 2024-01-14 21:00:00 122 mm[Hg] [facility] Diastolic blood pressure 2024-01-14 21:00:00 75 mm[Hg] [facility] Heart rate 2024-01-14 21:00:00 69 /min [facility] Body height 2024-01-14 21:00:00 182.9 cm [facility] Body weight 2024-01-14 21:00:00 95.119 kg [facility] BMI 2024-01-14 21:00:00 28.44 kg/m2 [facility] Oxygen saturation in Arterial blood by Pulse oximetry 2024-01-14 21:00:00 97 /min [facility] Systolic blood pressure 2023-12-24 19:53:00 128 mm[Hg] [facility] Diastolic blood pressure 2023-12-24 19:53:00 77 mm[Hg] [facility] Heart rate 2023-12-24 19:53:00 71 /min [facility] Respiratory rate 2023-12-24 19:53:00 20 /min [facility] Body height 2023-12-24 19:53:00 182.9 cm [facility] 2023-12-24 19:53:00 92.987 kg [facility] BMI 2023-12-24 19:53:00 27.80 kg/m2 [facility] Oxygen saturation in Arterial blood by Pulse oximetry 2023-12-24 19:53:00 94 /min [facility] Systolic blood pressure 2023-12-14 21:00:00 102 mm[Hg] [facility] Diastolic blood pressure 2023-12-14 21:00:00 57 mm[Hg] [facility] Heart rate 2023-12-14 21:00:00 90 /min [facility] Body temperature 2023-12-14 21:00:00 35.94 Patience [facility] Respiratory rate 2023-12-14 21:00:00 20 /min [facility] Oxygen saturation in Arterial blood by Pulse oximetry 2023-12-14 21:00:00 94 /min [facility] Body height 2023-12-14 18:26:00 182.9 cm [facility] Body weight 2023-12-14 18:26:00 89.359 kg [facility] BMI 2023-12-14 18:26:00 26.72 kg/m2 [facility] Systolic blood pressure 2023-12-14 14:25:00 105 mm[Hg] [facility] Diastolic blood pressure 2023-12-14 14:25:00 81 mm[Hg] [facility] Heart rate 2023-12-14 14:25:00 55 /min [facility] Respiratory rate 2023-12-14 14:25:00 14 /min [facility] Oxygen saturation in Arterial blood by Pulse oximetry 2023-12-14 14:25:00 93 /min [facility] Body temperature 2023-12-14 13:35:00 36.39 Patience [facility] Body weight 2023-11-27 18:00:00 89.359 kg [facility] BMI 2023-11-27 18:00:00 26.72 kg/m2 [facility] Systolic blood pressure 2023-12-14 11:39:00 121 mm[Hg] [facility] Diastolic blood pressure 2023-12-14 11:39:00 84 mm[Hg] [facility] Heart rate 2023-12-14 11:39:00 65 /min [facility] Body temperature 2023-12-14 11:39:00 36.78 Patience [facility] Respiratory rate 2023-12-14 11:39:00 15 /min [facility] Oxygen saturation in Arterial blood by Pulse oximetry 2023-12-14 11:39:00 96 /min [facility] Body weight 2023-11-27 18:00:00 89.359 kg [facility] BMI 2023-11-27 18:00:00 26.72 kg/m2 [facility] Systolic blood pressure 2023-11-23 20:03:00 121 mm[Hg] [facility] Diastolic blood pressure 2023-11-23 20:03:00 85 mm[Hg] [facility] Heart rate 2023-11-23 20:03:00 72 /min [facility] Body height 2023-11-23 20:03:00 182.9 cm [facility] Body weight 2023-11-23 20:03:00 90.493 kg [facility] BMI 2023-11-23 20:03:00 27.06 kg/m2 [facility] Oxygen saturation in Arterial blood by Pulse oximetry 2023-11-23 20:03:00 95 /min [facility] Systolic blood pressure 2023-11-15 14:07:00 115 mm[Hg] [facility] Diastolic blood pressure 2023-11-15 14:07:00 78 mm[Hg] [facility] Heart rate 2023-11-15 14:07:00 72 /min [facility] Respiratory rate 2023-11-15 14:07:00 18 /min [facility] Body height 2023-11-15 14:07:00 182.9 cm [facility] Body weight 2023-11-15 14:07:00 88.905 kg [facility] BMI 2023-11-15 14:07:00 26.58 kg/m2 [facility] Oxygen saturation in Arterial blood by Pulse oximetry 2023-11-15 14:07:00 97 /min [facility] Systolic blood pressure 2023-10-25 18:24:00 113 mm[Hg] [facility] Diastolic blood pressure 2023-10-25 18:24:00 74 mm[Hg] [facility] Heart rate 2023-10-25 18:24:00 74 /min [facility] Body temperature 2023-10-25 18:24:00 36.28 Patience [facility] Respiratory rate 2023-10-25 18:24:00 16 /min [facility] Body height 2023-10-25 18:24:00 182.9 cm [facility] Body weight 2023-10-25 18:24:00 90.674 kg [facility] BMI 2023-10-25 18:24:00 27.11 kg/m2 [facility] Oxygen saturation in Arterial blood by Pulse oximetry 2023-10-25 18:24:00 98 /min [facility] Systolic blood pressure 2023-09-28 17:59:00 114 mm[Hg] [facility] Diastolic blood pressure 2023-09-28 17:59:00 70 mm[Hg] [facility] Heart rate 2023-09-28 17:59:00 79 /min [facility] Body temperature 2023-09-28 17:59:00 36.78 Patience [facility] Body height 2023-09-28 17:59:00 182.9 cm [facility] Body weight 2023-09-28 17:59:00 90.719 kg [facility] BMI 2023-09-28 17:59:00 27.12 kg/m2 [facility] Oxygen saturation in Arterial blood by Pulse oximetry 2023-09-28 17:59:00 96 /min [facility] Systolic blood pressure 2023-07-13 20:51:00 129 mm[Hg] [facility] Diastolic blood pressure 2023-07-13 20:51:00 78 mm[Hg] [facility] Heart rate 2023-07-13 20:51:00 58 /min [facility] Body height 2023-07-13 20:51:00 182.9 cm [facility] Body weight 2023-07-13 20:51:00 96.752 kg [facility] BMI 2023-07-13 20:51:00 28.93 kg[facility]m2 [facility] Oxygen saturation in Arterial blood by Pulse oximetry 2023-07-13 20:51:00 98 /min [facility] Systolic blood pressure 2023-03-28 18:51:00 132 mm[Hg] [facility] Diastolic blood pressure 2023-03-28 18:51:00 80 mm[Hg] [facility] Heart rate 2023-03-28 18:51:00 81 /min [facility] 2023-03-28 18:51:00 182.9 cm [facility] Body weight 2023-03-28 18:51:00 95.165 kg [facility] BMI 2023-03-28 18:51:00 28.45 kg/m2 [facility] Oxygen saturation in Arterial blood by Pulse oximetry 2023-03-28 18:51:00 96 /min [facility] Systolic blood pressure 2023-03-09 20:39:00 129 mm[Hg] [facility] Diastolic blood pressure 2023-03-09 20:39:00 80 mm[Hg] [facility] Heart rate 2023-03-09 20:39:00 80 /min [facility] Respiratory rate 2023-03-09 20:39:00 18 /min [facility] Body height 2023-03-09 20:39:00 182.9 cm [facility] Body weight 2023-03-09 20:39:00 93.804 kg [facility] BMI 2023-03-09 20:39:00 28.05 kg/m2 [facility] Oxygen saturation in Arterial blood by Pulse oximetry 2023-03-09 20:39:00 95 /min [facility] Systolic blood pressure 2023-01-05 20:25:00 135 mm[Hg] [facility] Diastolic blood pressure 2023-01-05 20:25:00 80 mm[Hg] [facility] Heart rate 2023-01-05 20:24:00 66 /min [facility] Body height 2023-01-05 20:24:00 182.9 cm [facility] 2023-01-05 20:24:00 93.396 [facility] BMI 2023-01-05 20:24:00 27.93 kg/m2 [facility] Oxygen saturation in Arterial blood by Pulse oximetry 2023-01-05 20:24:00 98 /min [facility] Systolic blood pressure 2022-12-25 20:10:00 131 mm[Hg] [facility] Diastolic blood pressure 2022-12-25 20:10:00 85 mm[Hg] [facility] Heart rate 2022-12-25 20:10:00 79 /min [facility] Respiratory rate 2022-12-25 20:10:00 18 /min [facility] Body height 2022-12-25 20:10:00 182.9 cm [facility] Body weight 2022-12-25 20:10:00 93.486 kg [facility] BMI 2022-12-25 20:10:00 27.95 kg/m2 [facility] Oxygen saturation in Arterial blood by Pulse oximetry 2022-12-25 20:10:00 97 /min [facility] Systolic blood pressure 2022-11-13 13:52:00 158 mm[Hg] [facility] Diastolic blood pressure 2022-11-13 13:52:00 93 mm[Hg] [facility] Heart rate 2022-11-13 13:52:00 81 /min [facility] Respiratory rate 2022-11-13 13:52:00 18 /min [facility] Body height 2022-11-13 13:52:00 182.9 cm [facility] 2022-11-13 13:52:00 90.402 kg Univ [facility] BMI 2022-11-13 13:52:00 27.03 kg/m2 [facility] saturation in Arterial blood by Pulse oximetry 2022-11-13 13:52:00 98 /min [facility] Procedures Procedure Date / Time Performed Performing Clinician Source XR CHEST 2 VW 2023-12-24 20:55:40 Taylor Caruso [facility] CT ABDOMEN PELVIS W CONTRAST 2023-12-14 19:53:17 Taylor Caruso [facility] CT ESOPHAGOGRAPHY 2023-12-14 19:53:17 Taylor Caruso [facility] COMP. METABOLIC PANEL (01059) 2023-12-14 19:00:00 Le Escobedo [facility] CBC WITH DIFF 2023-12-14 19:00:00 Le Escobedo [facility] XR CHEST 1 VW 2023-12-14 18:42:14 Le Escobedo [facility] COLONOSCOPY (ENDO) 2023-12-14 13:43:12 Felice Lasha [facility] COLONOSCOPY (ENDO) 2023-12-14 13:43:12 Felice [facility] EGD (ENDO) 2023-12-14 13:38:54 Felice [facility] EGD (ENDO) 2023-12-14 13:38:54 Felice [facility] COLONOSCOPY 2023-12-14 12:19:00 Juliette [facility] ESOPHAGOGASTRODUODENOSCOPY 2023-12-14 12:19:00 Juliette [facility] POCT GLUCOSE (AUTOMATED) 2023-12-14 11:45:00 Juliette [facility] POCT GLUCOSE (AUTOMATED) 2023-12-14 11:45:00 Juliette [facility] POCT HEMOGLOBIN A1C TEST 2023-11-23 20:05:00 Maria A Mills [facility] POCT HEMOGLOBIN A1C TEST 2023-07-13 20:52:00 Bogdan Fernandez [facility] PATIENT QUESTIONNAIRE 2023-07-13 06:01:00 Doctor Unassigned, Gillham [facility] POCT HEMOGLOBIN A1C TEST 2023-03-09 20:46:00 Bogdan Fernandez [facility] CONSENT/REFUSAL FOR DIAGNOSI S AND TREATMENT 2023-03-09 20:04:43 Doctor Unassigned, Gillham [facility] PATIENT QUESTIONNAIRE 2023-01-05 05:01:00 Doctor Unassigned, Gillham [facility] PATIENT FINANCIAL POLICY 2022-11-13 13:29:57 Doctor Unassigned, Gillham [facility] INSURANCE CORRESPONDENCE 2022-02-11 05:01:00 Doctor Unassigned, Gillham [facility] Encounters Start Date/Time End Date/Time Encounter Type Admission Type Attending [facility] Care Department Encounter ID Source 2024-06-27 14:30:00 2024-06-27 14:30:00 Outpatient [facility] [id number] [facility] 2024-02-21 00:00:00 2024-02-21 09:03:01 Candido [facility] MED[facility] OFFICE BUILDING 1.2.840.114 350.1.13.10 4.2.7.2.686 [id number] [facility] 2024-02-16 00:00:00 2024-02-18 10:52:57 Candido [facility] MED[facility] OFFICE BUILDING 1.2.840.114 350.1.13.10 4.2.7.2.686 [id number] [facility] 2024-02-14 10:00:00 2024-02-14 10:30:00 Office Visit Kota Hassan Joseph Marc [facility] 1.2.840.114 350.1.13.10 4.2.7.2.686 [id number] [facility] 2024-02-14 10:00:00 2024-02-14 10:00:00 Outpatient CALEB [facility] [id number] [facility] 2024-02-14 09:45:00 2024-02-14 10:00:00 Sales Support Engineer Visit [facility] 1.2.840.114 350.1.13.10 4.2.7.2.686 [id number] [facility] 2024-02-13 00:00:00 2024-02-13 08:38:03 [facility] OFF[facility] BUILD[facility] 1.2.840.114 350.1.13.10 4.2.7.2.686 [id number] 044 [id number] [facility] 2024-02-01 00:00:00 2024-02-01 17:56:12 Refill [facility] MED[facility] OFF[facility] BU[facility] 1..840.114 350.1.13.10 4.2.7.2.686 [id number] [facility] 2024-01-24 08:00:00 2024-01-24 08:39:29 [id number] 2024-01-24 08:00:00 2024-01-24 08:39:29 Office Visit Juliette [facility] NAL BUILDING 1..840.114 350.1.13.10 4.2.7.2.686 [id number] [facility] 2024-01-14 16:00:00 2024-01-14 16:54:41 Outpatient R RICKY ELDA KLEY, [facility] [id number] [facility] 2024-01-14 16:00:00 2024-01-14 16:54:41 [facility] OFFICE BUILDING 1..840.114 350.1.13.10 4.2.7.2.686 [id number] 044 [id number] [facility] 2023-12-24 15:41:46 2023-12-24 23:59:00 Outpatient R EDWARD CONLEY [facility] [id number] [facility] 2023-12-24 15:41:46 2023-12-24 23:59:00 Hospital Encounter Edward Conley [facility] 1.2840.114 350.1.13.10 4.2.7.2.686 [id number] [facility] 2023-12-24 15:00:00 2023-12-24 15:20:30 Office Visit Juliette [facility] PROFESSIO NAL BUILDING 1.2840.114 350.1.13.10 4.2.7.2.686 [id number] [facility] 2023-11-19 00:00:00 2023-12-22 18:21:08 Patient Secure Msg Doctor Unassigned, Gillham [facility] 1.2840.114 350.1.13.10 4.2.7.2.686 [id number] [facility] 2023-12-20 10:00:00 2023-12-20 10:00:00 Outpatient R EDWARD CONLEY [facility] [id number] [facility] 2023-12-15 00:00:00 2023-12-15 10:46:36 Bogdan Oliver [facility] OFF[facility] BUILDING 1..840.114 350.1.13.10 4.2.7.2.686 [id number] [facility] 2023-12-14 13:22:00 2023-12-14 16:24:00 Emergency X LE ESCOBEDO [facility] ERT [id number] [facility] 2023-12-14 13:22:00 2023-12-14 16:24:00 Emergency Le Escobedo [facility] 1.2840.114 350.1.13.10 4.2.7.2.686 [id number] [facility] 2023-12-14 00:00:00 2023-12-14 13:11:39 [facility] 1.2.840.114 350.1.13.10 4.2.7.2.686 [id number] [facility] 2023-12-14 06:26:00 2023-12-14 09:42:00 [id number] [facility] 2023-12-14 06:26:00 2023-12-14 09:42:00 Hospital Encounter [facility] [place] 1.2.840.114 350.1.13.10 4.2.7.2.686 [id number] [facility] 2023-12-14 07:20:00 2023-12-14 08:33:00 [facility] [place] 1.2.840.114 350.1.13.10 4.2.7.2.686 [id number] [facility] 2023-11-23 15:00:00 2023-11-23 15:49:12 Office Visit Bogdan Fernandez [facility] OFF[facility] BU[facility] 1.2.840.114 350.1.13.10 4.2.7.2.686 [id number] [facility] 2023-11-23 15:00:00 2023-11-23 15:49:12 Outpatient R BOGDAN [facility]NDEZ [facility] [id number] [facility] 2023-11-15 09:30:00 2023-11-15 10:05:28 [facility] [id number] [facility] 2023-11-15 09:30:00 2023-11-15 10:05:28 Office Visit [facility] BUILDING 1.2.840.114 350.1.13.10 4.2.7.2.686 [id number] [facility] 2023-11-06 00:00:00 2023-11-06 16:03:02 Telephone Ziachristophe Selina Layelyn [facility] 1.2.840.114 350.1.13.10 4.2.7.2.686 [id number] [facility] 2023-10-25 13:30:00 2023-10-25 14:00:00 Office Visit Elif Villeda [facility] 1.0.114 350.1.13.10 4.2.7.2.686 [id number] [facility] 2023-10-25 13:30:00 2023-10-25 13:30:00 Outpatient R ELIF [facility]A [facility] [id number] [facility] 2023-10-23 00:00:00 2023-10-24 15:27:25 Refill Bogdan Fernandez [facility] MEDICAL OFFICE BUILDING 1.840.114 350.1.13.10 4.2.7.2.686 [id number] [facility] 2023-10-18 00:00:00 2023-10-18 17:00:58 Refill Emilie Patricio [facility] MEDICAL OFFICE BUILDING 1.2840.114 350.1.13.10 4.2.7.2.686 [id number] 044 [id number] [facility] 2023-10-08 00:00:00 2023-10-08 00:00:00 Refill Bogdan Fernandez [facility] MEDICAL OFFICE BUILDING 1.2840.114 350.1.13.10 4.2.7.2.686 [id number] [facility] 2023-09-29 00:00:00 2023-09-29 00:00:00 Refill Gray, [facility] OFF[facility] BUILD[facility] 1.2840.114 350.1.13.10 4.2.7.2.686 [id number] [id number] [facility] 2023-09-28 13:30:00 2023-09-28 13:45:00 Sales Support Engineer Visit Lab, Lupis Glaser Drea [facility] MED[facility] OFF[facility] BUILDING 1.840.114 350.1.13.10 4.2.7.2.686 [id number] [facility] 2023-09-28 13:00:00 2023-09-28 13:29:29 Outpatient LUPIS AL [facility] [id number] [facility] 2023-09-28 13:00:00 2023-09-28 13:29:29 Office Visit Lupis Valencia [facility] 1.840.114 350.1.13.10 4.2.7.2.686 [id number] [id number] [facility] 2023-09-28 00:00:00 2023-09-28 00:00:00 Refill Shanti Valenciapaloma Shepard [facility] 1.2840.114 350.1.13.10 4.2.7.2.686 [id number] [id number] [facility] 2023-08-30 14:15:00 2023-08-30 14:15:00 Outpatient R LASHA GRAY [facility] [id number] [facility] 2023-08-28 00:00:00 2023-08-28 00:00:00 Telephone Gray L[facility] OFF[facility] BUILD[facility] 1.2840.114 350.1.13.10 4.2.7.2.686 [id number] [facility] 2023-07-13 15:45:00 2023-07-13 15:45:00 Sales Support Engineer Visit Lab, Bob FernandezBogdan [facility] 1.840.114 350.1.13.10 4.2.7.2.686 [id number] [facility] 2023-07-13 15:00:00 2023-07-13 15:18:16 Outpatient R [facility]ALYANIIN [facility] [id number] [facility] 2023-07-13 15:00:00 2023-07-13 15:18:16 Office Visit FernandezBogdan [facility] OFF[facility]ILD[facility] 1.114 350.1.13.10 4.2.7.2.686 [id number] [facility] 2023-07-13 00:00:00 2023-07-13 00:00:00 Orders Only Doctor Unassigned, Gillham [facility] 1..114 350.1.13.10 4.2.7.2.686 [id number] [facility] 2023-05-17 00:00:00 2023-05-17 00:00:00 Refill Felice [facility] MEDICAL OFFICE BUILDING 1.114 350.1.13.10 4.2.7.2.686 [id number] [id number] [facility] 2023-05-06 00:00:00 2023-05-06 00:00:00 Refill Felice [facility] MEDICAL OFFICE BUILDING 1.114 350.1.13.10 4.2.7.2.686 [id number] [facility] 2023-03-28 14:00:00 2023-03-28 14:00:16 Outpatient R LASHA GRAY [facility] [id number] [facility] 2023-03-28 14:00:00 2023-03-28 14:00:16 Office Visit Lasha Gray [facility] MEDICAL OFFICE BUILDING 1..840.114 350.1.13.10 4.2.7.2.686 [id number] [facility] 2023-03-09 15:30:00 2023-03-09 16:04:20 Outpatient R BOGDAN [facility]NDEZ [facility] [id number] [facility] 2023-03-09 15:30:00 2023-03-09 16:04:20 Office Visit Bogdan Fernandez [facility] OFF[facility] BUILD[facility] 1..840.114 350.1.13.10 4.2.7.2.686 [id number] [facility] 2023-03-09 00:00:00 2023-03-09 00:00:00 Orders Only Doctor Unassigned, Gillham [facility] 1..840.114 350.1.13.10 4.2.7.2.686 [id number] [facility] 2023-01-05 16:15:00 2023-01-05 16:30:00 Sales Support Engineer Visit Lab, Bogdan Polo [facility] OFF[facility] BUILDING 1..840.114 350.1.13.10 4.2.7.2.686 [id number] [facility] 2023-01-05 15:30:00 2023-01-05 16:05:47 Outpatient R BOGDAN [facility]NDEZ [facility] [id number] [facility] 2023-01-05 15:30:00 2023-01-05 16:05:47 Office Visit Bogdan Fernandez [facility] OFF[facility] 1.2.840.114 350.1.13.10 4.2.7.2.686 [id number] [facility] 2023-01-05 00:00:00 2023-01-05 00:00:00 Orders Only Doctor Unassigned, Gillham [facility] 1.2840.114 350.1.13.10 4.2.7.2.686 [id number] [facility] 2022-12-25 15:15:00 2022-12-25 15:32:53 Outpatient LASHA SHE[facility]TON [facility] [id number] [facility] 2022-12-25 15:15:00 2022-12-25 15:30:00 Office Visit Felice [facility] MEDICAL OFFICE BUILD[facility] 1..840.114 350.1.13.10 4.2.7.2.686 [id number] [facility] 2022-12-20 00:00:00 2022-12-20 00:00:00 Refill Felice [facility] [place] MEDICAL OFFICE BUILDING 1.2.840.114 350.1.13.10 4.2.7.2.686 [id number] [facility] 2022-12-15 00:00:00 2022-12-15 00:00:00 Refill Felice [facility] [place]?[facility] MEDICAL OFFICE BUILDING 1..840.114 350.1.13.10 4.2.7.2.686 [id number] [facility] 2022-11-14 07:30:00 2022-11-14 07:30:00 Outpatient LASHA [facility]TON [facility] [id number] [facility] 2022-11-14 07:30:00 2022-11-14 07:30:00 Sales Support Engineer Visit Lab, Bob - Pancho Felice [facility] [place]?[facility] MEDICAL OFFICE BUILDING 1.840114 350.1.13.10 4.2.7.2.686 [id number] [facility] 2022-11-13 09:00:00 2022-11-13 09:21:35 Outpatient R FELICE [facility] [id number] [facility] 2022-11-13 09:00:00 2022-11-13 09:21:35 [facility] 1.2840114 350.1.13.10 4.2.7.2.686 [id number] [id number] [facility] 2022-11-13 00:00:00 2022-11-13 00:00:00 Orders Only Doctor Unassigned, Gillham [facility] 1.0.114 350.1.13.10 4.2.7.2.686 [id number] [facility] 2022-11-07 00:00:00 2022-11-07 00:00:00 Telephone Destinee Ghulam Briones [facility] MEDICAL OFFICE BUILDING 1.0114 350.1.13.10 4.2.7.2.686 [id number] 044 [id number] [facility] 2022-02-14 00:00:00 2022-02-14 00:00:00 Telephone Felice [facility] MEDICAL OFFICE BUILDING 1.114 350.1.13.10 4.2.7.2.686 [id number] [facility] 2022-02-11 00:00:00 2022-02-11 00:00:00 Orders Only Doctor Unassigned, Gillham [facility] 1.20.114 350.1.13.10 4.2.7.2.686 [id number] [facility] 2022-02-08 13:00:00 2022-02-08 13:15:00 Office Visit Felice Lasha LouisLupis [facility] MEDICAL OFFICE BUILDING 1.2840.114 350.1.13.10 4.2.7.2.686 [id number] [id number] [facility] 2022-02-08 13:00:00 2022-02-08 13:00:00 Outpatient R JAMIA VALENCIALIE [facility] [id number] [facility] 2022-02-08 13:00:00 2022-02-08 12:47:51 Outpatient LUPIS AL [facility] [id number] [facility] 2022-02-08 00:00:00 2022-02-08 00:00:00 Telephone GrayLasha [facility] MEDICAL OFFICE BUILDING 1.84.114 350.1.13.10 4.2.7.2.686 [id number] [facility] 2022-02-07 00:00:00 2022-02-07 00:00:00 Refill Felice Lasha [facility] MEDICAL OFFICE BUILDING 1.84114 350.1.13.10 4.2.7.2.686 [id number] [id number] [facility] 2022-01-02 00:00:00 2022-01-02 00:00:00 Orders Only Doctor Unassigned, Gillham [facility] 1.0.114 350.1.13.10 4.2.7.2.686 [id number] [facility] 2021-12-16 00:00:00 2021-12-16 00:00:00 Orders Only Doctor Unassigned, Gillham [facility] 1.20.114 350.1.13.10 4.2.7.2.686 [id number] [id number] [facility] 2021-08-31 00:00:00 2021-08-31 00:00:00 Refill Felice [facility]?[facility] OFF[facility]ILD[facility] 1.0.114 350.1.13.10 4.2.7.2.686 [id number] 044 [id number] [facility] 2020-10-06 00:00:00 2020-10-06 00:00:00 Telephone Felice [facility] Office [facility] 1..114 350.1.13.10 4.2.7.2.686 [id number] 044 [id number] [facility] 2020-10-04 13:51:51 2020-10-04 15:19:55 Office Visit Lasha Gray [facility] Office [facility] 1.114 350.1.13.10 4.2.7.2.686 [id number] 044 [id number] [facility] 2020-10-04 14:48:58 2020-10-04 15:08:58 Sales Support Engineer Visit Lab, [facility] I Felice [facility] 1.114 350.1.13.10 4.2.7.2.686 [id number] 044 [id number] [facility] 2020-10-04 14:15:00 2020-10-04 14:15:00 Outpatient R FELICE [facility] [id number] [facility] 2020-10-04 00:00:00 2020-10-04 00:00:00 Orders Only Doctor Unassigned, Gillham [facility] 1..114 350.1.13.10 4.2.7.2.686 [id number] [facility] 2020-09-17 08:10:00 2020-09-17 08:10:00 Outpatient [facility] [id number] [facility] 2020-08-27 08:10:00 2020-08-27 08:10:00 Outpatient [facility] [id number] [facility] 2020-08-24 00:00:00 2020-08-24 00:00:00 Telephone Lasha Gray [facility] Office Building One .114 350.1.13.10 4.2.7.2.686 [id number] 044 [id number] [facility] 2020-04-01 00:00:00 2020-04-01 00:00:00 Telephone Lupis Valencia [facility] Office [facility] 1.114 350.1.13.10 4.2.7.2.686 [id number] 044 [id number] [facility] 2020-03-31 16:27:59 2020-03-31 16:47:59 Laboratory Only Lab, Adc Fam Pob Stephon Ponce Dandy [facility] Office Building One .114 350.1.13.10 4.2.7.2.686 [id number] 044 [id number] [facility] 2020-03-31 16:40:00 2020-03-31 16:40:00 Outpatient R [facility] [id number] [facility] 2020-03-31 00:00:00 2020-03-31 00:00:00 Letter (Out) Doctor Unassigned, Gillham [facility] .114 350.1.13.10 4.2.7.2.686 [id number] [id number] [facility] 2020-03-31 00:00:00 2020-03-31 00:00:00 Letter (Out) Doctor Unassigned, Gillham [facility] 1.0.114 350.1.13.10 4.2.7.2.686 [id number] [facility] Results Test Description Test Time Test Comments Results Result Comments Source CT ESOPHAGOGRAPHY 2023-12 20:21:1 0 HISTORY: Possible esophageal perforation after EGD. TECHNIQUE: Initially noncontrast enhanced CT chest was completed.Subsequently Contrast-enhanced 64-mutidetector CT scan of the chest wascompleted with oral administration of water-soluble contrast medium as wellas intravenous injection of ?non ionic contrast medium. Subsequentlynumerous sagittal, coronal and MIP reformations were generated. FINDINGS: Hiatal hernia noted with air in the entire thoracic esophagus,likely due to reflux. Small amount of contrast medium is seen outlining themucosal lining of the upper thoracic esophagus. However, There is noevidence of leakage of orally administered contrast medium. No pneumothorax or pneumomediastinum. No pleural effusion or pericardialeffusion. Trachea and central bronchial airways appear normal. Atherosclerosis in the right coronary artery and minimal in the LAD,proximal LCx coronary artery noted. Patchy areas of irregular consolidation noted involving portions of leftupper lobe, more affecting the posterior segment, portions of the lingula,more affecting the lateral segment, small portions of left lower lung. Nopleural effusion. Minimal linear areas of fibrosis and congestion noted in the right lowerlung. 3 mm pleural-based nodule in the posterior right mid chest (9:100 ) 6 mmpleural-based nodule in the right lateral lower chest (9:164), 5 mmpleural-based nodule lateral left lower chest (9:166), 2 mm pleural-basednodule anterior left upper chest (9:50), 2 mm nodule anterior right upperchest (9:78) noted. CONCLUSIONS:1. Small hiatal hernia with probable gastroesophageal reflux. No CTfindings of esophageal perforation. No pneumothorax or pneumomediastinum.2. Abnormal findings involving portions of left upper lobe, left lingulaand left lower lung, likely multifocal pneumonias. Some of the findings inthe lingula segment and medial right lower lobe could be chronic fibrosingpneumonia. No pleural effusion.3. Pleural-based nodules in both lungs, of unknown etiology at this time.Monitoring suggested by low-dose noncontrast CT chest in 6 months. [facility] CT ABDOMEN PELVIS W CONTRAST 2024-07 -05 20:05:[address] Abdomen and Pelvis with intravenous contrast. CLINICAL HISTORY: Abdominal pain. Postop. DOSE: Up-to-date CT equipment and radiation dose reduction techniques wereemployed. CTDIvol: 7.78+7.49 MGy. DLP: 4.14+336+571 mGy-cm. TECHNIQUE : Contiguous axial imaging from the level of the lung basesthrough the pubic symphysis were performed after the uncomplicatedadministration of nonionic contrast material. ?Coronal and sagittalreconstructions were obtained. Auto mA and/or iterative reconstruction wereused to reduce radiation dose. FINDINGS: ? Lower lungs: Abnormal findings are seen involving portions of lingula andleft lower lung which could be multifocal pneumonias. Pleural-based 6 mmnodule noted in the right posterior lower lung. No pleural effusion orpericardial effusion. Contrast medium is seen in small hiatal hernia. Liver, Gallbladder and Spleen: The liver is 15.2 cm and showed mild fattyinfiltration. Spleen is enlarged, 14.8 x 5.2 cm and adjacent to the mainspleen, 21 mm soft tissue nodule is seen, likely an accessory splenule.Gallbladder has been removed. Biliary ducts and the pancreatic duct appearof normal size. Peritoneum: ?No free air or free fluid. No lymphadenopathy. Pancreas and Adrenals: ?Unremarkable pancreas and adrenal glands. Kidneys and Ureters: ?No visible calculi in the renal collecting systems. No hydroureter or hydronephrosis. 9 mm hypodense lesion in the upper poleand is irregular shaped 11 mm hypodense lesion in the anterior interpolarcortex of the right kidney noted, could be a Bosniak type I or type IIcysts. No abnormal enhancement of the cortex detected. Vessels: Mild atherosclerosis of aorta and iliac arteries. Retroperitoneum: No abnormal fluid or lymphadenopathy. Bowel: ?Orally administered contrast medium noted in the hiatal hernia,gastric chamber and in the duodenum. Air-fluid levels are seen in some ofthe small bowel loops and right-sided large bowel consistent with ileus. Along but otherwise normal appendix is visualized. Bladder and Reproductive Organs: ?Enlarged prostate noted. No grosspathology in the unopacified urinary bladder. Bones: ?Exaggerated lumbosacral lordosis. No acute bony abnormalities. Soft tissues: Indirect type small fat-containing left inguinal herniasuspected. CONCLUSION:1. No acute findings in contrast enhanced CT scan of abdomen and pelvis.Air-fluid levels in some of the small bowel loops and right side of thelarge bowel noted, consistent with either ileus or post procedural finding.2. Mild hepatic steatosis. Splenomegaly. S/P cholecystectomy.3. 2 hypodense lesions in the right kidney could be Bosniak type II cysts.Monitoring of these 2 lesions requested either by ultrasound or by CT scanin 3-4 months.4. Contrast medium noted in hiatal hernia without any leakage.5. Abnormal findings involving portions of left lingula and left lowerlung. Etiology could be acute on chronic infection.6. Single pleural-based right lower lung nodule nodule. [facility] WITH [id number] 19:21:37* Test Item Value Reference Range Interpretation Comme nts WBC (test code = 6690-2) 7.57 4.20-10.70 RBC (test code = 789-8) 5.43 4.26-5.52 HGB (test code = 718-7) 12.5 g/dL 12.2-16.4 HCT (test code = 4544-3) 39.5 % 38.4-49.3 MCV (test code = 787-2) 72.7 fL 81.7-95.6 L MCH (test code = 785-6) 23.0 pg 26.1-32.7 L MCHC (test code = 786-4) 31.6 g/dL 31.2-35.0 RDW-SD (test code = 53138-5) 42.5 fL 38.5-51.6 RDW-CV (test code = 788-0) 16.3 % 12.1-15.4 H PLT (test code = 777-3) 220 150-328 MPV (test code = 25849-7) 12.3 fL 9.8-13.0 NRBC/100 WBC (test code = 9187446030) 0.0 0.0-10.0 NRBC x10^3 (test code = 6966795720) See_Comment [Automated App [employer]] The system which generated this result transmitted reference range: 10*3/?L. The reference range was not used to interpret this result as normal/abnormal. GRAN MAT (NEUT) % (test code = 770-8) 91.3 % IMM GRAN % (test code = 9104405807) 0.30 % LYMPH % (test code = 736-9) 5.4 % MONO % (test code = 5905-5) 1.6 % EOS % (test code = 713-8) 1.1 % BASO % (test code = 706-2) 0.3 % GRAN MAT x10^3(ANC) (test code = 6529968906) 6.92 10*3/uL 1.99-6.95 IMM GRAN x10^3 (test code = 4518109125) 0.00-0.06 LYMPH x10^3 (test code = 731-0) 0.41 10*3/uL 1.09-3.23 L MONO x10^3 (test code = 742-7) 0.12 10*3/uL 0.36-1.02 L EOS x10^3 (test code = 711-2) 0.08 10*3/uL 0.06-0.53 BASO x10^3 (test code = 704-7) 0.01-0.09 Lab Interpretation (test code = 61821-1) [facility] [id number] 18:44:33HISTORY: S/P colonoscopy. TECHNIQUE: Portable AP upright view of the chest is obtained. FINDINGS: No prior study available for comparison. Diffuse groundglass hazyincreased markings are seen involving portions of left lower lung,suspicious for aspiration pneumonia. Right lung is clear. No pneumothoraxor pleural effusion or pulmonary congestion detected. Cardiac size iswithin normal limits. CONCLUSIONS: Abnormal findings in left lower lung, suspicious foraspiration pneumonia. Please correlate with history and clinicalevaluation.[facility] GLUCOSE (AUTOMATED)2023-12-14 11:46:56* Test Item Value Reference Range Interpretation Comme nts POCT GLU (test code = 8921992883) 111 mg/dL 70-110 H Lab Interpretation (test cod e = 83280-2) Abnormal [facility] GLUCOSE (AUTOMATED)2023-12-14 11:46:56* Test Item Value Reference Range Interpretation Comme nts POCT GLU (test code = 8099603568) 111 mg/dL 70-110 H Lab Interpretation (test cod e = 59781-4) Abnormal [facility] Hemoglobin A1C [id number] 20:05:00* Test Item Value Reference Range Interpretation Comme nts POCT HBA1C (test code = 4548-4) 6.7 % 4-6 A Lab Interpretation (test cod e = 51232-2) Abnormal [facility] Hemoglobin A1C [id number] 20:52:00* Test Item Value Reference Range Interpretation Comme nts POCT HBA1C (test code = 4548-4) 7.5 % 4-6 A Lab Interpretation (test cod e = 71545-4) Abnormal [facility] Hemoglobin A1C [id number] 20:52:00* Test Item Value Reference Range Interpretation Comme nts POCT HBA1C (test code = 4548-4) 7.5 % 4-6 A Lab Interpretation (test cod e = 38838-0) Abnormal [facility] HEMOGLOBIN A1C [id number] 20:47:00* Test Item Value Reference Range Interpretation Comme nts POCT HBA1C (test code = 4548-4) 8.3 % 4-6 A Lab Interpretation (test cod e = 87049-3) Abnormal [facility] HEMOGLOBIN A1C [id number] 20:47:00* Test Item Value Reference Range Interpretation Comme nts POCT HBA1C (test code = 4548-4) 8.3 % 4-6 A Lab Interpretation (test cod e = 03340-2) Abnormal [facility] Consult Notes Date/Time Note Provider Source 2023-12-14 13:44:05 ACUTE CARE SURGERY CONSULT NOTE Date of Service: 12/14/2023 Chief Complaint/Reason for the consult: abdominal pain, fever after EGD/colonoscopy HPI We were asked to see this patient to give my opinion regarding Elaine Walker 48 year old male who presents due to fever tachycardia and shaking after arriving home after his EGD/colonoscopy this AM. Patient got home around 11AM and refers that he started with shaking and he was tachycardic on the 110s and reports at 101 fever. Denies nausea, vomit, diarrhea, denies blood in bm. On examination patient is in no acute distress, abdomen is soft, mildly tender LLQ and RUQ. CURRENT HOSPITAL MEDICATIONS Current Facility-Administered Medications Medication Dose Route Frequency Last Rate Last Admin acetaminophen (OFIRMEV) IV piggyback 1,000 mg 1,000 mg IV Piggyback ONCE 400 mL/hr at 12/14/23 1354 1,000 mg at 12/14/23 1354 Current Outpatient Medications Medication Sig Dispense Refill empagliflozin (JARDIANCE) 25 mg Tab tablet Take 1 tablet by mouth in the morning. 90 tablet 3 metFORMIN 500 mg tablet TAKE 1 TABLET BY MOUTH IN THE MORNING AND IN THE EVENING WITH MEALS (Patient taking differently: Take 2 tablets by mouth in the morning. TAKE 1 TABLET BY MOUTH IN THE MORNING AND IN THE EVENING WITH MEALS) 180 tablet 1 semaglutide (OZEMPIC) 0.25 mg or 0.5 mg (2 mg/3 mL) PnIj inject 0.5 mg under the skin weekly. DX E11.9 (Patient taking differently: inject 0.5 mg under the skin weekly. DX E11.9Sundays) 9 mL 1 pantoprazole 40 mg EC tablet Take 1 tablet by mouth in the morning and 1 tablet in the evening. Do all this for 180 days. 180 tablet 1 Fenofibrate 160 mg tablet TAKE 1 TABLET BY MOUTH IN THE MORNING 90 tablet 1 lisdexamfetamine 60 mg capsule Take 1 capsule by mouth every morning. (Patient taking differently: Take 1 capsule by mouth as needed.) 30 capsule 0 Alcohol Swabs PadM BD ULTRAFINE III MINI PEN 31 gauge x 3/16" Ndle MICRO THIN LANCETS 33 gauge Misc rosuvastatin 20 mg tablet Take 1 tablet by mouth in the morning. cetirizine (ZYRTEC) 10 mg tablet Take 1 tablet by mouth at bedtime as needed. Review of Systems (BOLDED if positive. Otherwise negative.) General: weight changes, fatigue, fever Eyes: corrective lenses, pain, blurred vision ENT: hearing problems, earaches, allergies, nose bleeds Skin: rashes, lumps Respiratory: cough, wheeze, shortness of breath Cardiac: chest discomfort, palpitations Gastrointestinal: swallowing problems, nausea/vomiting, blood in stool, abdominal pain Musculoskeletal: muscle cramps, back pain, joint pain, weakness, tingling, pain in feet Immunologic: food allergies, recurrent infections Urinary: increased frequency, burning, urinating at night, incontinence, blood in urine Psychiatric: anxiety, depression Endocrine: thyroid trouble, diabetes Neurologic: fainting, seizures, loss of memory, headaches, numbness, stroke Hematologic: anemia, bleeding problems, transfusion reaction HISTORIES Past Medical History: Diagnosis Date Allergic rhinitis Asthma Esophageal reflux Type 2 diabetes mellitus without complication, without long-term current use of insulin 11/13/2022 Past Surgical History: Procedure Laterality Date LAPAROSCOPIC CHOLECYSTECTOMY UPPER GI ENDOSCOPY Family History Problem Relation Age of Onset Cancer Father pancreatic Social History Socioeconomic History Marital status: Single Tobacco Use Smoking status: Never Smokeless tobacco: Never Vaping Use Vaping status: Never Used Substance and Sexual Activity Alcohol use: Yes Comment: rare Drug use: No Social History Narrative 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 Extremities/Musculoskeletal: moves extremities well, no edema or cyanosis Skin: skin color, texture, and turgor normal; no rashes or lesions LABORATORY No new labs RADIOLOGY No new rads PATHOLOGY No new Pathology ASSESSMENT Elaine Walker is a 48 year old male s/p EGD and colonoscopy on 12/13, coming after being discharge for tachycardia and fever. RECOMMENDATIONS: - CT esophagram and CT AP w/ contrast - Labs: cbc, cmp - Surgery will give further recommendations after CT results. After reviewing the CT esophagram and AP no signs of perforation, patient with a clinical picture of community acquired pneumonia. - Recommend abx for pneumonia: Augmentin for 5 days. Patient was discussed with Dr. Juliette Billy MD General Surgery PGY-2 Associated attestation - Edward Conley MD - 12/14/2023 4:02 PM CDT I personally examined the patient on 12/14/[address] Will Billy's resident note as written . I actively participated in the decision-making process. Please see the resident's note for additional details. CT reviewed and reassuring OK to discharge Discussed option to admit for obs for PNA He desires discharge with close followup and ABX Message to clinic sent Edward Conley MD [facility] - Health History and Physical Notes Date/Time Note Provider Source 2023-12-14 06:48:56 Interval H&P: I interviewed and examined the patient today. Additionally, I reviewed laboratory results, imaging, and microbiology. Compared to the most recent H&P, there have been no major changes. The risks of the procedure were explained. All questions were answered, voiced understanding and agreement. Informed written consent was obtained. Plan is to proceed to the colonoscopy/EGD. Buster Nolan MD 12/14/23 6:49 AM GENERAL SURGERY CLINIC NOTE Reason for Visit / Chief Complaint: reflux and black, tarry stools, referred for EGD and colonoscopy History of Present Illness: Elaine Walker is a 48 year old male with PMHx as below who presents with a two month history of worsening reflux and black, tarry stools. Pt describes the reflux as burning throat pain that leads to coughing and occasional vomiting, especially when laying down. Pt increased pantoprazole to 2x a day one month ago, and reflux episodes are still occurring 1-2x per week. Pt had 2-3 episodes of black, tarry stools over the past couple months. Pt also noted bowel movements reduced to once a week since starting ozempic in July, but had diarrhea over the past couple of days. Pt has never had a colonoscopy but had an EGD 10-15 years ago and thinks there was a hiatal hernia. 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 He currently is very active at work - he carries tools around and ambulates without chest pain or SOB. He says he can walk up 2 flights of stairs without stopping. No Fhx of colon cancer. Pt not on any blood thinners. Past Medical History: Past Medical History: Diagnosis Date Allergic rhinitis Asthma Esophageal reflux Type 2 diabetes mellitus without complication, without long-term current use of insulin 11/13/2022 Past Surgical History: Past Surgical History: Procedure Laterality Date LAPAROSCOPIC CHOLECYSTECTOMY UPPER GI ENDOSCOPY Allergies: No Known Allergies Family History: Family History Problem Relation Age of Onset Cancer Father pancreatic Social History: Social History Socioeconomic History Marital status: Single Tobacco Use Smoking status: Never Smokeless tobacco: Never Vaping Use Vaping status: Never Used Substance and Sexual Activity Alcohol use: Yes Comment: rare Drug use: No Social History Narrative 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 Otherwise negative.) General: weight changes, fatigue, fever, appetite change, chills Eyes: corrective lenses, pain, blurred vision ENT: hearing problems, earaches, allergies, nose bleeds Skin: rashes, lumps Respiratory: cough, wheeze, shortness of breath Cardiac: chest discomfort, palpitations Gastrointestinal: swallowing problems, nausea, vomiting, blood in stool, abdominal pain Musculoskeletal: muscle cramps, back pain, joint pain, weakness, tingling, pain in feet Immunologic: food allergies, recurrent infections Urinary: increased frequency, burning, urinating at night, incontinence, blood in urine Psychiatric: anxiety, depression Endocrine: thyroid trouble, diabetes Neurologic: fainting, seizures, loss of memory, headaches, numbness, stroke Hematologic: anemia, bleeding problems, transfusion reaction Physical Exam: BP 121/84 | Pulse 65 | Temp 36.8 ?C (98.2 ?F) (Temporal Artery) | Resp 15 | Wt 89.4 kg (197 lb) | SpO2 96% | BMI 26.72 kg/m? Constitutional: Awake, alert, oriented, in no acute distress Cardiovascular: Hemodynamically stable Respiratory: Symmetry of chest wall motion, no respiratory distress GI: Soft, nontender, non-distended, normoactive bowel sounds Extremities: No clubbing, cyanosis, or edema Skin: Warm and dry, capillary refill <2 seconds, no jaundice, rashes, lesions, or erythema Psychiatric: Appropriate mood and affect, no obvious deficits of insight or judgment Assessment: Elaine Walker is a 48 year old male with a two month history of worsening reflux and occasional black tarry stools. Pt reported bowel movements reduced to 1x/week since starting ozempic in July except for diarrhea over the past 3 days. Plan: Plan for EGD and colonoscopy Instructed to hold ozempic for one week prior I personally examined the patient on 11/15/23 and have verified the [facility] medical student documentation and/or findings, including the history, physical exam, and medical decision making. Additionally, I have personally performed or re-performed the physical exam and medical decision making activities of this patient's evaluation and management service. Edward Conley MD Associated attestation - Edward Conley MD - 12/14/2023 7:20 AM CDT Nimisha seen and examined in preop on 12/14/23 Bowel prep completed No more tarry stools No prior colonoscopy Proceed with colonoscopy Edward Conley MD [facility] Notes Date/Time Note Provider Source 2024-02-18 10:51:59 Last Refilled: Disp Refills Start End LUTHER sucralfate 1 gram tablet 120 tablet 0 01/14/2024 -- No Sig: Take 1 tablet by mouth 4 (four) times daily. Sent to pharmacy as: sucralfate 1 gram tablet (CARAFATE) Class: eRX Route: Oral Order: [id number] Date/Time Signed: 01/14/2024 16:51 E-Prescribing Status: Receipt confirmed by pharmacy (01/14/2024 7:02 PM CDT) Recent Visits Date Type Provider Dept 01/14/24 Office Visit Elda Cardenas MD [facility] 09/28/23 Office Visit Lupis Valencia PA [facility] 03/28/23 Office Visit Lasha Gray MD [facility] 12/25/22 Office Visit Lasha Gray MD [facility] 11/13/22 Office Visit Lasha Gray MD [facility] Showing recent visits within past 540 days with a meds authorizing provider and meeting all other requirements Future Appointments No visits were found meeting these conditions. Showing future appointments within next 150 days with a meds authorizing provider and meeting all other requirements Abril Perez [facility] 2024-02-14 09:45:00 Images from the original note were not included. Venipuncture collection performed by clean technique on the right anticubitus. Total of 1 attempts were made. Slight pressure and a bandage/dressing were applied to the site(s). The patient experienced no complications. The following specimens were processed according to instructions and sent to [facility] laboratories per lab order on 02/14/2024 : LT BLUE SST 1 RED LAV PPT DK GREEN (LiHep) DK GREEN (SodH) LUU DK BLUE (K2) DK BLUE (S) ACD Blood Culture NIPT/NTD [facility] - [facility] 2024-02-13 08:37:23 Images from the original note were not included. Name from pharmacy: FAMOTIDINE 20MG TABLETS Will file in chart as: FAMOTIDINE 20 mg tablet Possible duplicate: Hover to review recent actions on this medication Sig: TAKE 1 TABLET BY MOUTH TWICE DAILY NEEDED FOR HEARTBURN Disp: 30 tablet Refills: 0 (Pharmacy requested: Not specified) Start: 02/13/2024 Class: eRX For: Gastroesophageal reflux disease without esophagitis Last ordered: 1 week ago (02/01/2024) by Elda Cardenas MD Last refill: 02/01/2024 Rx #: [id number]|0|1 Gastroenterology: Antiulcer - H2 Antagonists [id number]/13/2024 03:50 AM Protocol Details Valid encounter within last 12 months eGFR in normal range and within 360 days Cr in normal range and within 360 days To be filled at: [id number] - [place], [place] - [address] [facility] [address] 30 day supply sen to pharmacy Recent Visits Date Type Provider Dept 01/14/24 Office Visit Elda Cardenas MD [facility] 09/28/23 Office Visit Lupis Valencia PA [facility] 03/28/23 Office Visit Lasha Gray MD [facility] 12/25/22 Office Visit Lasha Gray MD [facility] 11/13/22 Office Visit Lasha Gray MD [facility] Showing recent visits within past 540 days with a meds authorizing provider and meeting all other requirements Future Appointments No visits were found meeting these conditions. Showing future appointments within next 150 days with a meds authorizing provider and meeting all other requirements Rosi Donohue MA [facility] 2024-02-01 07:16:02 Please review Last Refilled: Disp Refills Start End LUTHER famotidine 20 mg tablet 30 tablet 0 01/14/2024 -- No Sig: Take 1 tablet by mouth 2 (two) times daily as needed for Heartburn. Sent to pharmacy as: famotidine 20 mg tablet (PEPCID AC) Class: eRX Route: Oral Order: [id number] Date/Time Signed: 01/14/2024 16:44 E-Prescribing Status: Receipt confirmed by pharmacy (01/14/2024 6:57 PM CDT) Disp Refills Start End LUTHER naproxen 500 mg tablet 30 tablet 0 01/14/2024 -- No Sig: Take 1 tablet by mouth 2 (two) times daily with meals as needed for Pain (scale 4-6) (Headache). Sent to pharmacy as: naproxen 500 mg tablet (NAPROSYN) Class: eRX Route: Oral Order: [id number] Date/Time Signed: 01/14/2024 16:53 E-Prescribing Status: Receipt confirmed by pharmacy (01/14/2024 7:07 PM CDT) Notes: Office visit 01/14/24 Gastroesophageal reflux disease without esophagitis Chronic, uncontrolled Trial of famotidine for days with worsening reflux - famotidine 20 mg tablet; Take 1 tablet by mouth 2 (two) times daily as needed for Heartburn. Acute nonintractable headache, unspecified headache type Chronic, uncontrolled Likely tension TORRES, trial of naproxen - naproxen 500 mg tablet; Take 1 tablet by mouth 2 (two) times daily with meals as needed for Pain (scale 4-6) (Headache). Recent Visits Date Type Provider Dept 01/14/24 Office Visit Elda Cardenas MD [facility] 09/28/23 Office Visit Lupis Valencia PA [facility] 03/28/23 Office Visit Lasha Gray MD [facility] 12/25/22 Office Visit Lasha Gray MD [facility] 11/13/22 Office Visit Lasha Gray MD [facility] Med Showing recent visits within past 540 days with a meds authorizing provider and meeting all other requirements Future Appointments No visits were found meeting these conditions. Showing future appointments within next 150 days with a meds authorizing provider and meeting all other requirements Jazmin Talamantes RN [facility] 2023-12-14 16:21:38 Pt discharged with diagnosis of nausea and vomiting, fever, aspiration pneumonia of lower left lobe. Printed and verbal instructions reviewed with and given to patient. Prescriptions given x 2. Patient verbalized understanding of teaching, medication administration, and recommended follow-up. Denies questions or concerns at this time. Pt alert and oriented and ambulatory at discharge. Appears in no apparent distress. No ataxia noted. Accompanied by spouse. Karuna Vaughan RN [facility] 2023-12-14 13:25:21 Had colonoscopy done this AM and went home ~10. Started to feel "bad" and shaking around 11. Had 101F temp at that time. Yusra Celis RN [facility] 2023-12-14 13:19:00 [facility] Emergency Department Note Patient Name: Elaine Walker Date of : 1975 48 year old male Treatment Room: TX6/TX6 Primary Care Physician: Lasha Gray Patient Escorted by: Family [5] Mode of Arrival: Personal means [1] EMS Treatment Prior to ED Arrival: Travel and Exposure Screening: Symptoms Does patient have any of these symptoms?: (not recorded) Exposure Screening Has patient had contact with someone with a communicable disease in the last month?: (not recorded) Diseases exposed to:: (not recorded) Is Patient ?: (not recorded) Exposure Date: (not recorded) Chief Complaint: Chief Complaint Patient presents with Post-Op History of Present Illness: The patient presents from home for evaluation for nausea, vomiting and chills that started around 11 AM today. He did have a colonoscopy earlier today and was discharged home around 10 AM. He is still having some diarrhea. No medications taken prior to arrival. Slight rectal pain. He does have a history of diabetes and admits to compliance with his medication. No abdominal pain or cramping. No cough. No sob. No chest pain or pressure. Here for evaluation. Past Medical History/Immunizations: Past Medical History: Diagnosis Date Allergic rhinitis Asthma Esophageal reflux Type 2 diabetes mellitus without complication, without long-term current use of insulin 11/13/2022 Tetanus received in last 5 years: Unknown Allergies: No Known Allergies Past Social History: Tobacco Use Never smoked or used smokeless tobacco. Vaping Use Never used Alcohol Use Yes. Comments: rare Drug Use No. Past Surgical History: Past Surgical History: Procedure Laterality Date LAPAROSCOPIC CHOLECYSTECTOMY UPPER GI ENDOSCOPY Review of Systems: Review of Systems Constitutional: Positive for chills. Negative for fever. Respiratory: Negative for cough and shortness of breath. Cardiovascular: Negative for chest pain. Gastrointestinal: Positive for nausea and vomiting. Negative for abdominal pain. Genitourinary: Negative for dysuria. Musculoskeletal: Negative for arthralgias, neck pain and neck stiffness. Skin: Negative for wound. Neurological: Negative for dizziness. Psychiatric/Behavioral: Negative for agitation. Physical Exam: ED Triage Vitals [12/14/23 1326] Weight 89.4 kg (197 lb) Actual or estimated Estimated by patient/family report Height 1.829 m (6') BP 135/75 Pulse 108 Resp 18 Temp 38.2 ?C (100.8 ?F) Temp source Oral SpO2 96 % Measured on Room air Physical Exam Vitals and nursing note reviewed. Constitutional: Appearance: Normal appearance. He is normal weight. HENT: Head: Normocephalic and atraumatic. Cardiovascular: Rate and Rhythm: Normal rate and regular rhythm. Pulses: Normal pulses. Pulmonary: Effort: Pulmonary effort is normal. No respiratory distress. Breath sounds: No wheezing. Abdominal: General: There is no distension. Palpations: There is no mass. Tenderness: There is no abdominal tenderness. There is no right CVA tenderness or guarding. Hernia: No hernia is present. Musculoskeletal: General: Normal range of motion. Cervical back: Normal range of motion and neck supple. Skin: General: Skin is warm and dry. Neurological: General: No focal deficit present. Mental Status: He is alert. Radiology: CT ESOPHAGOGRAPHY Final Result HISTORY: Possible esophageal perforation after EGD. TECHNIQUE: Initially noncontrast enhanced CT chest was completed. Subsequently Contrast-enhanced 64-mutidetector CT scan of the chest was completed with oral administration of water-soluble contrast medium as well as intravenous injection of non ionic contrast medium. Subsequently numerous sagittal, coronal and MIP reformations were generated. FINDINGS: Hiatal hernia noted with air in the entire thoracic esophagus, likely due to reflux. Small amount of contrast medium is seen outlining the mucosal lining of the upper thoracic esophagus. However, There is no evidence of leakage of orally administered contrast medium. No pneumothorax or pneumomediastinum. No pleural effusion or pericardial effusion. Trachea and central bronchial airways appear normal. Atherosclerosis in the right coronary artery and minimal in the LAD, proximal LCx coronary artery noted. Patchy areas of irregular consolidation noted involving portions of left upper lobe, more affecting the posterior segment, portions of the lingula, more affecting the lateral segment, small portions of left lower lung. No pleural effusion. Minimal linear areas of fibrosis and congestion noted in the right lower lung. 3 mm pleural-based nodule in the posterior right mid chest (9:100 ) 6 mm pleural-based nodule in the right lateral lower chest (9:164), 5 mm pleural-based nodule lateral left lower chest (9:166), 2 mm pleural-based nodule anterior left upper chest (9:50), 2 mm nodule anterior right upper chest (9:78) noted. CONCLUSIONS: 1. Small hiatal hernia with probable gastroesophageal reflux. No CT findings of esophageal perforation. No pneumothorax or pneumomediastinum. 2. Abnormal findings involving portions of left upper lobe, left lingula and left lower lung, likely multifocal pneumonias. Some of the findings in the lingula segment and medial right lower lobe could be chronic fibrosing pneumonia. No pleural effusion. 3. Pleural-based nodules in both lungs, of unknown etiology at this time. Monitoring suggested by low-dose noncontrast CT chest in [address] ABDOMEN PELVIS W CONTRAST Final Result CT Abdomen and Pelvis with intravenous contrast. CLINICAL HISTORY: Abdominal pain. Postop. DOSE: Up-to-date CT equipment and radiation dose reduction techniques were employed. CTDIvol: 7.78+7.49 MGy. DLP: 4.14+336+571 mGy-cm. TECHNIQUE : Contiguous axial imaging from the level of the lung bases through the pubic symphysis were performed after the uncomplicated administration of nonionic contrast material. Coronal and sagittal reconstructions were obtained. Auto mA and/or iterative reconstruction were used to reduce radiation dose. FINDINGS: Lower lungs: Abnormal findings are seen involving portions of lingula and left lower lung which could be multifocal pneumonias. Pleural-based 6 mm nodule noted in the right posterior lower lung. No pleural effusion or pericardial effusion. Contrast medium is seen in small hiatal hernia. Liver, Gallbladder and Spleen: The liver is 15.2 cm and showed mild fatty infiltration. Spleen is enlarged, 14.8 x 5.2 cm and adjacent to the main spleen, 21 mm soft tissue nodule is seen, likely an accessory splenule. Gallbladder has been removed. Biliary ducts and the pancreatic duct appear of normal size. Peritoneum: No free air or free fluid. No lymphadenopathy. Pancreas and Adrenals: Unremarkable pancreas and adrenal glands. Kidneys and Ureters: No visible calculi in the renal collecting systems. No hydroureter or hydronephrosis. 9 mm hypodense lesion in the upper pole and is irregular shaped 11 mm hypodense lesion in the anterior interpolar cortex of the right kidney noted, could be a Bosniak type I or type II cysts. No abnormal enhancement of the cortex detected. Vessels: Mild atherosclerosis of aorta and iliac arteries. Retroperitoneum: No abnormal fluid or lymphadenopathy. Bowel: Orally administered contrast medium noted in the hiatal hernia, gastric chamber and in the duodenum. Air-fluid levels are seen in some of the small bowel loops and right-sided large bowel consistent with ileus. A long but otherwise normal appendix is visualized. Bladder and Reproductive Organs: Enlarged prostate noted. No gross pathology in the unopacified urinary bladder. Bones: Exaggerated lumbosacral lordosis. No acute bony abnormalities. Soft tissues: Indirect type small fat-containing left inguinal hernia suspected. CONCLUSION: 1. No acute findings in contrast enhanced CT scan of abdomen and pelvis. Air-fluid levels in some of the small bowel loops and right side of the large bowel noted, consistent with either ileus or post procedural finding. 2. Mild hepatic steatosis. Splenomegaly. S/P cholecystectomy. 3. 2 hypodense lesions in the right kidney could be Bosniak type II cysts. Monitoring of these 2 lesions requested either by ultrasound or by CT scan in 3-4 months. 4. Contrast medium noted in hiatal hernia without any leakage. 5. Abnormal findings involving portions of left lingula and left lower lung. Etiology could be acute on chronic infection. 6. Single pleural-based right lower lung nodule nodule. XR CHEST 1 VW Final Result HISTORY: S/P colonoscopy. TECHNIQUE: Portable AP upright view of the chest is obtained. FINDINGS: No prior study available for comparison. Diffuse groundglass hazy increased markings are seen involving portions of left lower lung, suspicious for aspiration pneumonia. Right lung is clear. No pneumothorax or pleural effusion or pulmonary congestion detected. Cardiac size is within normal limits. CONCLUSIONS: Abnormal findings in left lower lung, suspicious for aspiration pneumonia. Please correlate with history and clinical evaluation. Lab Results: Lab Results CBC WITH DIFF - Abnormal Result Value Ref Range WBC 7.57 4.20 - 10.70 10*3/?L RBC 5.43 4.26 - 5.52 10*6/?L HGB 12.5 12.2 - 16.4 g/dL HCT 39.5 38.4 - 49.3 % MCV 72.7 (*) 81.7 - 95.6 fL MCH 23.0 (*) 26.1 - 32.7 pg MCHC 31.6 31.2 - 35.0 g/dL RDW-SD 42.5 38.5 - 51.6 fL RDW-CV 16.3 (*) 12.1 - 15.4 % PLT 220 150 - 328 10*3/?L MPV 12.3 9.8 - 13.0 fL NRBC/100 WBC 0.0 0.0 - 10.0 /100 WBCs NRBC x10 3 <0.01 10*3/?L GRAN MAT (NEUT) % 91.3 % IMM GRAN % 0.30 % LYMPH % 5.4 % MONO % 1.6 % EOS % 1.1 % BASO % 0.3 % GRAN MAT x10 3 (ANC) 6.92 1.99 - 6.95 10*3/uL IMM GRAN x10 3 <0.03 0.00 - 0.06 10*3/uL LYMPH x10 3 0.41 (*) 1.09 - 3.23 10*3/uL MONO x10 3 0.12 (*) 0.36 - 1.02 10*3/uL EOS x10 3 0.08 0.06 - 0.53 10*3/uL BASO x10 3 <0.03 0.01 - 0.09 10*3/uL COMP. METABOLIC PANEL (58166) - Abnormal NA 138 135 - 145 mmol/L K 3.1 (*) 3.5 - 5.0 mmol/L CL 108 98 - 108 mmol/L CO2 TOTAL 19 (*) 23 - 31 mmol/L AGAP 11 2 - 16 BUN 15 7 - 23 mg/dL GLUCOSE 122 (*) 70 - 110 mg/dL CREATININE 0.81 0.60 - 1.25 mg/dL TOTAL BILI 0.6 0.1 - 1.1 mg/dL CALCIUM 9.3 8.6 - 10.6 mg/dL T PROTEIN 7.5 6.3 - 8.2 g/dL ALBUMIN 4.1 3.5 - 5.0 g/dL ALK PHOS 45 34 - 122 U/L ALTv 60 (*) 5 - 50 U/L AST(SGOT) 55 (*) 13 - 40 U/L eGFR 107.4 mL/min/1.73m2 EKG: If EKG completed, see Procedure Note. Orders and Treatments: Orders Placed This Encounter Procedures XR CHEST [address] ABDOMEN PELVIS W CONTRAST CBC WITH DIFF COMP. METABOLIC PANEL (55404) Orders Placed This Encounter Medications NaCl 0.9% (NS) bolus infusion 1,000 mL ondansetron (ZOFRAN (PF)) injection 4 mg acetaminophen (OFIRMEV) IV piggyback 1,000 mg iopamidol (ISOVUE 370-500 mL) injection 84 mL diatrizoate sonu-diatrizoat sod (GASTROGRAFIN) 66-10 % oral solution 20 mL amoxicillin-clavulanate (AUGMENTIN) 875-125 mg per tablet ondansetron 4 mg disintegrating tablet amoxicillin-clavulanate 875-125 mg per tablet First Provider Eval: ED Events Date/Time Event User Comments 12/14/23 1323 Medical Screening Begins LE ESCOBEDO DO- 12/14/23 1323 First Provider Evaluation LE ESCOBEDO DO -- ED COURSE Diagnosis/Impression as of 12/14/23 1557 Nausea and vomiting, unspecified vomiting type Fever, unspecified fever cause Aspiration pneumonia of left lower lobe, unspecified aspiration pneumonia type Procedures: Procedures MDM: Medical Decision Making The patient presents from home for evaluation for nausea, vomiting as well as chills that started around 11 AM today. He did have a colonoscopy earlier this morning and was discharged home around 10 AM. He still has a slight amount of diarrhea. No medications taken prior to arrival. He complains of slight rectal soreness but no abdominal pain or cramping. He does have history of diabetes and admits to compliance with his medication. The patient is febrile here in the ER. He has dry mucous membranes. His abdomen is soft and nontender on examination. Low concern for intra-abdominal free air however we will obtain an x-ray. Will give antiemetics as well as antipyretics. Will check laboratory studies and consult general surgery as they did complete his colonoscopy this morning. Final disposition pending. 1555 - the patient is doing well here in the ER. His fever has improved after the IV Tylenol. His laboratory studies are unremarkable. His nausea and vomiting has resolved and he is able to tolerate by mouth without difficulty. He was seen by the general surgery service who completed his colonoscopy earlier today and the recommendation was for CT of his esophagus as well as the abdomen and pelvis. This is suggestive of a possible aspiration pneumonia. Will discharge patient home in stable condition with antibiotics as well as Zofran to use every 8 hours as needed for nausea and vomiting. He remained stable here in the ER and is okay for discharge home with PCP follow-up. Problems Addressed: Aspiration pneumonia of left lower lobe, unspecified aspiration pneumonia type: acute illness or injury Fever, unspecified fever cause: acute illness or injury Nausea and vomiting, unspecified vomiting type: acute illness or injury Amount and/or Complexity of Data Reviewed Labs: ordered. Decision-making details documented in ED Course. Radiology: ordered and independent interpretation performed. Decision-making details documented in ED Course. Risk OTC drugs. Prescription drug management. Flowsheet Documentation: Scoring Tools: No data recorded Disposition/Condition: ED Disposition ED Disposition Disch - Home Condition Stable Comment -- Discharge Medications: Patient's Medications START taking these medications AMOXICILLIN-CLAVULANATE (AUGMENTIN) 875-125 MG PER TABLET Take 1 tablet by mouth in the morning and 1 tablet in the evening. Do all this for 5 days. AMOXICILLIN-CLAVULANATE 875-125 MG PER TABLET Take 1 tablet by mouth every 12 (twelve) hours for 5 days. ONDANSETRON 4 MG DISINTEGRATING TABLET Take 1 tablet by mouth every 8 (eight) hours as needed for Nausea and Vomiting (N/V). CONTINUE taking these medications which have NOT CHANGED ALCOHOL SWABS PADM BD ULTRAFINE III MINI PEN 31 GAUGE X 3/16" NDLE CETIRIZINE (ZYRTEC) 10 MG TABLET Take 1 tablet by mouth at bedtime as needed. EMPAGLIFLOZIN (JARDIANCE) 25 MG TAB TABLET Take 1 tablet by mouth in the morning. FENOFIBRATE 160 MG TABLET TAKE 1 TABLET BY MOUTH IN THE MORNING LISDEXAMFETAMINE 60 MG CAPSULE Take 1 capsule by mouth every morning. METFORMIN 500 MG TABLET TAKE 1 TABLET BY MOUTH IN THE MORNING AND IN THE EVENING WITH MEALS MICRO THIN LANCETS 33 GAUGE MISC PANTOPRAZOLE 40 MG EC TABLET Take 1 tablet by mouth in the morning and 1 tablet in the evening. Do all this for 180 days. ROSUVASTATIN 20 MG TABLET Take 1 tablet by mouth in the morning. SEMAGLUTIDE (OZEMPIC) 0.25 MG OR 0.5 MG (2 MG/3 ML) PNIJ inject 0.5 mg under the skin weekly. DX E11.9 START taking Modified Medications as Prescribed No medications on file STOP taking these medications No medications on file Follow-up: Electronically signed by: Le Escobedo DO 12/14/[address] [facility] 2023-12-14 12:54:35 Patient girlfriend calling to state patient is shaking, chills, and vomiting uncontrollably. Had girlfriend check heart rate which was 116, checked blood sugar which was 120, patient does not have a blood pressure cuff, girlfriend recheck temperature and stated it was 101.5F. This RN advised patient to proceed to the ER. MD Conley made aware patient was advised to proceed to the ER. Contacted ER and gave report to Karuna ZURITA. Jesenia Peralta RN [facility] 2023-11-27 13:31:18 Images from the original note were not included. Your upcoming procedure is at [facility] on 12/14/23. The address is [address] [place] [address], [id number]The nursing staff at [facility] will call you the workday before your procedure to let you know what time to arrive. When you arrive, please go inside and sign in at the desk. Please note: You may not travel home alone after your procedure and that includes in a taxi or by bus. We must speak to your Responsible Adult (who will be picking you up) the morning of your procedure, before the start of your procedure. This person must be an adult over the age of 18 years of age. Maintain a clear liquid diet the entire day before your procedure. Do not drink anything containing red, blue, or purple dyes. Follow the instructions of your bowel prep as directed by you physician. You may also take your medications the morning of your procedure with a sip of water as directed by physician. Anticoagulants will be per physician Guidance. Medication Note(s)/Instructions: Instructed to hold Ozempic dose due on 12/09/23, hold Jardiance three days prior to procedures, and hold metformin morning of procedures. Both patient and person accompanying and/or picking patient up must be able to wear a mask and be without symptoms of COVID 19. Pending screening, a COVID test may be required. If a patient tests positive, their cases are cancelled and/or rescheduled. COVID NOTE: Denies COVID symptoms or exposure, no testing required. Additional questions, concerns, requests:Emailed copy of bowel prep instructions. Cb number and availability provided. Patient verbalized understanding of pre-op instructions and voiced no further questions at this time. [facility] 2023-11-15 09:30:00 Addended by: DELANEY TIRADO LVN on: 11/16/2023 02:48 PM Modules accepted: Orders [facility] 2023-11-08 16:33:28 Pt scheduled to see Dr[address] Conley 11/15/23. Lily Skinenr [facility] 2023-11-07 10:33:34 I probably can, but I want to see this patient in clinic prior. FARA-SURGERY STAFF [facility] 2023-11-06 14:26:17 Pt has upper and lower EDG scheduled in [facility] for 02/18/24. Pt is wanting to know if he could have this done in [facility] sooner. Please advise. Lily Skinner [facility] 2023-10-24 15:26:48 [facility] 07/13/23 11/23/23 Per [facility] note: Okay, let's take Ozempic 0.25 mg weekly for four weeks, then increase to 0.5 mg. Anahi Woods FEED HAND[employer]ER [facility] 2023-10-08 10:12:01 [facility] 07/13/23 11/23/23 Per RAQUEL note: Continue Jardiance and metformin at the same dosages. Anahi Woods LVN [facility] 2023-10-01 07:18:11 Last Refilled: Fenofibrate 160 mg tablet 90 tablet 3 12/20/2022 -- No Sig: Take 1 tablet by mouth in the morning. Sent to pharmacy as: fenofibrate 160 mg tablet (LOFIBRA) Class: eRX Route: Oral Order: [id number] Date/Time Signed: 12/20/2022 11:09 E-Prescribing Status: Receipt confirmed by pharmacy (12/20/2022 11:09 AM CDT) Recent Visits Date Type Provider Dept 09/28/23 Office Visit Lupis Valencia PA [facility] 03/28/23 Office Visit Lasha Gray MD [facility] 12/25/22 Office Visit Lasha Gray MD [facility] 11/13/22 Office Visit Lasha Gray MD [facility] Showing recent visits within past 540 days with a meds authorizing provider and meeting all other requirements Future Appointments No visits were found meeting these conditions. Showing future appointments within next 150 days with a meds authorizing provider and meeting all other requirements Abril Perez [facility] 2023-09-28 13:30:00 Images from the original note were not included. Venipuncture collection performed by clean technique on the right anticubitus. Total of 1 attempts were made. Slight pressure and a bandage/dressing were applied to the site(s). The patient experienced no complications. The following specimens were processed according to instructions and sent to [facility] laboratories per lab order on 09/28/2023 : LT BLUE SST 1 RED LAV 1 PPT DK GREEN (LiHep) DK GREEN (SodH) LUU DK BLUE (K2) DK BLUE (S) ACD Blood Culture NIPT/NTD Patient only wanted labs for Louis Beaulieu 09/28/2023 1:[address] [facility] 2023-08-28 09:27:19 Spoke to patient who reports he is vomiting bright red blood since the weekend and has dark black stools. Dizzy and lightheaded. Advised patient to seek care in the ER HUGO as this is an indicator of a GI bleed. Patient verbalized understanding and will go to ER now. ,Ro William LVN 08/28/2023 9:[address] [facility] 2023-07-13 15:45:00 Images from the original note were not included. Venipuncture collection performed by clean technique on the left anticubitus. Total of 1 attempts were made. Slight pressure and a bandage/dressing were applied to the site(s). The patient experienced no complications. The following specimens were processed according to instructions and sent to [facility] laboratories per lab order on today: LT BLUE SST 1 RED LAV 1 PPT DK GREEN (LiHep) DK GREEN (SodH) LUU DK BLUE (K2) DK BLUE (S) ACD Blood Culture NIPT/NTD Patient stated he was not fasting and will do his other lab at a later date.Latosha Rivera 07/13/2023 3:25 PM Patient has been identified by name and was provided with cup, antiseptic towelette, and clean catch instructions. 1 urine specimen(s) sent. Unpreserved Urine Culture Aptima tube Other urine microalbumin [facility] 2023-01-05 16:15:00 Formatting of this n ote is different from the original. Images from the original note were not included. Venipuncture collection performed by clean technique on the left forearm(s). Total of 1 attempts were made. Slight pressure and a bandage/dressing were applied to the site(s). The patient experienced no complications. The following specimens were processed according to instructions and sent to [facility] laboratories per lab order on TODAY: LT BLUE SST 3 RED LAV PPT DK GREEN (LiHep) DK GREEN (SodH) LUU DK BLUE (K2) DK BLUE (S) ACD Blood Culture NIPT/NTD [facility]
[2024-02-21] MEDS ORDERED: ACETAMINOPHEN 325 MG TABLET PO PRN (09:24)
[2024-02-21] MEDS ORDERED: ONDANSETRON 4 MG/2 ML VIAL IV PRN (09:24)
[2024-02-21] MEDS: PIPER TAZO 3.375 GM in NA CHLORIDE 0.9% 100 ML IV SCH (10:00)
[2024-02-21 10:06] LABS: Absolute Basophils 0.1 K/uL (0-0.5); Absolute Eosinophils 0.5 K/uL (0-0.5); Absolute Lymphocytes (CBC) 1.4 K/uL (0.7-4.9); Absolute Monocytes 0.8 K/uL (0.1-1.3); Absolute Neutrophil 5.1 K/uL (1.8-8.0); Basophils % 0.8 % (0-1.3); Hemoglobin 12.9 g/dL (13.6-17.9); Lymphocytes % 17.6 % (15.3-44.8); MCH 22.6 pg (27.0-35.0); MCHC 32.1 g/dL (32.0-36.0); MCV 70.4 fL (80-100); MPV 10.2 fL (7.6-11.3); Monocytes % 10.6 % (3.3-12.3); Nucleated Red Blood Cells % 0.1 % (0-0); Platelets 211 thou/uL (152-406); RBC Red Blood Cell Count 5.69 M/uL (4.33-5.43); Red Cell Distribution Width 17.5 % (12.1-15.2)
[2024-02-21 10:08] LABS: PT Prothrombin Time 11.9 SECONDS (9.4-12.5); Protime INR 1.06
[2024-02-21 10:24] LABS: Anion Gap 11.6 mEq/L (5.0-15.0); Potassium 3.6 mEq/L (3.5-5.1); Troponin High Sensitivity 26.2 pg/mL (<58.9)
--- NOTE | 2024-02-21 10:32 | RAD REPORT ---
EXAMINATION: ONE VIEW CHEST XR CLINICAL INDICATION: Male, 48 years old. CHEST PAIN . TECHNIQUE: 1 View, AP supine, X-ray of the chest was performed. [id number]. COMPARISON: No prior exam. FINDINGS: Lungs and pleura: Clear lungs. No effusion. Heart and mediastinum: Normal heart size. Unremarkable mediastinal contours. Osseous structures: No acute abnormality. Tubes/lines: None Other: None. IMPRESSION: No acute intrathoracic abnormality.
--- NOTE | 2024-02-21 10:52 | P.HP ---
Certification for Inpatient Patient admitted to: Observation With expected LOS: <2 Midnights Patient will require the following post-hospital care: None Practitioner: I am a practitioner with admitting privileges, knowledge of patient current condition, hospital course, and medical plan of care. Services: Services provided to patient in accordance with Admission requirements found in Title 42 Section 412.3 of the Code of Federal Regulations Patient History Date of Service: 02/21/24 Reason for admission: Chest pain History of Present Illness: 48-year-old male with history of CAD, hyperlipidemia, hvt-ipvfvka-ixpcyctik diabetes, gastric ulcers/GERD presents emergency department chief complaint of chest pain. 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 EMS was activated, he was given 1 nitroglycerin tablet and his symptoms have since resolved. He was evaluated in the emergency department initial high-sensitivity troponin as well as EKG without STEMI criteria, ED wishes to admit under observation for ACS rule out. He had a coronary angiogram performed 11/08/22 which showed severe right PDA stenosis with balloon angioplasty and moderate CAD otherwise. He has not been taking aspirin for a few months now, was taken off Brilinta by cardiology per patient. Patient has also been undergoing treatment/evaluation for GERD/gastric ulcers, he had EGD performed and December of this year and has been on pantoprazole, famotidine and sucralfate at home. He reports the pain was significantly different than this although he has been dealing with some nausea and vomiting the past couple of days. Allergies No Known Allergies Allergy (Unverified 11/07/22 17:05) Home Medications: Alcohol Antiseptic Pads [Alcohol Swabs] 1 each TP DAILY #1 box 11/09/22 Aspirin Chewable [Aspirin Chewable*] 81 mg PO DAILY #30 tab.chew 11/09/22 Blood Sugar Diagnostic [Blood Glucose Test Strip] 1 each MC DAILY #30 strip 11/09/22 Blood-Glucose Meter [Blood Glucose Monitoring] 1 each MC DAILY #1 ea 11/09/22 Fenofibrate 160 mg PO DAILY #30 tab 11/09/22 Insulin Detemir [Levemir Flexpen] 15 unit SQ DAILY #15 ml 11/09/22 Lancets [Lancets Thin] 1 each MC DAILY #100 ea 11/09/22 Metformin HCl 500 mg PO BID #60 tab 11/09/22 Pantoprazole [Protonix Tab*] 40 mg PO DAILYAC #30 tab 11/09/22 Pen Needle, Diabetic [Insulin Pen Needle] 1 dis.ndl MC DAILY #100 dis.ndl 11/09/22 Ticagrelor [Brilinta*] 90 mg PO BID #30 tab 11/09/22 - Past Medical/Surgical History -: CAD -: Hyperlipidemia -: Ego-zwkbujr-juspnrziu diabetes -: GERD/gastric ulcers -: None Psychosocial/ Personal History: Patient lives at home with family - Family History Family History: Reviewed- Non-Contributory - Social History Smoking Status: Never smoker Alcohol use: Yes CD- Drugs: No Caffeine use: Yes Place of Residence: Home Review of Systems 10-point ROS is otherwise unremarkable Cardiovascular: Chest Pain Physical Examination - Physical Exam General: Alert, In no apparent distress, Oriented x3 HEENT: Atraumatic, PERRLA, EOMI Neck: Supple, 2+ carotid pulse no bruit, No LAD Respiratory: Clear to auscultation bilaterally, Normal air movement Cardiovascular: Regular rate/rhythm, Normal S1 S2 Gastrointestinal: Normal bowel sounds, No tenderness Musculoskeletal: No tenderness Integumentary: No rashes Neurological: Normal speech, Normal strength at 5/5 x4 extr, Normal affect Assessment and Plan - Plan Assessment: Chest pain rule out ACShistory of CAD GERD/gastric ulcers Diabetes mellitus type 1kiw-tjnebvg-ansgqrggy Hyperlipidemia Plan: Chest pain rule out ACShistory of CAD Heart cath 11/08/2022 showed severe right PDA stenosis status post balloon angio plasty-moderate disease elsewhere Was treated with aspirin Brilinta, statin, was taken off Brilinta but stopped taking aspirin by himself a few months ago Initial troponin negative, EKG without STEMI bacteria Admitted observation, repeat cardiac enzymes, monitor on telemetry and obtain cardiology consult GERD/gastric ulcers Continue medications including famotidine, pantoprazole, sucralfate Further management as noted patient for GI Diabetes mellitus type 6toe-ubgkceu-zghjyalbb ACHS Accu-Chek, sliding scale insulin Hyperlipidemia Rosuvastatin continued DVT PPX: Lovenox Code status:full Discharge Plan: Home - Advance Directives Does patient have a Living Will: No Does patient have a Durable POA for Healthcare: No - Code Status/Comfort Care Code Status Assessed: Yes (Full code) Critical Care: No Time Spent Managing Pts Care (In Minutes): 54
--- NOTE | 2024-02-21 11:02 | ER ---
Nurse's Notes [facility] Name: Edmund Sarabia Age: 48 yrs Sex: Male : 1975 Arrival Date: 02/21/2024 Time: 09:09 Bed 2 Private MD: Diagnosis: Chest pain, unspecified Presentation: 02/20 09:10 Chief complaint: EMS states: Was at work and began having 9/10, midsternal chest pain ph that radiated to back, went to medical and was given 324 ASA, IV to LFA by EMS and nitro x 1 given, chest pain resolved prior to arrival, all VSS, BGL 117. Coronavirus screen: Vaccine status: Patient reports receiving the 2nd dose of the covid vaccine. Ebola Screen: No symptoms or risks identified at this time. Initial Sepsis Screen: Does the patient meet any 2 criteria? No. Patient's initial sepsis screen is negative. Does the patient have a suspected source of infection? No. Patient's initial sepsis screen is negative. Risk Assessment: Do you want to hurt yourself or someone else? Patient reports no desire to harm self or others. Onset of symptoms was February 21, 2024. 09:10 Method Of Arrival: EMS: [facility] 09:10 Acuity: IRASEMA 2 ph Triage Assessment: 09:15 General: Appears in no apparent distress. comfortable, well groomed, Behavior is calm, ph cooperative, appropriate for age. Pain: Denies pain. Complains of pain in midsternal chest pain radiating to back this morning, pain has resolved. Neuro: Level of Consciousness is awake, alert, obeys commands, Oriented to person, place, time, situation. Cardiovascular: Capillary refill < 3 seconds in bilateral fingers Patient's skin is warm and dry. Rhythm is sinus rhythm. Respiratory: Airway is patent Respiratory effort is even, unlabored. Derm: Skin is pink, warm \T\ dry. Historical: - Allergies: 09:33 No Known Allergies; ph - PMHx: 09:33 Hypertensive disorder; Myocardial infarction; Diabetes mellitus; ph - Immunization history:: Adult Immunizations unknown. - Infectious Disease History:: Denies. - Social history:: Smoking status: Patient denies any tobacco usage or history of. Screenin:02 [facility] ED Fall Risk Assessment (Adult) History of falling in the last 3 months, ph including since admission No falls in past 3 months (0 pts) Confusion or Disorientation No (0 pts) Intoxicated or Sedated No (0 pts) Impaired Gait No (0 pts) Mobility Assist Device Used No (0 pt) Altered Elimination No (0 pt) Score/Fall Risk Level 0 - 2 = Low Risk Oriented to surroundings, Maintained a safe environment, Hourly rounding (assess needs \T\ fall precautionary measures) done. Abuse screen: Denies threats or abuse. Denies injuries from another. Nutritional screening: No deficits noted. Tuberculosis screening: No symptoms or risk factors identified. Assessment: 10:04 General: SEE TRIAGE ASSESMENT. ph 10:12 Reassessment: Patient appears in no apparent distress at this time. Patient and/or ph family updated on plan of care and expected duration. Pain level reassessed. Patient is alert, oriented x 3, equal unlabored respirations, skin warm/dry/pink. Patient denies pain at this time. 11:30 Reassessment: Patient appears in no apparent distress at this time. Patient and/or ph family updated on plan of care and expected duration. Pain level reassessed. Patient is alert, oriented x 3, equal unlabored respirations, skin warm/dry/pink. Patient denies pain at this time. 13:00 Reassessment: Patient appears in no apparent distress at this time. Patient and/or ph family updated on plan of care and expected duration. Pain level reassessed. Patient is alert, oriented x 3, equal unlabored respirations, skin warm/dry/pink. Vital Signs: 09:10 BP 129 / 75; Pulse 84; Resp 16; Temp 97.2; Pulse Ox 100% ; Weight 89.81 kg; Height 6 ph ft. 0 in. ; 10:04 BP 125 / 79; Pulse 81; Resp 18; Pulse Ox 95% on R/A; ph 11:00 BP 126 / 72; Pulse 83; Resp 18; Pulse Ox 98% on R/A; ph 12:30 BP 123 / 76; Pulse 81; Resp 18; Pulse Ox 99% on R/A; ph 09:10 Body Mass Index 26.85 (89.81 kg, 182.88 cm) ph ED Course: 09:10 Patient arrived in ED. iw 09:10 Guanaco Ojeda MD is Attending Physician. ec2 09:31 Davis, Latricia, RN is Primary Nurse. ph 09:33 Triage completed. ph 09:34 Arm band placed on Patient placed in an exam room, on a stretcher, on outreach representative, ph on pulse oximetry. 10:03 Patient has correct armband on for positive identification. Placed in gown. Bed in low ph position. Call light in reach. Side rails up X 1. varnish cooker on. Pulse ox on. NIBP on. Door closed. Noise minimized. Warm blanket given. Pillow given. 10:03 Initial lab(s) drawn, by me, sent to lab. EKG done, by ED staff, reviewed by Guanaco Ojeda MD. Inserted saline lock: 22 gauge in right antecubital area, using aseptic technique. Blood collected. Flushed with 10 mL NS. Patient maintains SpO2 saturation greater than 95% on room air. 10:11 Basic Metabolic Panel Sent. ph 10:11 NT PRO-BNP Sent. ph 11:01 Jeremy Ruiz MD is Hospitalizing Provider. ec2 11:01 Hospitalizing Provider role handed off by Jeremy Ruiz MD ec2 11:01 Jeremiah Ruiz MD is Hospitalizing Provider. ec2 11:58 1158 CM met with patient and female friend at the bedside in the ED exam room. Patient ane identified by name and . Demographic sheet confirmed. Mr. Sarabia states he lives alone in a ground floor apartment. He reports that prior to admission, he performs ADLs independently and without physical limitations .No MPOA in place, no HH, home oxygen or other medical services at this time. His preferred plan is to return home upon discharge. He states that friend will bring his vehicle to the hospital so that he may transport himself home. CM team will continue to follow and coordinate care. 13:03 No provider procedures requiring assistance completed. Patient admitted, IV remains in ph place. Administered Medications: 13:02 Not Given (Patient Refused): ondansetron 4 mg IVP once; over 2 minutes ph 13:03 Not Given (Patient Refused): morphineor iv 4 mg IVP once over 4 mins ph Medication: 10:03 VIS not applicable for this client. ph Outcome: 11:01 Decision to Hospitalize by Provider. ec2 13:03 Patient left the ED. ph 13:03 Admitted to Tele accompanied by tech, via wheelchair, with chart, ph 13:03 Condition: good 13:03 Instructed on the need for admit, Signatures: Leatha Reddy, RN PARMINDER Latricia Davis RN RN Guanaco Ojeda MD MD ec2 Deneen Valle RN RN rose
--- NOTE | 2024-02-21 11:02 | EDPHYS ---
Physician Documentation [facility] Name: Edmund Sarabia Age: 48 yrs Sex: Male : 1975 Arrival Date: 02/21/2024 Time: 09: Bed 2 Private MD: ED Physician Guanaco Ojeda HPI: 02/20 09:11 This 48 yrs old Male presents to ER via Unassigned with complaints of chest ec2 pain. 09:11 Patient arrives today for evaluation of left-sided chest pain that began approximately ec2 1 hour prior to arrival. Patient reports the pain without any specific alleviating or exacerbating factors. Reports history of ACS, not on blood thinners, does have a history of hyperlipidemia as well as diabetes. Patient reports no difficulty breathing. Denies any leg swelling. History gathered from EMS as well. EMS had given the patient full dose of aspirin as well as a dose of nitroglycerin which subsequently subsided the patient's pain.. Historical: - Allergies: 09:33 No Known Allergies; ph - PMHx: 09:33 Hypertensive disorder; Myocardial infarction; Diabetes mellitus; ph - Immunization history:: Adult Immunizations unknown. - Infectious Disease History:: Denies. - Social history:: Smoking status: Patient denies any tobacco usage or history of. ROS: 09:11 Constitutional: as per hpi ec2 Exam: 09:11 Constitutional: GEN: NAD Head: atraumatic Eyes: EOMI Ears: External ears are ec2 normal. CV: regular rate LUNGS: no respiratory distress ABD: non-distended SKIN: no evidence of rashes MSK: no evidence of trauma 09:11 ECG was reviewed by the Attending Physician. Vital Signs: 09:10 BP 129 / 75; Pulse 84; Resp 16; Temp 97.2; Pulse Ox 100% ; Weight 89.81 kg; Height 6 ph ft. 0 in. ; 10:04 BP 125 / 79; Pulse 81; Resp 18; Pulse Ox 95% on R/A; ph 11:00 BP 126 / 72; Pulse 83; Resp 18; Pulse Ox 98% on R/A; ph 12:30 BP 123 / 76; Pulse 81; Resp 18; Pulse Ox 99% on R/A; ph 09:10 Body Mass Index 26.85 (89.81 kg, 182.88 cm) ph MDM: 09:10 Patient medically screened. ec2 09:11 Data reviewed: vital signs. ED course: Patient arrives today for evaluation of chest ec2 pain. Examination remarkable for nontoxic and vigorous otherwise in no acute distress. Will obtain a cardiac workup. Will give the patient morphine for pain as well as Zofran. Differential includes ACS, anemia, electrolyte disturbances, doubt PE or dissection.. 09:58 ED course: EKG independently reviewed and interpreted by me, shows normal sinus rhythm, ec2 rate of 79, no acute ST segment elevations, intervals are nonconcerning, nonspecific T wave abnormalities noted in the inferior leads. . 09:58 ED course: External records show previous catheterization with previous 100% occlusion ec2 with angioplasty performed.. 10:34 ED course: Workup is unrevealing, given patient's history of ACS, onset of symptoms as ec2 well as improvement with nitroglycerin, will admit for cardiac workup. Discussed case with hospitalist, pending admission. . 02/20 09:11 Order name: Basic Metabolic Panel; Complete Time: 10: ec2 02/20 09:11 Order name: CBC with Diff; Complete Time: 10: ec2 02/20 09:11 Order name: NT PRO-BNP; Complete Time: 10: ec2 02/20 09:11 Order name: PT-INR; Complete Time: 10: ec2 02/20 09:11 Order name: Troponin HS; Complete Time: 10: ec2 02/20 09:11 Order name: XRAY Chest (1 view) ec2 02/20 10:32 Order name: RAD EDMS 02/20 09:11 Order name: EKG; Complete Time: 09: ec2 02/20 09:11 Order name: Cardiac monitoring; Complete Time: 10: ec2 02/20 09:11 Order name: EKG - Nurse/Tech; Complete Time: 10: ec2 02/20 09:11 Order name: IV Saline Lock; Complete Time: 10: ec2 02/20 09:11 Order name: Labs collected and sent; Complete Time: 10: ec2 02/20 09:11 Order name: O2 Per Protocol; Complete Time: 10: ec2 02/20 09:11 Order name: O2 Sat Monitoring; Complete Time: 10: ec2 Administered Medications: 13:02 Not Given (Patient Refused): ondansetron 4 mg IVP once; over 2 minutes ph 13:03 Not Given (Patient Refused): morphineor iv 4 mg IVP once over 4 mins ph Disposition Summary: 02/21/24 11:01 Hospitalization Ordered Notes: Hospitalization Status: Inpatient Admission ec2 Provider: Jeremiah Ruiz ec2 Location: Telemetry/[facility] (Inpatient) ec2 Condition: Stable ec2 Problem: new ec2 Symptoms: have improved ec2 Bed/Room Type: Standard ec2 Room Assignment: 230(02/21/24 11:56) morena Diagnosis - Chest pain, unspecified ec2 Forms: - Medication Reconciliation Form ec2 - SBAR form ec2 - Leadership Thank You Letter ec2 Signatures: Dispatcher [employer] Latricia Flores RN RN Jason Soares RN RN ja1 Guanaco Ojeda MD MD ec2 Corrections: (The following items were deleted from the chart) 09:11 09:11 BASIC METABOLIC PANEL+C.LAB.BRZ ordered. [facility] ED[facility] 09:11 09:11 CBC+H.LAB.BRZ ordered. [facility] 09:11 09:11 PROBNP+C.LAB.BRZ ordered. [facility] ED[facility] 09:11 09:11 PROTIME (+INR)+COAG.LAB.BRZ ordered. [facility] ED[facility] 09:11 09:11 Troponin High Sensitivity+C.LAB.BRZ ordered. [facility] EDNM 09:12 09:11 Patient arrives today for evaluation of left-sided chest pain that began ec2 approximately 1 hour prior to arrival. Patient reports the pain without any specific alleviating or exacerbating factors. Reports history of ACS, not on blood thinners, does have a history of hyperlipidemia as well as diabetes. Patient reports no difficulty breathing. Denies any leg swelling. . ec2 11:56 11:01 ec2 ja1
[2024-02-21] MEDS: INSULIN REGULAR (HUMAN) 100 UNIT/ML SQ SCH (12:48)
[2024-02-21] MEDS: SUCRALFATE 1 GM TABLET PO SCH (12:48)
--- NOTE | 2024-02-21 13:04 | P.CNS ---
Date of Consult: 02/21/24 Chief Complaint: Chest pain History of Present Illness: Patient with PMH of CAD s/p PTCA RPDA back in 2022, HTN, GERD, Hiatal hernia, gastric ulcer, presented with mid chest pain radiated to his back lasted for 5- 10 minutes, happened also 2 weeks ago, denies any other cardiac symptoms. Allergies No Known Allergies Allergy (Unverified 11/07/22 17:05) Home medications list reviewed: Yes Home Medications: Alcohol Antiseptic Pads [Alcohol Swabs] 1 each TP DAILY #1 box 11/09/22 Aspirin Chewable [Aspirin Chewable*] 81 mg PO DAILY #30 tab.chew 11/09/22 Blood Sugar Diagnostic [Blood Glucose Test Strip] 1 each MC DAILY #30 strip 11/09/22 Blood-Glucose Meter [Blood Glucose Monitoring] 1 each MC DAILY #1 ea 11/09/22 Fenofibrate 160 mg PO DAILY #30 tab 11/09/22 Insulin Detemir [Levemir Flexpen] 15 unit SQ DAILY #15 ml 11/09/22 Lancets [Lancets Thin] 1 each MC DAILY #100 ea 11/09/22 Metformin HCl 500 mg PO BID #60 tab 11/09/22 Pantoprazole [Protonix Tab*] 40 mg PO DAILYAC #30 tab 11/09/22 Pen Needle, Diabetic [Insulin Pen Needle] 1 dis.ndl MC DAILY #100 dis.ndl 11/09/22 Ticagrelor [Brilinta*] 90 mg PO BID #30 tab 11/09/22 - Past Medical/Surgical History -: CAD -: Hyperlipidemia -: Mbg-yafqxyi-cchfzpynr diabetes -: GERD/gastric ulcers -: None Psychosocial/ Personal History: Patient lives at home with family - Social History Alcohol use: Yes CD- Drugs: No Caffeine use: Yes Place of Residence: Home Review of Systems 10-point ROS is otherwise unremarkable Physical Examination General: Alert, In no apparent distress HEENT: Atraumatic, PERRLA, Mucous membr. moist/pink, EOMI, Sclerae nonicteric Neck: Supple, 2+ carotid pulse no bruit, No LAD, Without JVD or thyroid abnormality Respiratory: Clear to auscultation bilaterally, Normal air movement Cardiovascular: Regular rate/rhythm, Normal S1 S2 Gastrointestinal: Normal bowel sounds, No tenderness Musculoskeletal: No tenderness Integumentary: No rashes Neurological: Normal gait, Normal speech, Normal tone, Normal affect Lymphatics: No axilla or inguinal lymphadenopathy - Problems (1) HTN (hypertension) Current Visit: Yes Status: Acute Plan: Continue to monitor and resume home medications. (2) CAD (coronary artery disease) Current Visit: No Status: Acute Plan: with history of PTCA to RPDA. Continue to trend cardiac enzymes x 3 sets get Nuclear stress test in am (Cardiolite) (3) Hypertriglyceridemia Current Visit: No Status: Chronic Plan: Continue Crestor 20 mg daily
[2024-02-21 20:54] VITALS: BMI 28.0
[2024-02-21] MEDS: PANTOPRAZOLE 40MG TABLET PO ONE (21:53)
[2024-02-21] MEDS: ROSUVASTATIN 10 MG TAB PO SCH (21:58)
[2024-02-21] MEDS: PANTOPRAZOLE 40MG TABLET PO SCH (21:59)
[2024-02-22 06:47] LABS: Absolute Eosinophils 0.5 K/uL (0-0.5); Absolute Lymphocytes (CBC) 1.3 K/uL (0.7-4.9); Absolute Monocytes 0.7 K/uL (0.1-1.3); Absolute Neutrophil 3.8 K/uL (1.8-8.0); Basophils % 0.7 % (0-1.3); Eosinophils % 7.4 % (0-4.4); Hematocrit 39.5 % (39.6-49.0); Hemoglobin 12.4 g/dL (13.6-17.9); Lymphocytes % 20.6 % (15.3-44.8); MCH 22.5 pg (27.0-35.0); MCHC 31.5 g/dL (32.0-36.0); MCV 71.5 fL (80-100); MPV 10.2 fL (7.6-11.3); Monocytes % 11.7 % (3.3-12.3); Neutrophils % 59.6 % (41.7-73.7); Platelets 169 thou/uL (152-406); RBC Red Blood Cell Count 5.52 M/uL (4.33-5.43); Red Cell Distribution Width 17.6 % (12.1-15.2)
[2024-02-22 07:05] LABS: Albumin 3.5 g/dL (3.4-5.0); Albumin/Globulin Ratio 0.9 (1.1-1.8); Anion Gap 6.7 mEq/L (5.0-15.0); Bilirubin Total 0.3 mg/dL (0.2-1.0); Globulin 3.8 g/dL (2.3-3.5); Potassium 3.7 mEq/L (3.5-5.1); Protein, Total 7.3 g/dL (6.4-8.2)
[2024-02-22] MEDS ORDERED: FAMOTIDINE 20 MG TAB PO SCH (09:00)
[2024-02-22] MEDS ORDERED: ENOXAPARIN 40 MG/0.4 ML SQ SCH (09:00)
[2024-02-22] MEDS ORDERED: REGADENOSON 0.4 MG/5 ML SYR IV ONE (10:14)
[2024-02-22 10:23] VITALS: O2SAT 96
--- NOTE | 2024-02-22 10:48 | RAD REPORT ---
EXAM DESCRIPTION: NM - Rest Stress Cardiac Imaging - 02/22/2024 10:43 am CLINICAL HISTORY: Chest pain. COMPARISON: None. TECHNIQUE: The patient was administered 10.1 mCi of Tc 99m Sestamibi prior to resting SPECT imaging of the heart. The patient was then administered 27.2 MCi of Tc 99m Sestamibi following exercise or ph armacologic stress. Multiplanar SPECT images were reviewed. FINDINGS: There is uniformity of radiotracer uptake involving the entire left ventricular myocardiu m on rest and stress images. The left ventricular ejection fraction equals 73% IMPRESSION: Negative for a myocardial perfusion defect
[2024-02-22] MEDS: ASPIRIN EC 81 MG TAB PO SCH (11:05)
[2024-02-22] MEDS: POTASSIUM CL SA 10 MEQ TAB PO ONE (11:05)
[2024-02-22 12:32] VITALS: BP 121/78; TEMP 97.7
--- NOTE | 2024-02-22 15:01 | P.DS ---
Admission Date: 02/21/24 Discharge Date: 02/22/24 Disposition: ROUTINE DISCHARGE Discharge Condition: GOOD Reason for Admission: Chest pain Consultations: Cardiology- Dr. Booth Procedures: Nuclear stress testnegative for stress-induced ischemia Brief History of Present Illness: 48-year-old male with history of CAD, hyperlipidemia, gyw-quhpdps-rxfurvkky diabetes, gastric ulcers/GERD presents emergency department chief complaint of chest pain. 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 EMS was activated, he was given 1 nitroglycerin tablet and his symptoms have since resolved. He was evaluated in the emergency department initial high-sensitivity troponin as well as EKG without STEMI criteria, ED wishes to admit under observation for ACS rule out. He had a coronary angiogram performed 11/08/22 which showed severe right PDA stenosis with balloon angioplasty and moderate CAD otherwise. He has not been taking aspirin for a few months now, was taken off Brilinta by cardiology per patient. Patient has also been undergoing treatment/evaluation for GERD/gastric ulcers, he had EGD performed and December of this year and has been on pantoprazole, famotidine and sucralfate at home. He reports the pain was significantly different than this although he has been dealing with some nausea and vomiting the past couple of days. Hospital Course: Patient was admitted to the hospital for chest pain, his cardiac enzymes were negative x 3, he was monitored in telemetry without any significant arrhythmia and he underwent nuclear stress test which was negative for any stress-induced ischemia. Cardiology also saw patient during his hospitalization. He has also remained chest pain-free throughout his hospitalization. He is stable for outpatient follow-up. Continue home medications as previously prescribed Please follow-up with your primary care doctor in 1 to 2 weeks Please also follow-up with cardiology 1 to 2 weeks Assessment: Chest pain rule out ACShistory of CAD GERD/gastric ulcers Diabetes mellitus type 9ccz-gkshtft-jseehveqi Hyperlipidemia General: Alert, In no apparent distress, Oriented x3 HEENT: Atraumatic, PERRLA, EOMI Neck: Supple, 2+ carotid pulse no bruit, No LAD Respiratory: Clear to auscultation bilaterally, Normal air movement Cardiovascular: Regular rate/rhythm, Normal S1 S2 Gastrointestinal: Normal bowel sounds, No tenderness Musculoskeletal: No tenderness Integumentary: No rashes Neurological: Normal speech, Normal strength at 5/5 x4 extr, Normal affect Vital Signs/Physical Exam: Temp Pulse Resp BP Pulse Ox 97.7 F 73 16 121/78 95 02/22/24 12:00 02/22/24 12:00 02/22/24 12:00 02/22/24 12:00 02/22/24 12:00 Laboratory Data at Discharge: WBC 6.40 thou/uL (4.3-10.9) 02/22/24 06:32 Hgb 12.4 g/dL (13.6-17.9) L 02/22/24 06:32 Hct 39.5 % (39.6-49.0) L 02/22/24 06:32 Plt Count 169 thou/uL (152-406) 02/22/24 06:32 PT 11.9 SECONDS (9.4-12.5) 02/21/24 09:55 INR 1.06 02/21/24 09:55 Sodium 139 mEq/L (136-145) 02/22/24 06:32 Potassium 3.7 mEq/L (3.5-5.1) 02/22/24 06:32 BUN 20 mg/dL (7-18) H 02/22/24 06:32 Creatinine 1.14 mg/dL (0.70-1.30) 02/22/24 06:32 Glucose 139 mg/dL (74-106) H 02/22/24 06:32 Total Bilirubin 0.3 mg/dL (0.2-1.0) 02/22/24 06:32 AST 16 U/L (15-37) 02/22/24 06:32 ALT 40 U/L (16-61) 02/22/24 06:32 Alkaline Phosphatase 47 U/L (45-117) 02/22/24 06:32 Triglycerides 183 mg/dL (<150) H 02/22/24 06:32 Cholesterol 109 mg/dL (<200) 02/22/24 06:32 HDL Cholesterol 26 mg/dL (40-60) L 02/22/24 06:32 Cholesterol/HDL Ratio 4.19 02/22/24 06:32 Home Medications: Alcohol Antiseptic Pads [Alcohol Swabs] 1 each TP DAILY #1 box 11/09/22 Blood Sugar Diagnostic [Blood Glucose Test Strip] 1 each MC DAILY #30 strip 11/09/22 Blood-Glucose Meter [Blood Glucose Monitoring] 1 each MC DAILY #1 ea 11/09/22 Fenofibrate 160 mg PO DAILY #30 tab 11/09/22 Lancets [Lancets Thin] 1 each MC DAILY #100 ea 11/09/22 Metformin HCl 500 mg PO BID #60 tab 11/09/22 Pantoprazole [Protonix Tab*] 40 mg PO DAILYAC #30 tab 11/09/22 Pen Needle, Diabetic [Insulin Pen Needle] 1 dis.ndl MC DAILY #100 dis.ndl 11/09/22 Empagliflozin [Jardiance] 20 mg PO DAILY 02/21/24 Famotidine [Pepcid*] 20 mg PO BEDTIME 02/21/24 Rosuvastatin [Crestor*] 20 mg PO DAILY 02/21/24 Sucralfate [Carafate*] 1 gm PO QID 02/21/24 Physician Discharge Instructions: Patient was admitted to the hospital for chest pain, his cardiac enzymes were negative x 3, he was monitored in telemetry without any significant arrhythmia and he underwent nuclear stress test which was negative for any stress-induced ischemia. Cardiology also saw patient during his hospitalization. He has also remained chest pain-free throughout his hospitalization. He is stable for outpatient follow-up. Continue home medications as previously prescribed Please follow-up with your primary care doctor in 1 to 2 weeks Please also follow-up with cardiology 1 to 2 weeks Diet: Regular Activity: Ad janusz Followup: Lance Booth MD [ACTIVE - CAN ADMIT] - 1 Week Lasha Viveros MD [Primary Care Provider] - 1-2 Weeks Time spent managing pt's care (in minutes): 35
--- NOTE | 2024-02-25 07:31 | TREADPHA ---
DX: CHEST PAIN Date of Study: 02/22/2024 Ht: 6' 4 " Wt: 230 lb 0 oz Consulting Physician: MARCIE MEDICATIONS: ASPIRIN, LOVENOX, PEPCID, NOVOLIN-R, PROTONIX, CRESTOR, CARAFATE HISTORY: PAST HISTORY OF MYOCARDIAL INFARCTION 2022, DIABETES MELLITUS TYPE 2 PHYSICIAL EXAMINATION: RESTING B.P.: 104/64 RESTING H.R.: 74 RESTING EKG: SINUS RHYTHM PROTOCOL: PHARMACOLOGIC EXERCISE TIME: 3:30 B.P. AT PEAK STRESS: 124/68 IMPRESSION: LEXISCAN STRESS TEST PERFORMED ORDERED. CARDIOLITE INJECTED PER PROTOCOL. SEE NUCLEAR MEDICINE REPORT. NO SUPRAVENTRICULAR TACHYCARDIA, NO VENTRICULAR TACHYCARDIA, NO ARRHYTHMIAS NOTED. NO SHORTNESS OF BREATH. NO CONCERN.
--- NOTE | 2024-02-25 13:05 | EKG ---
Test Date: 2024-02-21 Test Time: 09:49:13 Cellophane Worker: PH MEASUREMENT RESULTS: Intervals: Rate: 79 WI: 154 QRSD: 84 QT: 358 QTc: 410 [place]: P: 39 WI: 154 QRS: 18 T: 9 INTERPRETIVE STATEMENTS: Normal sinus rhythm T wave abnormality, consider inferior ischemia Abnormal ECG Compared to ECG 11/07/2022 12:56:11 No significant changes Electronically Signed On 02-25-24 12:51:56 CDT by Tucker Pablo
== END 2024-02-22 12:39 | disposition home or self-care (01) ==
LOC: ER 09:09 → INTOOBSV 09:24 → ERHOLD 09:24 → 2ND 12:14
PROVIDERS: ADMIT Internal Medicine; ATTEND Hospitalist
DX: R07.9 Chest pain, unspecified (principal); I25.10 Atherosclerotic heart disease of native coronary artery without angina pectoris; E78.5 Hyperlipidemia, unspecified; E11.9 Type 2 diabetes mellitus without complications; K21.9 Gastro-esophageal reflux disease without esophagitis; K25.9 Gastric ulcer, unspecified as acute or chronic, without hemorrhage or perforation; I25.2 Old myocardial infarction
CPT/HCPCS: 93005; 93017; 85025 ×2; 80048; 36415; 85610; 80061; 82947 ×4; 84484 ×3; 80053; 83880; 71045; 78452; 99285; J2785; A9500; G0378 ×4

== ENCOUNTER 2024-03-18 14:00 | Day surgery (SDC) | payer BC ==
[2024-03-14 12:59] LABS: Absolute Basophils 0.1 K/uL (0-0.5); Absolute Eosinophils 0.4 K/uL (0-0.5); Absolute Lymphocytes (CBC) 1.7 K/uL (0.7-4.9); Absolute Monocytes 0.5 K/uL (0.1-1.3); Absolute Neutrophil 3.1 K/uL (1.8-8.0); Basophils % 1.1 % (0-1.3); Eosinophils % 7.2 % (0-4.4); Hematocrit 40.3 % (39.6-49.0); Hemoglobin 12.7 g/dL (13.6-17.9); Lymphocytes % 28.8 % (15.3-44.8); MCH 22.6 pg (27.0-35.0); MCHC 31.4 g/dL (32.0-36.0); MCV 72.1 fL (80-100); MPV 10.3 fL (7.6-11.3); Monocytes % 9.4 % (3.3-12.3); Neutrophils % 53.5 % (41.7-73.7); Platelets 214 thou/uL (152-406); RBC Red Blood Cell Count 5.59 M/uL (4.33-5.43); Red Cell Distribution Width 17.4 % (12.1-15.2)
[2024-03-14 13:05] LABS: PT Prothrombin Time 11.7 SECONDS (9.4-12.5); PTT, Activated Partial Thromb 33.1 SECONDS (24.3-36.9); Protime INR 1.05
[2024-03-14 13:12] LABS: Anion Gap 9.6 mEq/L (5.0-15.0); Potassium 3.6 mEq/L (3.5-5.1)
--- NOTE | 2024-03-14 16:32 | EKG ---
Test Date: 2024-03-14 Test Time: 13:03:59 Lap Layer: LISANDRA MEASUREMENT RESULTS: Intervals: Rate: 65 FL: 150 QRSD: 92 QT: 400 QTc: 416 [place]: P: 65 FL: 150 QRS: 53 T: -54 INTERPRETIVE STATEMENTS: Normal sinus rhythm T wave abnormality, consider inferior ischemia Abnormal ECG Compared to ECG 02/21/2024 09:49:13 No significant changes Electronically Signed On 03-14-24 16:31:35 CDT by Tucker Pablo
[2024-03-18] MEDS ORDERED: NA CHLORIDE 0.9% 500 ML ONE (14:05)
[2024-03-18] MEDS ORDERED: MIDAZOLAM HCL 2 MG/2 ML INJ ONE (14:18)
[2024-03-18] MEDS ORDERED: FENTANYL CITR 100 MCG/2 ML ONE (14:18)
[2024-03-18] MEDS ORDERED: HEPARIN 10,000 UNIT/10 ML VIAL IV ONE (15:30)
[2024-03-18] MEDS ORDERED: LIDOCAINE 1% 20 ML MDV ONE (15:30)
[2024-03-18] MEDS ORDERED: VERAPAMIL HCL 10 MG/4 ML VIAL IV ONE (15:30)
[2024-03-18] MEDS ORDERED: HEPA 1000U/500MLS 2,000 UNIT/1,000 ML BAG IV ONE (15:30)
[2024-03-18] MEDS ORDERED: CLOPIDOGREL 75 MG TABLET ONE (15:30)
[2024-03-18] MEDS ORDERED: ATROPINE SULF 1 MG/10 ML SYR IV ONE (15:30)
[2024-03-18] MEDS ORDERED: TICAGRELOR 90 MG TABLET PO ONE (15:31)
[2024-03-18] MEDS ORDERED: ASPIRIN 81 MG CHEWABLE TABLET ONE (15:31)
[2024-03-18] MEDS ORDERED: HEPARIN 5000 UNIT/ML 1 ML VIAL ONE (15:31)
[2024-03-18 19:50] VITALS: BP 119/77; O2SAT 95
--- NOTE | 2024-03-20 22:51 | OP ---
Date of Procedure: 03/18/2024 Surgeon: VEENA JACK Procedures Performed: 1.Selective coronary angiogram. 2.Left heart catheterization. Indication: Unstable angina with abnormal stress test. Access: Right radial artery 6-[place], closed with TR band. Complications: None. Bleeding: Less than 50 mL. Anesthesia: Total sedation time was 45 minutes, used fentanyl and Versed. Description Of Procedure: After risks, benefits, and alternatives were explained, patient agreed to procedure and signed informed consent. The patient was brought into cardiac catheterization laborato , prepped and draped in sterile fashion. Then, I accessed right radial artery using pediatric micr opuncture kit, placed 6-[place] Slender sheath and took 5-[place] 4.0 catheter into the aortic ro ot over a J-wire across the aortic valve, measured the LVEDP. Pullback did not record any significan t gradient and then engaged the right coronary artery, took standard views and then engaged the left main, took standard views and removed the catheter and the sheath, placed TR band with good hemostasi s. Findings: 1.Left main is normal. 2.LAD is normal. Normal diagonal branches. Has some luminal irregularity distally. 3.Left circumflex: Proximal 30% stenosis. Rest of it is normal. 4.RCA is dominant, proximal 30% stenosis present. Mid 20% stenosis and distally there is about 20% stenosis. 5.LVEDP is elevated at 70 mmHg. Conclusion: 1.Mild coronary artery disease. 2.Elevated LVEDP. Recommendation: Medical management. /QUETA Voice ID: [id number] Report ID: [id number]
== END 2024-03-18 19:50 | disposition home or self-care (01) ==
LOC: OR 14:00 → CCL 19:50
PROVIDERS: ATTEND Internal Medicine
DX: I25.110 Atherosclerotic heart disease of native coronary artery with unstable angina pectoris (principal); R09.89 Other specified symptoms and signs involving the circulatory and respiratory systems; E78.2 Mixed hyperlipidemia; Z79.85 Long-term (current) use of injectable non-insulin antidiabetic drugs; Z79.84 Long term (current) use of oral hypoglycemic drugs; Z79.899 Other long term (current) drug therapy
CPT/HCPCS: 93005; 85025; 80048; 36415; 85610; 82947; 85730; 93458; 76937; C1893; Q9966; J1644; J2001; J2250; J3010; J7040; 99152; 99153; J0461